=== PATIENT | female | born 1965 | race Caucasian/White ===

== ENCOUNTER → 2016-10-12 | Outpatient (CLI) | payer OTHER ==
[2014-05-21 11:39] VITALS: BP 123/51
[~2016-10-12] MED LIST: CALC-274 PO; COLE1TAB PO; DELTASONE; Diphenoxylate Hcl/Atropine PO; FLUT1DIS5 IH; FOLVITE; GABA-586 PO; GUAI600T47 PO; IBUP-1027 PO; MONT10TA6 PO; NAPR500T PO; OXYC-323 PO; PARO20TA99 PO; PROVENTIL HFA6.7 GM IH; SIMV20TA3 PO; ZIPR80CA2 PO; [UNRECOGNIZED DRUG - CODE]
--- NOTE | 2016-10-12 17:17 | KCIC ---
Bilateral digital diagnostic mammograms: Reason for examination: Left breast lump inferiorly. No previous examinations for comparison. The skin shows some thickening inferiorly at approximately the 7:00 C position of the left breast. The nipples show no abnormalities. No abnormal lymph nodes are seen. The breast parenchyma is predominantly fatty. (Breast density: Category A.) There is a small circumscribed lesion at approximately the 1:30 position 12 cm from the nipple in the left breast with no associated calcification. Ultrasound will follow. There are no other dominant masses, suspicious calcifications or architectural distortions. Impression: Skin thickening inferiorly at approximately the 7:00 C position of the left breast. Small 5 mm nodule in the 1:30 position of the left breast approximately 12 cm from the nipple. Ultrasound to follow. BI-RADS Category 0: Incomplete. Ultrasound to follow. Left breast ultrasound: Ultrasound examination of the left breast was performed with attention to the upper outer quadrant and axilla. In the 12:30 position 9 cm from the nipple, there is a hypoechoic circumscribed lesion measuring 5 mm in size consistent with a small septated cyst. This has benign appearance. There are also nodules consistent with intramammary lymph nodes along the pectoralis muscle in the low axilla at approximately the 1:00 position 12 cm from the nipple. No other focal lesions are seen in the left breast. No abnormal appearing lymph nodes are seen in the left axilla. At the 7:00 position 14 cm from the nipple and corresponding to the area of clinical concern, there appears to be a skin lesion consistent with a sebaceous cyst measuring approximately 1.3 cm in greatest dimension. IMPRESSION: 5 mm hypoechoic lesion consistent with a septated cyst at the 12:30 position of the left breast corresponding to the mammographic finding. Sebaceous cyst in the 7:00 position 14 cm from the nipple corresponding to the area of clinical concern. No suspicious lesion seen. Recommend reevaluation with ultrasound in 6 months. BI-RADS Category 3: Probably Benign. "Our facility is accredited by the [employer]ammography [employer]." This patient's information has been entered into a reminder system for the patient to be notified with the results of her examination and a target date for the next mammogram. Electronically signed by: Ethel Kaplan MD (10/12/2016 5:13 PM) [place] [id number]
== END | disposition home or self-care (01) ==
LOC: KCIC MAMMO 09:44
PROVIDERS: ATTEND Internal Medicine
DX: N63 Unspecified lump in breast (principal); L72.3 Sebaceous cyst
CPT/HCPCS: 76641; G0204; 77066

== ENCOUNTER → 2018-08-24 | Outpatient (CLI) | payer OTHER ==
[2014-05-21 11:39] VITALS: BP 123/51
[~2018-08-24] MED LIST changes: +ALBU2.5V8 IH; -GABA-586 PO; +GABA300C18 PO; +MONT10TA49 PO; -MONT10TA6 PO; +NAPR-683 PO; -NAPR500T PO; -OXYC-323 PO; +OXYC1TAB15 PO; -PROVENTIL HFA6.7 GM IH
--- NOTE | 2018-08-24 16:46 | RAD ---
SHOULDER 2+V RIGHT 08/24/2018 12:00 AM INDICATION: Arthritis COMPARISON: None available. TECHNIQUE: 3 views of the right shoulder are provided. FINDINGS: There is no acute fracture or dislocation. Bone mineralization is within normal limits. Mild joint space narrowing with minimal osteophytosis along the humeral head. Regional soft tissues are within normal limits. There is no soft tissue gas or osseous erosion. IMPRESSION: No acute fracture or dislocation. Mild osteoarthrosis of the right shoulder. Electronically signed by: Saira Payton MD (08/24/2018 4:43 PM) [id number]
== END | disposition home or self-care (01) ==
LOC: RAD 10:07
PROVIDERS: ATTEND Internal Medicine
DX: M19.011 Primary osteoarthritis, right shoulder (principal)
CPT/HCPCS: 73030

== ENCOUNTER 2020-05-14 11:21 | Inpatient (IN) | payer MEDICARE, OTHER ==
[~2020-05-14] VITALS: Ht 154.9 cm; Wt 93.7 kg
[~2020-05-14 11:21] MED LIST changes: -ALBU2.5V8 IH; +PROVENTIL HFA6.7 GM IH; +SIMV20TA18 PO; -SIMV20TA3 PO
[2020-05-14] MEDS ORDERED: methylPREDNISolone SOD SUCC PF 125 MG/2 ML VIAL. IV ONE (11:45)
--- NOTE | 2020-05-14 11:52 | RAD ---
AP chest. HISTORY: Short of air AP view was taken of the chest. Comparison is made with an old study from 2015. Heart is upper normal in size. There is slight blunting of the costophrenic angles small effusions are possible. There is interstitial infiltrates or edema in the lung bases. There has been mild worsening compared to the ol d study. PA and lateral views would be of benefit. IMPRESSION: 1. Possible small effusions. 2. Hazy interstitial lung disease or interstitial infiltrates in the lung bases. Electronically signed by: Ivan Stearns MD (05/14/2020 11:50 AM) [id number]
[2020-05-14] MEDS ORDERED: IPRATRPIUM/ALBUTEROL 0.5/2.5MG 3 ML NEBU. NEB ONE (12:00)
[2020-05-14] MEDS ORDERED: PIPERACILLIN/TAZOBACTAM 3.375 GM in IV NORMAL SALINE 50ML 50 ML IV ONE (12:00)
[2020-05-14 12:08] LABS: BASO % 1 % (0-3); EOS # 0.2 x10^3/uL (0.0-0.7); EOS % 7 % (0-3); HEMOGLOBIN 13.3 g/dL (12.0-15.5); LYMPH # 0.9 x10^3/uL (1.0-4.8); LYMPH % 32 % (24-48); MEAN CORPUSCULAR HEMOGLOBIN 32 pg (25-35); MEAN CORPUSCULAR HGB CONC 33 g/dL (31-37); MEAN CORPUSCULAR VOLUME 97 fL (79-100); MONO # 0.1 x10^3/uL (0.0-1.1); MONO % 3 % (0-9); NEUT # 1.6 x10^3/uL (1.8-7.7); NEUT % 58 % (31-73); PLATELET COUNT 99 x10^3/uL (140-400); RED BLOOD COUNT 4.22 x10^6/uL (3.50-5.40); RED CELL DISTRIBUTION WIDTH 15.9 % (11.5-14.5); WHITE BLOOD COUNT 2.9 x10^3/uL (4.0-11.0)
[2020-05-14 12:25] LABS: CALCIUM 7.6 mg/dL (8.5-10.1); CREATININE 0.8 mg/dL (0.6-1.0); GFR 73.9; POTASSIUM 3.3 mmol/L (3.5-5.1)
[2020-05-14] MEDS ORDERED: ACETAMINOPHEN 325 MG TABLET. PO ONE (12:30)
[2020-05-14 12:31] LABS: ALBUMIN 3.5 g/dL (3.4-5.0); DIRECT BILIRUBIN 0.2 mg/dL (0.0-0.2); TOTAL BILIRUBIN 0.6 mg/dL (0.2-1.0); TOTAL PROTEIN 6.5 g/dL (6.4-8.2)
[2020-05-14] MEDS ORDERED: IOHEXOL 350 MG/ML 100 ML VIAL. IV ONE (12:45)
--- NOTE | 2020-05-14 13:15 | PHYS DOC ---
Past Medical History Past Medical History: Asthma, COPD Additional Past Medical Histor: RA, fibromyalgia Past Surgical History: Tonsillectomy, Tubal ligation Smoking Status: Current Every Day Smoker Alcohol Use: None Drug Use: None General Adult EDM: Chief Complaint: SHORTNESS OF BREATH HPI: HPI: This is a pleasant 55-year-old female presenting the [facility] today wi th shortness of breath and dyspnea over the past 8 days. She is also had productive sputum. She has a history of COPD. It is worse with exertion. She denies any chest pain with her exertional dyspnea. She denies nausea vomiting. On arrival the patient was satting 89% placed on nasal cannula. Review of systems negative for abdominal pain diaphoresis vomiting fevers chills or any new rashes. She denies headache or nuchal rigidity. All other review of systems negative. ED course: 55-year-old female presenting with dyspnea. On arrival she is placed on nasal cannula. EKG obtained which shows sinus rhythm with regular rate. ST segments show mild ST depression in lead V3, V4 and V5. No ST elevation. Does not meet STEMI criteria. Nonspecific findings. Chest x-ray shows possible s mall effusions with hazy interstitial lung disease or infiltrates. White blood cell count is low with a leukopenia of 2.9. Platelet count 99. Chemistry panel shows an elevated proBNP at 153. Troponin within normal limits. Potassium 3.3. D-dimer is 2.09. CT angiogram ordered. Which shows a lung mass. Angiogram negative for pulmonary embolism. Will admit the patient to Dr. Caesar rosenberg's primary physician. Consult placed for our pulmonology team. Review of Systems: Review of Systems: Constitutional: Denies fever or chills. [] Eyes: Denies change in visual acuity. [] HENT: Denies nasal congestion or sore throat. [] Respiratory: Denies cough or shortness of breath. [] Cardiovascular: Denies chest pain or edema. [] GI: Denies abdominal pain, nausea, vomiting, bloody stools or diarrhea. [] : Denies dysuria. [] Musculoskeletal: Denies back pain or joint pain. [] Integument: Denies rash. [] Neurologic: Denies headache, focal weakness or sensory changes. [] Endocrine: Denies polyuria or polydipsia. [] Lymphatic: Denies swollen glands. [] Psychiatric: Denies depression or anxiety. [] Heart Score: C/O Chest Pain: No Risk Factors: Risk Factors: DM, Current or recent (<one month) smoker, HTN, HLP, family history of CAD, obesity. Risk Scores: Score 0 - 3: 2.5% MACE over next 6 weeks - Discharge Home Score 4 - 6: 20.3% MACE over next 6 weeks - Admit for Clinical Observation Score 7 - 10: 72.7% MACE over next 6 weeks - Early Invasive Strategies Current Medications: Current Medications Medications (Trade) Dose Ordered Sig/Mal Start Time Stop Time Status Last Admin Dose Admin Acetaminophen (Tylenol) 650 mg 1X ONCE 05/14/20 12:30 05/14/20 12:32 DC Albuterol/ Ipratropium (Duoneb) 3 ml 1X ONCE 05/14/20 12:00 05/14/20 12:01 DC 05/14/20 12:06 3 ML Iohexol (Omnipaque 350 Mg/ml) 100 ml 1X ONCE 05/14/20 12:45 05/14/20 12:46 DC Methylprednisolone Sodium Succinate (SOLU-Medrol 125MG VIAL) 125 mg 1X ONCE 05/14/20 11:45 05/14/20 11:46 DC 05/14/20 12:25 125 MG Piperacillin Sod/ Tazobactam Sod 3.375 gm/Sodium Chloride 50 ml @ 100 mls/hr 1X ONCE 05/14/20 12:00 05/14/20 12:29 DC 05/14/20 12:25 100 MLS/HR Allergies: Allergies: Allergies Coded Allergies Type Severity Reaction Last Updated Verified furosemide Allergy Intermediate 05/02/14 Yes Physical Exam: PE: Constitutional: Well developed, well nourished, not in extremis, non-toxic appearance. [] HENT: Normocephalic, atraumatic, bilateral external ears normal, oropharynx jacques st, no oral exudates, nose normal. [] Eyes: PERRLA, EOMI, conjunctiva normal, no discharge. [] Neck: Normal range of motion, no tenderness, supple, no stridor. [] Cardiovascular:Heart rate regular rhythm, no murmur [] Lungs & Thorax: Increased work of breathing. Prolonged expiratory phase. Wheezing present bilaterally. Abdomen: Bowel sounds normal, soft, no tenderness, no masses, no pulsatile masses. [] Skin: Warm, dry, no erythema, no rash. [] Back: No tenderness, no CVA tenderness. [] Extremities: No tenderness, no cyanosis, no clubbing, ROM intact, no edema. [] Neurologic: Alert and oriented X 3, normal motor function, normal sensory function, no focal deficits noted. [] Psychologic: Affect normal, judgement normal, mood normal. [] Current Patient Data: Labs: Laboratory Tests Test 05/14/20 11:55 White Blood Count 2.9 x10^3/uL (4.0-11.0) L Red Blood Count 4.22 x10^6/uL (3.50-5.40) Hemoglobin 13.3 g/dL (12.0-15.5) Hematocrit 41.0 % (36.0-47.0) Mean Corpuscular Volume 97 fL (79-100) Mean Corpuscular Hemoglobin 32 pg (25-35) Mean Corpuscular Hemoglobin Concent 33 g/dL (31-37) Red Cell Distribution Width 15.9 % (11.5-14.5) H Platelet Count 99 x10^3/uL (140-400) L Neutrophils (%) (Auto) 58 % (31-73) Lymphocytes (%) (Auto) 32 % (24-48) Monocytes (%) (Auto) 3 % (0-9) Eosinophils (%) (Auto) 7 % (0-3) H Basophils (%) (Auto) 1 % (0-3) Neutrophils # (Auto) 1.6 x10^3/uL (1.8-7.7) L Lymphocytes # (Auto) 0.9 x10^3/uL (1.0-4.8) L Monocytes # (Auto) 0.1 x10^3/uL (0.0-1.1) Eosinophils # (Auto) 0.2 x10^3/uL (0.0-0.7) Basophils # (Auto) 0.0 x10^3/uL (0.0-0.2) D-Dimer (Cyndie) 2.09 ug/mlFEU (0.00-0.50) H Sodium Level 144 mmol/L (136-145) Potassium Level 3.3 mmol/L (3.5-5.1) L Chloride Level 109 mmol/L (98-107) H Carbon Dioxide Level 24 mmol/L (21-32) Anion Gap 11 (6-14) Blood Urea Nitrogen 7 mg/dL (7-20) Creatinine 0.8 mg/dL (0.6-1.0) Estimated GFR (Cockcroft-Gault) 73.9 Glucose Level 127 mg/dL (70-99) H Calcium Level 7.6 mg/dL (8.5-10.1) L Total Bilirubin 0.6 mg/dL (0.2-1.0) Direct Bilirubin 0.2 mg/dL (0.0-0.2) Aspartate Amino Transferase (AST) 102 U/L (15-37) H Alanine Aminotransferase (ALT) 72 U/L (14-59) H Alkaline Phosphatase 55 U/L (46-116) Troponin I Quantitative < 0.017 ng/mL (0.000-0.055) LK-Wzs-J-Type Natriuretic Peptide 153 pg/mL (0-124) H Total Protein 6.5 g/dL (6.4-8.2) Albumin 3.5 g/dL (3.4-5.0) Lipase 114 U/L (73-393) Laboratory Tests 05/14/20 11:55 Laboratory Tests 05/14/20 11:55 Vital Signs: Vital Signs Date Time Temp Pulse Resp B/P (MAP) Pulse Ox O2 Delivery O2 Flow Rate FiO2 05/14/20 12:08 92 Nasal Cannula 3.0 05/14/20 11:25 98.3 95 25 144/77 (99) 98.3 EKG: EKG: [] Radiology/Procedures: Radiology/Procedures: [] Course & Med Decision Making: Course & Med Decision Making Pertinent Labs and Imaging studies reviewed. (See chart for details) [] Dragon Disclaimer: Dragon Disclaimer: This electronic medical record was generated, in whole or in part, using a voice recognition dictation system. Departure Departure Impression: Primary Impression: Hypoxia Additional Impressions: Lung mass COPD exacerbation Pneumonia Disposition: 09 ADMITTED INPT THIS HOSP Admitting Physician: Blane Reece Condition: STABLE Referrals: BLANE REECE MD (PCP) JAY GRIFFITH MD May 14, 2020 13:15
--- NOTE | 2020-05-14 14:22 | RAD ---
CTA CHEST History: Dyspnea Technique: CT of the chest was performed with intravenous contrast. PE protocol. Maximum intensity pr ojection coronal and sagittal reconstructions were performed. Exposure: One or more of the following individualized dose reduction techniques were utilized for thi s examination: 1. Automated exposure control 2. Adjustment of the mA and/or kV according to patient size 3. Use of iterative reconstruction technique. Comparison: None Findings: Chest: Spiculated the right upper lobe nodule measures 2.5 x 2.3 cm. Mildly enlarged right hilar lymp h nodes. Small mediastinal lymph nodes. Right lower lobe solid and groundglass nodule measures 1.5 x 1.7 cm (series 3 image 78). Mild atheromatous plaque within the aortic arch. No large central or segmental pulmonary embolus. Adina luation for distal pulmonary arteries degraded by respiratory motion. No aortic aneurysm or dissectio n. Moderate pulmonary emphysema. Bibasilar interstitial opacities with multifocal groundglass opacities. Upper abdomen: The imaged upper abdomen is unremarkable. Bones: No pathologic osseous lesions. Impression: 1. No definite pulmonary embolus although evaluation for distal pulmonary emboli is degraded by resp iratory motion. 2. Right upper lobe spiculated mass, concerning for primary malignancy. Recommend PET/CT and/or biop sy to further evaluate. 3. Right hilar lymphadenopathy. 4. Right lower lobe solid and groundglass nodule, may represent metastasis. Recommend attention on f ollow-up. 5. Interstitial thickening with multifocal groundglass opacities most prominent within the lung base s, may relate to pulmonary edema or infection although a component of chronic interstitial changes is possible. 6. Moderate pulmonary emphysema. FOR INTERNAL CODING PURPOSES Critical result: Findings discussed with Dr. Castillo at 05/14/2020 2:11 PM. RESULT CODE: (C) Electronically signed by: Abelino Willson DO (05/14/2020 2:20 PM) [id number]
[2020-05-14 17:30] VITALS: BP 152/68
[2020-05-14] MEDS ORDERED: LORA10TA68 PO (18:21)
[2020-05-14] MEDS ORDERED: METH2.5T PO (18:21)
[2020-05-14] MEDS ORDERED: OXYC1TAB22 PO (18:21)
[2020-05-14] MEDS ORDERED: OMEP40CA45 PO (18:21)
[2020-05-14] MEDS ORDERED: LIDO700A21 TP (18:21)
[2020-05-14] MEDS ORDERED: GABA600T7 PO (18:21)
[2020-05-14] MEDS ORDERED: TOCI162P SQ (18:21)
[2020-05-14] MEDS ORDERED: FOLI0.8C PO (18:21)
[2020-05-14] MEDS ORDERED: BENZ-8 PO (18:21)
[2020-05-14] MEDS ORDERED: OMEG1CAP50 PO (18:21)
[2020-05-14] MEDS ORDERED: ALBU2.5V8 IH (18:21)
[2020-05-14] MEDS ORDERED: TOPI50TA8 PO (18:21)
[2020-05-14] MEDS ORDERED: BUDE10.2 IH (18:21)
[2020-05-14] MEDS ORDERED: DICL100G54 TP (18:21)
[2020-05-14] MEDS ORDERED: ASPI-886 PO (18:21)
[2020-05-14] MEDS ORDERED: IPRA3AMP29 NEB (18:21)
[2020-05-14 19:00] VITALS: BP 176/84
[2020-05-14] MEDS ORDERED: BENZONATATE 100 MG CAPSULE. PO PRN (19:30)
[2020-05-14] MEDS ORDERED: ALBUTEROL SULFATE 8GM INHALER. INH PRN (19:30)
[2020-05-14] MEDS ORDERED: DEXAMETHASONE SOD PHOS 4 MG/ML VIAL IVP ONE (20:00)
[2020-05-14] MEDS: AZITHROMYCIN 500 MG in IV NORMAL SALINE 250ML 250 ML IV SCH (20:25)
[2020-05-14] MEDS: cefTRIAXone IV Push 1 GM VIAL. IVP SCH (20:25)
[2020-05-14] MEDS: GABAPENTIN 300 MG CAPSULE. PO SCH (20:26)
[2020-05-14] MEDS: TOPIRAMATE 25 MG TABLET. PO SCH (20:26)
[2020-05-14] MEDS: MONTELUKAST SODIUM 10 MG TABLET. PO SCH (20:26)
[2020-05-14] MEDS: DICLOFENAC SODIUM 1% TOPICAL GEL 100GM TUBE. TP SCH (20:27)
[2020-05-14] MEDS: PATCH REMOVAL. MC SCH (20:50)
[2020-05-14] MEDS: HYDROcodone/APAP 10/325 1 TAB TABLET PO PRN (20:58)
[2020-05-14 22:50] VITALS: BP 128/59
[2020-05-15] MEDS: DEXAMETHASONE SOD PHOS 4 MG/ML VIAL IVP SCH ×4 (00:52→18:07)
[2020-05-15 03:16] VITALS: BP 137/64
[2020-05-15] MEDS: PANTOPRAZOLE 40 MG TABLET.DR. PO SCH (06:10)
[2020-05-15 06:17] LABS: BASO % 0 % (0-3); EOS % 0 % (0-3); HEMATOCRIT 41.1 % (36.0-47.0); HEMOGLOBIN 13.6 g/dL (12.0-15.5); LYMPH # 0.4 x10^3/uL (1.0-4.8); LYMPH % 13 % (24-48); MEAN CORPUSCULAR HEMOGLOBIN 32 pg (25-35); MEAN CORPUSCULAR HGB CONC 33 g/dL (31-37); MEAN CORPUSCULAR VOLUME 97 fL (79-100); MONO % 1 % (0-9); NEUT # 2.9 x10^3/uL (1.8-7.7); NEUT % 86 % (31-73); PLATELET COUNT 111 x10^3/uL (140-400); RED BLOOD COUNT 4.23 x10^6/uL (3.50-5.40); RED CELL DISTRIBUTION WIDTH 15.8 % (11.5-14.5); WHITE BLOOD COUNT 3.3 x10^3/uL (4.0-11.0)
[2020-05-15 06:33] LABS: ALBUMIN 3.3 g/dL (3.4-5.0); ALBUMIN/GLOBULIN RATIO 0.9 (1.0-1.7); CALCIUM 7.5 mg/dL (8.5-10.1); CREATININE 0.7 mg/dL (0.6-1.0); GFR 86.2; POTASSIUM 4.1 mmol/L (3.5-5.1); TOTAL BILIRUBIN 0.5 mg/dL (0.2-1.0); TOTAL PROTEIN 6.8 g/dL (6.4-8.2)
[2020-05-15 07:00] VITALS: BP 147/65
[2020-05-15 08:38] LABS: % BANDS 4 % (0-9); % LYMPHS 13 % (24-48); % MONOS 1 % (0-10); % SEGS 82 % (35-66); NUCLEATED RBC 2; PLT ESTIMATE DECREASED (ADEQUATE)
--- NOTE | 2020-05-15 08:38 | PDOC ---
Provider Note Date of Service: DATE: 05/15/20 TIME: 08:38 Provider Note H&P dictated.#[id number]. Justifications for Admission Other Justification MEGHAN REECE MD May 15, 2020 08:38
[2020-05-15] MEDS: DICLOFENAC SODIUM 1% TOPICAL GEL 100GM TUBE. TP SCH ×4 (09:00→20:40)
[2020-05-15] MEDS: LIDOCAINE (700MG/PATCH) PATCH. TP SCH ×2 (09:38→13:40)
--- NOTE | 2020-05-15 10:54 | CONS ---
DATE OF CONSULTATION: 05/15/2020 PULMONARY CONSULTATION ATTENDING PHYSICIAN: Blane Nino MD REASON FOR CONSULTATION: Lung mass, dyspnea. HISTORY OF PRESENT ILLNESS: The patient is a 55-year-old female who smoked for about 25 years, quit 4 years ago. She was brought into the hospital with complaint of shortness of breath and wheezing. The patient states she had productive sputum, which was initially yellow-green and then had some blood-tinged sputum as well. No chest pain. No headache. No nausea or vomiting. No diarrhea. No dysuria. No focal weakness. She was hypoxic on arrival and was placed on nasal cannula. Saturations were 89% on room air. Her EKG showed some mild ST segment depressions. She underwent CTA chest, which was reviewed by me. The patient has a mass in the right upper lobe spiculated 2.5 x 2.3 cm in size. She has mildly enlarged right hilar lymph nodes. She also has a right lower lobe partly solid and ground glass nodule measuring 1.5 cm. The patient has evidence of emphysema. There were also bilateral lower lobe interstitial opacities. Consultation requested for further evaluation and management. She has a COVID test, which is pending. PAST MEDICAL HISTORY: Significant for long tobacco use, suspect COPD, history of fibromyalgia and rheumatoid arthritis. PAST SURGICAL HISTORY: Tonsillectomy and tubal ligation. SOCIAL HISTORY: Smoker for 25 years, quit 4 years ago. ALLERGIES: FUROSEMIDE. MEDICATIONS: Reviewed as listed in the MRAD including Lovenox, full dose and she is on dexamethasone along with antibiotic, Rocephin and Zithromax. REVIEW OF SYSTEMS: Twelve-point system obtained. Pertinent positives discussed in my history of present illness, otherwise noncontributory. All systems that were negative were reviewed as well. FAMILY HISTORY: Noncontributory to lungs. PHYSICAL EXAMINATION: VITAL SIGNS: Reviewed. Pulse ox 93% on 3 liters. NECK: Supple. LUNGS: With diminished breath sounds with occasional wheezes. CARDIOVASCULAR: With a regular rate. ABDOMEN: Soft. EXTREMITIES: With no pitting edema. LABORATORY DATA: Reviewed. Her white cell count 3.3, hemoglobin 13.6 and platelets are 111. BUN 18, creatinine 0.7. Troponin less than 0.017. The proBNP is 153. D-dimer 2.09. IMPRESSION: 1. Acute hypoxic respiratory failure secondary to acute exacerbation of chronic obstructive pulmonary disease and interstitial pneumonia. 2. Less likely congestive heart failure. The proBNP is normal. 3. Abnormal CT chest with a spiculated 2.5 cm mass in the right upper lobe, mildly enlarged right hilar lymph node. She also has a partly solid and partly ground glass nodule 1.5 cm in the right lower lobe. This is suspicious for underlying malignancy. She did have a weight loss of 16 pounds, but it was intentional. 4. Leukopenia, could be viral infection. Needs to rule out COVID-19. RECOMMENDATIONS: 1. Continue present oxygen, keep saturation 92% and above. 2. No evidence of pulmonary embolism. Lovenox dose can be reduced to 40 mg subcutaneous daily. 3. Continue IV steroids. 4. Continue nebulizer treatment. 5. Continue empiric antibiotics. 6. Discussed with the patient regarding the option of CT-guided biopsy. We will schedule it on Monday once COVID is ruled out. 7. Discussed with RN and we will follow along with you. YANE WILKINS MD DR: PETER/nandini JOB#: [id number] / [id number]
[2020-05-15 11:00] VITALS: BP 124/60
[2020-05-15] MEDS: OMEGA-3 FATTY ACIDS/FISH OIL 1,000 MG CAPSULE. PO SCH (11:48)
[2020-05-15] MEDS: CETIRIZINE HCL 10 MG TABLET. PO SCH (11:48)
[2020-05-15] MEDS: ASPIRIN ENTERIC COATED 81 MG TABLET.DR. PO SCH (11:48)
[2020-05-15] MEDS: FOLIC ACID 1 MG TABLET. PO SCH (11:48)
[2020-05-15] MEDS: GABAPENTIN 300 MG CAPSULE. PO SCH ×3 (11:48→20:39)
[2020-05-15] MEDS: TOPIRAMATE 25 MG TABLET. PO SCH ×2 (11:49→20:39)
[2020-05-15] MEDS: PARoxetine 20 MG TABLET PO SCH (11:49)
--- NOTE | 2020-05-15 13:10 | HP ---
ADMIT DATE: 05/14/2020 REASON FOR ADMISSION TO THE HOSPITAL: Cough, shortness of breath and possibility of COVID pneumonia. HISTORY OF PRESENT ILLNESS: The patient is a 55-year-old female. The patient has rheumatoid arthritis. She is on immunosuppressant medication, methotrexate injection once a week from Rheumatology. She was having cough and congestion with some phlegm, got progressively worse and came to the Emergency Room. She was hypoxic, 89 on room air, was placed on oxygen. Chest x-ray shows some basilar infiltrates. Her D-dimer was elevated, so CTA was done. No PE, but shows a lung mass with adenopathy and some basilar infiltrates. The patient was admitted for treatment of pneumonia and further workup for the lung nodule. PAST MEDICAL HISTORY: 1. History of rheumatoid arthritis. 2. Fibromyalgia. 3. Hypertension. 4. Hyperlipidemia. 5. COPD. PAST SURGICAL HISTORY: 1. She has had a tubal ligation. 2. She had a left hip replacement for aseptic necrosis. ALLERGIES: To FUROSEMIDE. MEDICATIONS AT HOME: 1. Albuterol inhaler. 2. DuoNeb four times daily. 3. Methotrexate 2.5 mg six tablets once a week. 4. Oxycodone 10/325. 5. Albuterol inhaler. 6. Symbicort 2 puffs twice a day. 7. Calcium with vitamin D. 8. Actemra injection subcutaneously weekly. 9. Folic acid daily. 10 Aspirin 81 mg daily. 11. Voltaren gel. 12. Folic acid 1 daily. 13. Gabapentin 600 mg three times daily. 14. Mucinex. 15. Lidoderm patch daily. 16. Loratadine daily. 17. Singulair 10 mg daily. 18. Fish oil daily. 19. Omeprazole 40 mg daily. 20. Paxil 20 mg daily. 21. Topiramate 50 mg twice a day. PERSONAL AND SOCIAL HISTORY: Smoked one and a half pack for more than 30 years. Denies alcohol. The patient is on chronic pain medications. FAMILY HISTORY: Positive for emphysema, cancers in the family and hypertension. REVIEW OF SYMPTOMS: Complains of cough, some light tinged phlegm. More wheezing, shortness of breath, feeling tired. Rest of the 14 system was reviewed and negative. PHYSICAL EXAMINATION: GENERAL: Female, in mild distress secondary to coughing spells. VITAL SIGNS: Temperature 97, pulse 80, respirations 18, saturation 89 on room air, blood pressure 144/77. HEENT: Head is atraumatic. Pupils equal. Oral cavity, slight congestion. NECK: Supple. Thyroid not enlarged. JVD not elevated. CHEST: Symmetrical. CARDIOVASCULAR: S1, S2. LUNGS: Bilateral wheezing. ABDOMEN: Soft. Bowel sounds present. No mass palpable. EXTERNAL GENITALIA: No Krishnamurthy. RECTAL: Deferred. EXTREMITIES: No calf tenderness. No edema. Scar of left hip replacement. NEUROLOGIC: Moving all extremities. No focal deficits noted. LABORATORY DATA: Shows a white count of 2.9, hemoglobin 13, platelets 99. D-dimer 2.0. Electrolytes are sodium 144, potassium 3.3, chloride 109, bicarbonate 24, anion gap 11, BUN 7, creatinine 0.8, glucose 127. AST 102, ALT 72. BNP 153. Troponin was negative. Lipase was normal. IMAGING: Chest x-ray shows lung disease, infiltrates in the lung bases. CT of the chest angiogram shows no pulmonary embolism. Right upper lobe mass 2.5 cm. Right lower, another mass, 1.5 x 1.7 cm. Right hilar adenopathy. Interstitial thickening. Opacities at the bases. Pulmonary emphysema. FINAL IMPRESSION: 1. Lung infiltrates in the bases. Possibility of pneumonia, rule out COVID infection. 2. Right lung mass with adenopathy as well as another mass in the lower right lung, rule out metastasis. 3. Rheumatoid arthritis, on immunosuppressants, methotrexate and Actemra injections. 4. Chronic smoker for more than 30 years. 5. Fibromyalgia. PLAN: At this time, the patient is admitted to the hospital. Broad-spectrum antibiotics after blood and sputum cultures. Started on Rocephin and Zithromax. Dexamethasone was added for bronchospasm. Also, nose swab for COVID. Also, pulmonary consultation. DVT prophylaxis with high dose Lovenox. See how she improves in the next 24-48 hours. MEGHAN REECE MD DR: HANY/nandini JOB#: [id number] / [id number]
[2020-05-15 15:00] VITALS: BP 124/62
[2020-05-15] MEDS: HYDROcodone/APAP 10/325 1 TAB TABLET PO PRN ×2 (16:40→23:25)
--- NOTE | 2020-05-15 17:02 | NUR ---
SW following for discharge planning. Pt admitted with pneumonia. Pt on 3l 02. Pt on a cardiac diet. Pt COVID pending. SW following.
[2020-05-15 19:00] VITALS: BP 134/61
[2020-05-15] MEDS: AZITHROMYCIN 500 MG in IV NORMAL SALINE 250ML 250 ML IV SCH (19:59)
[2020-05-15] MEDS: cefTRIAXone IV Push 1 GM VIAL. IVP SCH (20:00)
[2020-05-15] MEDS: MONTELUKAST SODIUM 10 MG TABLET. PO SCH (20:39)
[2020-05-15] MEDS: PATCH REMOVAL. MC SCH (20:45)
[2020-05-15 22:55] VITALS: BP 115/57
[2020-05-15] MEDS ORDERED: SIMETHICONE 80 MG TAB.CHEW PO PRN (23:00)
[2020-05-16] MEDS: DEXAMETHASONE SOD PHOS 4 MG/ML VIAL IVP SCH ×4 (00:14→17:49)
[2020-05-16 03:57] VITALS: BP 126/61
[2020-05-16] MEDS: PANTOPRAZOLE 40 MG TABLET.DR. PO SCH (05:53)
[2020-05-16 07:00] VITALS: BP 153/74
[2020-05-16] MEDS: GABAPENTIN 300 MG CAPSULE. PO SCH ×3 (08:47→22:38)
[2020-05-16] MEDS: OMEGA-3 FATTY ACIDS/FISH OIL 1,000 MG CAPSULE. PO SCH (08:47)
[2020-05-16] MEDS: ASPIRIN ENTERIC COATED 81 MG TABLET.DR. PO SCH (08:47)
[2020-05-16] MEDS: PARoxetine 20 MG TABLET PO SCH (08:48)
[2020-05-16] MEDS: CETIRIZINE HCL 10 MG TABLET. PO SCH (08:48)
[2020-05-16] MEDS: ENOXAPARIN 40 MG/0.4 ML SYRINGE. SQ SCH (08:48)
[2020-05-16] MEDS: TOPIRAMATE 25 MG TABLET. PO SCH ×2 (08:48→22:39)
[2020-05-16] MEDS: FOLIC ACID 1 MG TABLET. PO SCH (08:48)
[2020-05-16] MEDS: DICLOFENAC SODIUM 1% TOPICAL GEL 100GM TUBE. TP SCH ×4 (08:49→21:00)
[2020-05-16] MEDS: HYDROcodone/APAP 10/325 1 TAB TABLET PO PRN (09:04)
--- NOTE | 2020-05-16 10:15 | PDOC ---
IM PROGRESS NOTES- Subjective Subjective Has cough and congestion. She is feeling slightly better. Objective Vitals/I&O Vital Signs Date Time Temp Pulse Resp B/P (MAP) Pulse Ox O2 Delivery O2 Flow Rate FiO2 05/16/20 09:04 20 92 Nasal Cannula 3.0 05/16/20 07:00 97.7 68 153/74 (100) 97.7 I & O 05/15/20 05/15/20 05/16/20 15:00 23:00 07:00 Intake Total 320 ml 120 ml Balance 320 ml 120 ml Physical Exam Physical Exam General appearance - alert,ill appearing, and in mild distress and oriented to person, place, and time Mental Status - alert, oriented to person, place, and time, affect appropriate to mood Head - normal Chest -decreased breath sounds at bases with occasional coarse breath sounds. Heart - S1 and S2 normal Abdomen - soft, nontender Neurological - alert and oriented Extremities - no pedal edema Meds Current Medications Medications (Trade) Dose Ordered Sig/Mal Route PRN Reason Start Time Stop Time Status Last Admin Dose Admin Enoxaparin Sodium (Lovenox 40mg Syringe) 40 mg DAILY SQ 05/16/20 09:00 05/16/20 08:48 Simethicone (Gas-X) 80 mg PRN TID PRN PO GAS / BLOATING 05/15/20 23:00 05/15/20 23:25 Assessment Assessment 1. Lung infiltrates in the bases. Possibility of pneumonia, rule out COVID infection. 2. Right lung mass with adenopathy as well as another mass in the lower right lung, rule out metastasis. 3. Rheumatoid arthritis, on immunosuppressants, methotrexate and Actemra injections. 4. Chronic smoker for more than 30 years. 5. Fibromyalgia. PLAN: At this time, the patient is admitted to the hospital. Broad-spectrum antibiotics after blood and sputum cultures. Started on Rocephin and Zithromax. Dexamethasone was added for bronchospasm. Also, nose swab for COVID. Also, pulmonary consultation. DVT prophylaxis with Lovenox. COVID-19 pneumonia. Patient is on IV Rocephin, Zithromax and IV Decadron. Consider treatment with remdesivir Consult Dr. Melvin Rajan for infectious disease evaluation and management. Recheck labs in a.m. Lung biopsy at a later date once COVID-19 infection is better. Discussed with Dr. Seth. Monitor blood sugar. The results discussed with the patient. Patient's will also get tested for COVID-19 today. Plan Plan For more details regarding further plans, please refer to the orders. Justifications for Admission Other Justification KARIS VERAS MD May 16, 2020 10:15
--- NOTE | 2020-05-16 10:59 | PDOC ---
PULMONARY PROGRESS NOTES DATE: 05/16/20 TIME: 10:57 Subjective no soa on O2 Vitals Vital Signs Date Time Temp Pulse Resp B/P (MAP) Pulse Ox O2 Delivery O2 Flow Rate FiO2 05/16/20 09:04 20 92 Nasal Cannula 3.0 05/16/20 07:00 97.7 68 153/74 (100) 97.7 General: Alert Lungs: Clear Cardiovascular: S1 Abdomen: Soft Neuro Exam: Alert Extremities: No Edema Skin: Warm Labs Laboratory Tests Test 05/14/20 11:55 05/14/20 11:57 05/15/20 04:40 White Blood Count 2.9 x10^3/uL (4.0-11.0) 3.3 x10^3/uL (4.0-11.0) Red Blood Count 4.22 x10^6/uL (3.50-5.40) 4.23 x10^6/uL (3.50-5.40) Hemoglobin 13.3 g/dL (12.0-15.5) 13.6 g/dL (12.0-15.5) Hematocrit 41.0 % (36.0-47.0) 41.1 % (36.0-47.0) Mean Corpuscular Volume 97 fL (79-100) 97 fL (79-100) Mean Corpuscular Hemoglobin 32 pg (25-35) 32 pg (25-35) Mean Corpuscular Hemoglobin Concent 33 g/dL (31-37) 33 g/dL (31-37) Red Cell Distribution Width 15.9 % (11.5-14.5) 15.8 % (11.5-14.5) Platelet Count 99 x10^3/uL (140-400) 111 x10^3/uL (140-400) Neutrophils (%) (Auto) 58 % (31-73) 86 % (31-73) Lymphocytes (%) (Auto) 32 % (24-48) 13 % (24-48) Monocytes (%) (Auto) 3 % (0-9) 1 % (0-9) Eosinophils (%) (Auto) 7 % (0-3) 0 % (0-3) Basophils (%) (Auto) 1 % (0-3) 0 % (0-3) Neutrophils # (Auto) 1.6 x10^3/uL (1.8-7.7) 2.9 x10^3/uL (1.8-7.7) Lymphocytes # (Auto) 0.9 x10^3/uL (1.0-4.8) 0.4 x10^3/uL (1.0-4.8) Monocytes # (Auto) 0.1 x10^3/uL (0.0-1.1) 0.0 x10^3/uL (0.0-1.1) Eosinophils # (Auto) 0.2 x10^3/uL (0.0-0.7) 0.0 x10^3/uL (0.0-0.7) Basophils # (Auto) 0.0 x10^3/uL (0.0-0.2) 0.0 x10^3/uL (0.0-0.2) D-Dimer (Cyndie) 2.09 ug/mlFEU (0.00-0.50) Sodium Level 144 mmol/L (136-145) 141 mmol/L (136-145) Potassium Level 3.3 mmol/L (3.5-5.1) 4.1 mmol/L (3.5-5.1) Chloride Level 109 mmol/L (98-107) 109 mmol/L (98-107) Carbon Dioxide Level 24 mmol/L (21-32) 23 mmol/L (21-32) Anion Gap 11 (6-14) 9 (6-14) Blood Urea Nitrogen 7 mg/dL (7-20) 8 mg/dL (7-20) Creatinine 0.8 mg/dL (0.6-1.0) 0.7 mg/dL (0.6-1.0) Estimated GFR (Cockcroft-Gault) 73.9 86.2 Glucose Level 127 mg/dL (70-99) 148 mg/dL (70-99) Calcium Level 7.6 mg/dL (8.5-10.1) 7.5 mg/dL (8.5-10.1) Total Bilirubin 0.6 mg/dL (0.2-1.0) 0.5 mg/dL (0.2-1.0) Direct Bilirubin 0.2 mg/dL (0.0-0.2) Aspartate Amino Transf (AST/SGOT) 102 U/L (15-37) 83 U/L (15-37) Alanine Aminotransferase (ALT/SGPT) 72 U/L (14-59) 74 U/L (14-59) Alkaline Phosphatase 55 U/L (46-116) 51 U/L (46-116) Troponin I Quantitative < 0.017 ng/mL (0.000-0.055) ND-Gdp-W-Type Natriuretic Peptide 153 pg/mL (0-124) Total Protein 6.5 g/dL (6.4-8.2) 6.8 g/dL (6.4-8.2) Albumin 3.5 g/dL (3.4-5.0) 3.3 g/dL (3.4-5.0) Lipase 114 U/L (73-393) Coronavirus (PCR) Detected (Not Detected) Segmented Neutrophils % 82 % (35-66) Band Neutrophils % 4 % (0-9) Lymphocytes % 13 % (24-48) Monocytes % 1 % (0-10) Nucleated Red Blood Cells 2 Platelet Estimate Decreased (ADEQUATE) Giant Platelets Occ BUN/Creatinine Ratio 11 (6-20) Albumin/Globulin Ratio 0.9 (1.0-1.7) Medications Active Scripts Medications Dose Route/Sig Max Daily Dose Days Date Category Dose Instructions Topiramate 50 Mg Tablet 1 Tab PO BID 30 05/14/20 Reported Percocet 10-325 Mg Tablet (Oxycodone/Acetaminophen) 1 Each Tablet 1 Tab PO PRN BID PRN MDD 2 Tablet(s) 5 05/14/20 Reported Omeprazole 40 Mg Capsule.dr 1 Cap PO DAILY 05/14/20 Reported Methotrexate (Methotrexate Sodium) 2.5 Mg Tablet 6 Tab PO QSU 05/14/20 Reported Lidocaine PATCH (Lidocaine) 1 Each Adh..patch 1 Each TP DAILY 05/14/20 Reported REMOVE AFTER 12 HOURS Gabapentin 600 Mg Tablet 600 Mg PO TID 05/14/20 Reported Folic Acid 0.8 Mg Capsule 1 Cap PO DAILY 30 05/14/20 Reported Fish Oil 1,000 Mg Softgel ([place]-3 Fatty Acids/Fish Oil) 1 Each Capsule 2 Cap PO DAILY 30 05/14/20 Reported Voltaren (Diclofenac Sodium) 100 Gm Gel..gram. 1 Gm TP QID 30 05/14/20 Reported apply to affected area(s) Claritin (Loratadine) 10 Mg Tablet 1 Tab PO DAILY 30 05/14/20 Reported Symbicort 160-4.5 Mcg Inhaler (Budesonide/Formoterol Fumarate) 10.2 Gm Hfa.aer.ad 2 Puff IH BID 05/14/20 Reported Duoneb 0.5-3(2.5) Mg/3 Ml (Albuterol/Ipratropium) 3 Ml Ampul.neb 3 Ml NEB QID 05/14/20 Reported Benzonatate 100 Mg Capsule 100 Mg PO TID PRN 05/14/20 Reported Aspirin Ec (Aspirin) 81 Mg Tablet.dr 81 Mg PO DAILY 05/14/20 Reported Actemra Actpen (Tocilizumab) 162 Mg/0.9 Ml Pen.injctr 162 Mg SQ QSU 05/14/20 Reported Proair Hfa (Albuterol Sulfate) 8.5 Gm Hfa.aer.ad 2 Puff IH PRN Q4-6HRS PRN 21 05/14/20 Reported [Diphenoxylate Hcl/Atropine] 1 TAB Tablet 1 Tab PO PRN QID PRN 05/21/14 Rx Singulair Tablet (Montelukast Sodium) 10 Mg Tablet 10 Mg PO HS 05/02/13 Reported [Deltasone] 05/02/13 Reported [Folvite] DAILY 05/02/13 Reported Mucinex (Guaifenesin) 600 Mg Tablet.er 600 Mg PO BID 05/02/13 Reported Proventil Hfa Inhaler (Albuterol Sulfate) 6.7 Gm Hfa.aer.ad 6.7 Gm IH Q4HRS 05/02/13 Reported Percocet 5-325 Mg Tablet (Oxycodone/Acetaminophen) 1 Each Tablet 1 Each PO Q4HRS 05/02/13 Reported [Lioresol] TID 05/02/13 Reported Paxil (Paroxetine Hcl) 20 Mg Tablet 20 Mg PO DAILY 05/02/13 Reported Calcium + Vitamin D3 Caplet (Calcium Carb & Cit/Vitamin D3) 1 Each Tablet.er 1 Each PO 05/02/13 Reported Impression . 1. Acute hypoxic respiratory failure secondary to acute exacerbation of chronic obstructive pulmonary disease and viral interstitial pneumonia./ COVID-19 positive 2. Less likely congestive heart failure. The proBNP is normal. 3. Abnormal CT chest with a spiculated 2.5 cm mass in the right upper lobe, mildly enlarged right hilar lymph node. She also has a partly solid and partly ground glass nodule 1.5 cm in the right lower lobe. This is suspicious for underlying malignancy. She did have a weight loss of 16 pounds, but it was intentional. 4. Leukopenia, could be viral infection. due to COVID-19. Plan . 1. Continue present oxygen, keep saturation 92% and above. 2. No evidence of pulmonary embolism. Lovenox dose reduced to 40 mg subcutaneous daily. 3. Continue IV steroids. 4. Continue nebulizer treatment. 5. Continue empiric antibiotics. 6. cance CT-guided biopsy . will do as OP in 1-2 weeks 7. Discussed with RN and we will follow along with you. YANE WILKINS MD May 16, 2020 10:59
[2020-05-16 11:00] VITALS: BP 113/53
[2020-05-16] MEDS ORDERED: REMDESIVIR LOAD in IV NORMAL SALINE 250ML TV IV ONE (12:00)
[2020-05-16 15:00] VITALS: BP 132/61
[2020-05-16] MEDS: INSULIN LISPRO 300 UNITS/3 ML VIAL. SQ SCH (16:30)
[2020-05-16 19:55] VITALS: BP 146/67
[2020-05-16] MEDS: PATCH REMOVAL. MC SCH (21:00)
[2020-05-16] MEDS: cefTRIAXone IV Push 1 GM VIAL. IVP SCH (22:38)
[2020-05-16] MEDS: AZITHROMYCIN 500 MG in IV NORMAL SALINE 250ML 250 ML IV SCH (22:38)
[2020-05-16] MEDS: MONTELUKAST SODIUM 10 MG TABLET. PO SCH (22:39)
[2020-05-16 23:38] VITALS: BP 151/70
[2020-05-17 03:24] VITALS: BP 143/67
[2020-05-17] MEDS: DEXAMETHASONE SOD PHOS 4 MG/ML VIAL IVP SCH ×4 (06:26→21:39)
[2020-05-17 06:32] LABS: BASO % 0 % (0-3); EOS % 0 % (0-3); HEMATOCRIT 42.4 % (36.0-47.0); HEMOGLOBIN 13.8 g/dL (12.0-15.5); LYMPH % 16 % (24-48); MEAN CORPUSCULAR HEMOGLOBIN 32 pg (25-35); MEAN CORPUSCULAR HGB CONC 33 g/dL (31-37); MEAN CORPUSCULAR VOLUME 97 fL (79-100); MONO # 0.2 x10^3/uL (0.0-1.1); MONO % 4 % (0-9); NEUT % 80 % (31-73); PLATELET COUNT 144 x10^3/uL (140-400); RED BLOOD COUNT 4.39 x10^6/uL (3.50-5.40); RED CELL DISTRIBUTION WIDTH 15.8 % (11.5-14.5); WHITE BLOOD COUNT 6.2 x10^3/uL (4.0-11.0)
[2020-05-17 07:00] VITALS: BP 165/76
[2020-05-17 07:13] LABS: ALBUMIN/GLOBULIN RATIO 0.9 (1.0-1.7); CALCIUM 7.5 mg/dL (8.5-10.1); CREATININE 0.9 mg/dL (0.6-1.0); GFR 64.5; POTASSIUM 3.9 mmol/L (3.5-5.1); TOTAL BILIRUBIN 0.4 mg/dL (0.2-1.0); TOTAL PROTEIN 6.4 g/dL (6.4-8.2)
[2020-05-17] MEDS: INSULIN LISPRO 300 UNITS/3 ML VIAL. SQ SCH ×2 (07:30→16:30)
--- NOTE | 2020-05-17 08:03 | PDOC ---
Infectious Disease Note Vital Sign Vital Signs Vital Signs Date Time Temp Pulse Resp B/P (MAP) Pulse Ox O2 Delivery O2 Flow Rate FiO2 05/17/20 03:24 98.5 63 16 143/67 (92) 95 Nasal Cannula 2.0 98.5 Labs Lab Laboratory Tests Test 05/16/20 11:57 05/16/20 17:15 05/17/20 05:40 05/17/20 07:26 Glucose (Fingerstick) 180 mg/dL (70-99) 175 mg/dL (70-99) 110 mg/dL (70-99) White Blood Count 6.2 x10^3/uL (4.0-11.0) Red Blood Count 4.39 x10^6/uL (3.50-5.40) Hemoglobin 13.8 g/dL (12.0-15.5) Hematocrit 42.4 % (36.0-47.0) Mean Corpuscular Volume 97 fL (79-100) Mean Corpuscular Hemoglobin 32 pg (25-35) Mean Corpuscular Hemoglobin Concent 33 g/dL (31-37) Red Cell Distribution Width 15.8 % (11.5-14.5) Platelet Count 144 x10^3/uL (140-400) Neutrophils (%) (Auto) 80 % (31-73) Lymphocytes (%) (Auto) 16 % (24-48) Monocytes (%) (Auto) 4 % (0-9) Eosinophils (%) (Auto) 0 % (0-3) Basophils (%) (Auto) 0 % (0-3) Neutrophils # (Auto) 5.0 x10^3/uL (1.8-7.7) Lymphocytes # (Auto) 1.0 x10^3/uL (1.0-4.8) Monocytes # (Auto) 0.2 x10^3/uL (0.0-1.1) Eosinophils # (Auto) 0.0 x10^3/uL (0.0-0.7) Basophils # (Auto) 0.0 x10^3/uL (0.0-0.2) Sodium Level 145 mmol/L (136-145) Potassium Level 3.9 mmol/L (3.5-5.1) Chloride Level 112 mmol/L (98-107) Carbon Dioxide Level 27 mmol/L (21-32) Anion Gap 6 (6-14) Blood Urea Nitrogen 24 mg/dL (7-20) Creatinine 0.9 mg/dL (0.6-1.0) Estimated GFR (Cockcroft-Gault) 64.5 BUN/Creatinine Ratio 27 (6-20) Glucose Level 111 mg/dL (70-99) Calcium Level 7.5 mg/dL (8.5-10.1) Total Bilirubin 0.4 mg/dL (0.2-1.0) Aspartate Amino Transf (AST/SGOT) 23 U/L (15-37) Alanine Aminotransferase (ALT/SGPT) 47 U/L (14-59) Alkaline Phosphatase 48 U/L (46-116) Total Protein 6.4 g/dL (6.4-8.2) Albumin 3.0 g/dL (3.4-5.0) Albumin/Globulin Ratio 0.9 (1.0-1.7) Objective Assessment pt seen, consult dictated Plan Plan of Care / CALEB PARKER MD May 17, 2020 08:03
[2020-05-17] MEDS: OMEGA-3 FATTY ACIDS/FISH OIL 1,000 MG CAPSULE. PO SCH (08:21)
[2020-05-17] MEDS: ASPIRIN ENTERIC COATED 81 MG TABLET.DR. PO SCH (08:21)
[2020-05-17] MEDS: GABAPENTIN 300 MG CAPSULE. PO SCH ×3 (08:24→21:38)
[2020-05-17] MEDS: FOLIC ACID 1 MG TABLET. PO SCH (08:26)
[2020-05-17] MEDS: PARoxetine 20 MG TABLET PO SCH (08:26)
[2020-05-17] MEDS: CETIRIZINE HCL 10 MG TABLET. PO SCH (08:26)
[2020-05-17] MEDS: PANTOPRAZOLE 40 MG TABLET.DR. PO SCH (08:26)
[2020-05-17] MEDS: TOPIRAMATE 25 MG TABLET. PO SCH ×2 (08:27→21:38)
[2020-05-17] MEDS: ENOXAPARIN 40 MG/0.4 ML SYRINGE. SQ SCH ×2 (08:27→21:38)
[2020-05-17] MEDS: DICLOFENAC SODIUM 1% TOPICAL GEL 100GM TUBE. TP SCH ×5 (08:28→21:00)
[2020-05-17] MEDS: LIDOCAINE (700MG/PATCH) PATCH. TP SCH ×2 (08:28→09:00)
[2020-05-17] MEDS: HYDROcodone/APAP 10/325 1 TAB TABLET PO PRN ×2 (10:07→21:58)
--- NOTE | 2020-05-17 10:11 | PDOC ---
PULMONARY PROGRESS NOTES DATE: 05/17/20 TIME: 10:07 Subjective Pt. remains on 4 liters N/C afebrile no increased SOA or cough Vitals Vital Signs Date Time Temp Pulse Resp B/P (MAP) Pulse Ox O2 Delivery O2 Flow Rate FiO2 05/17/20 07:00 97.8 65 18 165/76 (105) 95 Nasal Cannula 2.0 97.8 ROS: No Nausea, No Chest Pain, No Abdominal Pain, No Increase Cough General: Alert Lungs: Clear Cardiovascular: S1, S2 Abdomen: Soft Neuro Exam: Alert Extremities: No Edema Skin: Warm, Dry Labs Laboratory Tests Test 05/16/20 11:57 05/16/20 17:15 05/17/20 05:40 05/17/20 07:26 Glucose (Fingerstick) 180 mg/dL (70-99) 175 mg/dL (70-99) 110 mg/dL (70-99) White Blood Count 6.2 x10^3/uL (4.0-11.0) Red Blood Count 4.39 x10^6/uL (3.50-5.40) Hemoglobin 13.8 g/dL (12.0-15.5) Hematocrit 42.4 % (36.0-47.0) Mean Corpuscular Volume 97 fL (79-100) Mean Corpuscular Hemoglobin 32 pg (25-35) Mean Corpuscular Hemoglobin Concent 33 g/dL (31-37) Red Cell Distribution Width 15.8 % (11.5-14.5) Platelet Count 144 x10^3/uL (140-400) Neutrophils (%) (Auto) 80 % (31-73) Lymphocytes (%) (Auto) 16 % (24-48) Monocytes (%) (Auto) 4 % (0-9) Eosinophils (%) (Auto) 0 % (0-3) Basophils (%) (Auto) 0 % (0-3) Neutrophils # (Auto) 5.0 x10^3/uL (1.8-7.7) Lymphocytes # (Auto) 1.0 x10^3/uL (1.0-4.8) Monocytes # (Auto) 0.2 x10^3/uL (0.0-1.1) Eosinophils # (Auto) 0.0 x10^3/uL (0.0-0.7) Basophils # (Auto) 0.0 x10^3/uL (0.0-0.2) Sodium Level 145 mmol/L (136-145) Potassium Level 3.9 mmol/L (3.5-5.1) Chloride Level 112 mmol/L (98-107) Carbon Dioxide Level 27 mmol/L (21-32) Anion Gap 6 (6-14) Blood Urea Nitrogen 24 mg/dL (7-20) Creatinine 0.9 mg/dL (0.6-1.0) Estimated GFR (Cockcroft-Gault) 64.5 BUN/Creatinine Ratio 27 (6-20) Glucose Level 111 mg/dL (70-99) Calcium Level 7.5 mg/dL (8.5-10.1) Total Bilirubin 0.4 mg/dL (0.2-1.0) Aspartate Amino Transf (AST/SGOT) 23 U/L (15-37) Alanine Aminotransferase (ALT/SGPT) 47 U/L (14-59) Alkaline Phosphatase 48 U/L (46-116) Total Protein 6.4 g/dL (6.4-8.2) Albumin 3.0 g/dL (3.4-5.0) Albumin/Globulin Ratio 0.9 (1.0-1.7) Laboratory Tests Test 05/16/20 11:57 05/16/20 17:15 05/17/20 05:40 05/17/20 07:26 Glucose (Fingerstick) 180 mg/dL (70-99) 175 mg/dL (70-99) 110 mg/dL (70-99) White Blood Count 6.2 x10^3/uL (4.0-11.0) Red Blood Count 4.39 x10^6/uL (3.50-5.40) Hemoglobin 13.8 g/dL (12.0-15.5) Hematocrit 42.4 % (36.0-47.0) Mean Corpuscular Volume 97 fL (79-100) Mean Corpuscular Hemoglobin 32 pg (25-35) Mean Corpuscular Hemoglobin Concent 33 g/dL (31-37) Red Cell Distribution Width 15.8 % (11.5-14.5) Platelet Count 144 x10^3/uL (140-400) Neutrophils (%) (Auto) 80 % (31-73) Lymphocytes (%) (Auto) 16 % (24-48) Monocytes (%) (Auto) 4 % (0-9) Eosinophils (%) (Auto) 0 % (0-3) Basophils (%) (Auto) 0 % (0-3) Neutrophils # (Auto) 5.0 x10^3/uL (1.8-7.7) Lymphocytes # (Auto) 1.0 x10^3/uL (1.0-4.8) Monocytes # (Auto) 0.2 x10^3/uL (0.0-1.1) Eosinophils # (Auto) 0.0 x10^3/uL (0.0-0.7) Basophils # (Auto) 0.0 x10^3/uL (0.0-0.2) Sodium Level 145 mmol/L (136-145) Potassium Level 3.9 mmol/L (3.5-5.1) Chloride Level 112 mmol/L (98-107) Carbon Dioxide Level 27 mmol/L (21-32) Anion Gap 6 (6-14) Blood Urea Nitrogen 24 mg/dL (7-20) Creatinine 0.9 mg/dL (0.6-1.0) Estimated GFR (Cockcroft-Gault) 64.5 BUN/Creatinine Ratio 27 (6-20) Glucose Level 111 mg/dL (70-99) Calcium Level 7.5 mg/dL (8.5-10.1) Total Bilirubin 0.4 mg/dL (0.2-1.0) Aspartate Amino Transf (AST/SGOT) 23 U/L (15-37) Alanine Aminotransferase (ALT/SGPT) 47 U/L (14-59) Alkaline Phosphatase 48 U/L (46-116) Total Protein 6.4 g/dL (6.4-8.2) Albumin 3.0 g/dL (3.4-5.0) Albumin/Globulin Ratio 0.9 (1.0-1.7) Medications Active Scripts Medications Dose Route/Sig Max Daily Dose Days Date Category Dose Instructions Topiramate 50 Mg Tablet 1 Tab PO BID 30 05/14/20 Reported Percocet 10-325 Mg Tablet (Oxycodone/Acetaminophen) 1 Each Tablet 1 Tab PO PRN BID PRN MDD 2 Tablet(s) 5 05/14/20 Reported Omeprazole 40 Mg Capsule. 1 Cap PO DAILY 05/14/20 Reported Methotrexate (Methotrexate Sodium) 2.5 Mg Tablet 6 Tab PO QSU 05/14/20 Reported Lidocaine PATCH (Lidocaine) 1 Each Adh..patch 1 Each TP DAILY 05/14/20 Reported REMOVE AFTER 12 HOURS Gabapentin 600 Mg Tablet 600 Mg PO TID 05/14/20 Reported Folic Acid 0.8 Mg Capsule 1 Cap PO DAILY 30 05/14/20 Reported Fish Oil 1,000 Mg Softgel ([place]-3 Fatty Acids/Fish Oil) 1 Each Capsule 2 Cap PO DAILY 30 05/14/20 Reported Voltaren (Diclofenac Sodium) 100 Gm Gel..gram. 1 Gm TP QID 30 05/14/20 Reported apply to affected area(s) Claritin (Loratadine) 10 Mg Tablet 1 Tab PO DAILY 30 05/14/20 Reported Symbicort 160-4.5 Mcg Inhaler (Budesonide/Formoterol Fumarate) 10.2 Gm Hfa.aer.ad 2 Puff IH BID 05/14/20 Reported Duoneb 0.5-3(2.5) Mg/3 Ml (Albuterol/Ipratropium) 3 Ml Ampul.neb 3 Ml NEB QID 05/14/20 Reported Benzonatate 100 Mg Capsule 100 Mg PO TID PRN 05/14/20 Reported Aspirin Ec (Aspirin) 81 Mg Tablet. 81 Mg PO DAILY 05/14/20 Reported Actemra Actpen (Tocilizumab) 162 Mg/0.9 Ml Pen.injctr 162 Mg SQ QSU 05/14/20 Reported Proair Hfa (Albuterol Sulfate) 8.5 Gm Hfa.aer.ad 2 Puff IH PRN Q4-6HRS PRN 21 05/14/20 Reported [Diphenoxylate Hcl/Atropine] 1 TAB Tablet 1 Tab PO PRN QID PRN 05/21/14 Rx Singulair Tablet (Montelukast Sodium) 10 Mg Tablet 10 Mg PO HS 05/02/13 Reported [Deltasone] 05/02/13 Reported [Folvite] DAILY 05/02/13 Reported Mucinex (Guaifenesin) 600 Mg Tablet.er 600 Mg PO BID 05/02/13 Reported Proventil Hfa Inhaler (Albuterol Sulfate) 6.7 Gm Hfa.aer.ad 6.7 Gm IH Q4HRS 05/02/13 Reported Percocet 5-325 Mg Tablet (Oxycodone/Acetaminophen) 1 Each Tablet 1 Each PO Q4HRS 05/02/13 Reported [Lioresol] TID 05/02/13 Reported Paxil (Paroxetine Hcl) 20 Mg Tablet 20 Mg PO DAILY 05/02/13 Reported Calcium + Vitamin D3 Caplet (Calcium Carb & Cit/Vitamin D3) 1 Each Tablet.er 1 Each PO 05/02/13 Reported Comments CTA chest Impression: 1. No definite pulmonary embolus although evaluation for distal pulmonary emboli is degraded by respiratory motion. 2. Right upper lobe spiculated mass, concerning for primary malignancy. Recommend PET/CT and/or biopsy to further evaluate. 3. Right hilar lymphadenopathy. 4. Right lower lobe solid and groundglass nodule, may represent metastasis. Recommend attention on follow-up. 5. Interstitial thickening with multifocal groundglass opacities most prominent within the lung bases, may relate to pulmonary edema or infection although a component of chronic interstitial changes is possible. 6. Moderate pulmonary emphysema. Impression . 1. Acute hypoxic respiratory failure secondary to acute exacerbation of chronic obstructive pulmonary disease and viral interstitial pneumonia./ COVID-19 positive 2. Less likely congestive heart failure. The proBNP is normal. 3. Abnormal CT chest with a spiculated 2.5 cm mass in the right upper lobe, mildly enlarged right hilar lymph node. She also has a partly solid and partly ground glass nodule 1.5 cm in the right lower lobe. This is suspicious for underlying malignancy. She did have a weight loss of 16 pounds, but it was intentional. 4. Leukopenia, could be viral infection. due to COVID-19. Plan . Continue present oxygen, keep saturation 92% and above. CTA chest reviewed no PE CXR in am Continue IV steroids Continue remdesivir for full 5 day course Continue nebulizer treatment Continue empiric antibiotics CT-guided biopsy---will do as OP in 1-2 weeks DVT/GI PPX - Lovenox dose reduced to 40 mg subcutaneous daily. D/W YANE RIOS MD May 17, 2020 10:11
--- NOTE | 2020-05-17 10:47 | PDOC ---
PROGRESS NOTES Date of Service: DATE: 05/17/20 TIME: 10:45 Subjective Subjective cough Objective Objective Vital Signs Date Time Temp Pulse Resp B/P (MAP) Pulse Ox O2 Delivery O2 Flow Rate FiO2 05/17/20 10:07 19 95 Nasal Cannula 3.0 05/17/20 07:00 97.8 65 165/76 (105) 97.8 Intake and Output 05/17/20 07:00 Intake Total 210 ml Output Total 0 ml Balance 210 ml Intake Oral 210 ml Output Urine Total 0 ml # Voids 1 Physical Exam Abdomen: Soft Heart: Normal S1, Normal S2 Extremities: No clubbing General: Alert HEENT: Atraumatic Lungs: Other (wheezing) MUSCULOSKELETAL: No swelling Neck: No JVD Neuro: Normal speech Psych/Mental Status: Mental status NL Skin: No breakdown Diagnosis Problem List Problems Medical Problems: (1) COPD exacerbation Status: Acute (2) Hypoxia Status: Acute (3) Lung mass Status: Acute (4) Pneumonia Status: Acute Assessment Assessment 1. Lung infiltrates in the bases. Covid Pneumonia infection. 2. Right lung mass with adenopathy as well as another mass in the lower right lung, rule out metastasis. 3. Rheumatoid arthritis, on immunosuppressants, methotrexate and Actemra injections. 4. Chronic smoker for more than 30 years. 5. Fibromyalgia. PLAN: covid positive Remdesivir started yesterday 05/16/20 IV dexa methasone tid Medium dose Loveneox bid IV reocephin. At this time, the patient is admitted to the hospital. Broad-spectrum antibiotics after blood and sputum cultures. Started on Rocephin and Zithromax. Dexamethasone was added for bronchospasm. Also, nose swab for COVID. Also, pulmonary consultation. DVT prophylaxis with Lovenox. COVID-19 pneumonia. Patient is on IV Rocephin, Zithromax and IV Decadron. Consider treatment with remdesivir Consult Dr. Melvin Rajan for infectious disease evaluation and management. Recheck labs in a.m. Lung biopsy at a later date once COVID-19 infection is better. Discussed with Dr. Seth. Monitor blood sugar. The results discussed with the patient. Patient's will also get tested for COVID-19 today. Plan Plan of Care Problems Medical Problems: (1) COPD exacerbation Status: Acute (2) Hypoxia Status: Acute (3) Lung mass Status: Acute (4) Pneumonia Status: Acute Comment Review of Relevant I have reviewed the following items edgardo (where applicable) has been applied. Labs Laboratory Tests Test 05/16/20 11:57 05/16/20 17:15 05/17/20 05:40 05/17/20 07:26 Glucose (Fingerstick) 180 mg/dL (70-99) 175 mg/dL (70-99) 110 mg/dL (70-99) White Blood Count 6.2 x10^3/uL (4.0-11.0) Red Blood Count 4.39 x10^6/uL (3.50-5.40) Hemoglobin 13.8 g/dL (12.0-15.5) Hematocrit 42.4 % (36.0-47.0) Mean Corpuscular Volume 97 fL (79-100) Mean Corpuscular Hemoglobin 32 pg (25-35) Mean Corpuscular Hemoglobin Concent 33 g/dL (31-37) Red Cell Distribution Width 15.8 % (11.5-14.5) Platelet Count 144 x10^3/uL (140-400) Neutrophils (%) (Auto) 80 % (31-73) Lymphocytes (%) (Auto) 16 % (24-48) Monocytes (%) (Auto) 4 % (0-9) Eosinophils (%) (Auto) 0 % (0-3) Basophils (%) (Auto) 0 % (0-3) Neutrophils # (Auto) 5.0 x10^3/uL (1.8-7.7) Lymphocytes # (Auto) 1.0 x10^3/uL (1.0-4.8) Monocytes # (Auto) 0.2 x10^3/uL (0.0-1.1) Eosinophils # (Auto) 0.0 x10^3/uL (0.0-0.7) Basophils # (Auto) 0.0 x10^3/uL (0.0-0.2) Sodium Level 145 mmol/L (136-145) Potassium Level 3.9 mmol/L (3.5-5.1) Chloride Level 112 mmol/L (98-107) Carbon Dioxide Level 27 mmol/L (21-32) Anion Gap 6 (6-14) Blood Urea Nitrogen 24 mg/dL (7-20) Creatinine 0.9 mg/dL (0.6-1.0) Estimated GFR (Cockcroft-Gault) 64.5 BUN/Creatinine Ratio 27 (6-20) Glucose Level 111 mg/dL (70-99) Calcium Level 7.5 mg/dL (8.5-10.1) Total Bilirubin 0.4 mg/dL (0.2-1.0) Aspartate Amino Transf (AST/SGOT) 23 U/L (15-37) Alanine Aminotransferase (ALT/SGPT) 47 U/L (14-59) Alkaline Phosphatase 48 U/L (46-116) Total Protein 6.4 g/dL (6.4-8.2) Albumin 3.0 g/dL (3.4-5.0) Albumin/Globulin Ratio 0.9 (1.0-1.7) Medications Current Medications Dexamethasone Sodium Phosphate (Decadron) 4 mg Q8HRS IVP ; Start 05/17/20 at 14:00 Enoxaparin Sodium (Lovenox 40mg Syringe) 40 mg BID SQ ; Start 05/17/20 at 21:00 Insulin Human Lispro (HumaLOG) 0-8 UNITS BIDBFRMEAL SQ ; Start 05/16/20 at 16:30 Remdesivir 100 mg/ Sodium Chloride 230 ml @ 460 mls/hr Q24H IV ; Start 05/17/20 at 12:00; Stop 05/20/20 at 12:29 Remdesivir 200 mg/ Sodium Chloride 210 ml @ 210 mls/hr 1X ONCE IV Last administered on 05/16/20at 13:04; Start 05/16/20 at 12:00; Stop 05/16/20 at 12:59; Status DC Vitals/I & O Vital Sign - Last 24 Hours 05/16/20 05/16/20 05/16/20 05/16/20 11:00 15:00 19:55 20:00 Temp 98.1 98.1 98.4 98.1 98.1 98.4 Pulse 72 60 60 Resp 17 17 18 B/P (MAP) 113/53 (73) 132/61 (84) 146/67 (93) Pulse Ox 92 97 96 O2 Delivery Nasal Cannula Nasal Cannula Nasal Cannula Nasal Cannula O2 Flow Rate 2.0 2.0 2.0 2.0 4/3/05/17/20 05/17/20 05/17/20 23:38 03:24 07:00 10:07 Temp 98.0 98.5 97.8 98.0 98.5 97.8 Pulse 64 63 65 Resp 18 16 18 19 B/P (MAP) 151/70 (97) 143/67 (92) 165/76 (105) Pulse Ox 97 95 95 95 O2 Delivery Nasal Cannula Nasal Cannula Nasal Cannula Nasal Cannula O2 Flow Rate 2.0 2.0 2.0 3.0 Intake and Output 05/16/20 05/16/20 05/17/20 15:00 23:00 07:00 Intake Total 210 ml Output Total 0 ml Balance 210 ml Justifications for Admission Other Justification MEGHAN REECE MD May 17, 2020 10:47
[2020-05-17 11:00] VITALS: BP 117/61
[2020-05-17] MEDS: REMDESIVIR 100mg in NORMAL SALINE 250ML X 4 DAYS IV SCH (12:46)
[2020-05-17 15:00] VITALS: BP 136/63
[2020-05-17 20:26] VITALS: BP 135/63
[2020-05-17] MEDS: PATCH REMOVAL. MC SCH (21:00)
[2020-05-17] MEDS: MONTELUKAST SODIUM 10 MG TABLET. PO SCH (21:37)
[2020-05-17] MEDS: cefTRIAXone IV Push 1 GM VIAL. IVP SCH (21:37)
--- NOTE | 2020-05-17 21:50 | CONS ---
DATE OF CONSULTATION: 05/17/2020 REQUESTING PHYSICIAN: Dr. Feliz Catalan. REASON FOR CONSULTATION: COVID positive. HISTORY OF PRESENT ILLNESS: This is a 55-year-old female who was admitted with shortness of breath. The patient has had cough and shortness of breath, produced some sputum with even blood in it off and on, weight loss, although she was trying to lose weight. The patient was noted to have pulmonary mass and biopsy has been planned, although COVID was checked and it is positive. The patient is feeling comfortable on 3 liters right now with 95% oxygen saturation. No nausea, vomiting, diarrhea. Denies any headache, visual symptoms, chest pain, abdominal pain, urinary symptoms or bowel symptoms. PAST MEDICAL HISTORY: Positive for rheumatoid arthritis, on methotrexate, hyperlipidemia, peripheral neuropathy, gastroesophageal reflux disease, fibromyalgia, has had hip joint replacement done in the past, history of depression. SOCIAL HISTORY: Negative for smoking, alcohol, or illicit drug use. ALLERGIES: LISTED ALLERGIC TO FUROSEMIDE. CURRENT MEDICATIONS: Reviewed. The patient is on remdesivir, azithromycin and ceftriaxone. REVIEW OF SYSTEMS: As per HPI, all other systems reviewed are negative. PHYSICAL EXAMINATION: GENERAL: Alert, oriented female, not in distress. VITAL SIGNS: Stable. Afebrile. HEENT: NAD. NECK: Supple. No JVP. No lymphadenopathy. LUNGS: Clear. HEART: S1, S2 regular. ABDOMEN: Soft, nontender. No organomegaly. EXTREMITIES: No edema or cyanosis. SKIN: Unremarkable. NEUROLOGIC: The patient is alert, awake and appropriate. No focal neurologic deficit. LABORATORY DATA: White count when she came in was 2.9, it is improved to 6.2, platelets are normal. BUN and creatinine is 24 and 0.9. Her COVID is positive. Chest x-ray and subsequent CT showed right upper lobe spiculated mass with right hilar lymphadenopathy, right lower lobe solid and ground-glass nodule, interstitial thickening with multifocal ground-glass opacity. IMPRESSION: 1. COVID-19 positive. 2. Pulmonary spiculated mass with hilar lymphadenopathy, concerning for malignancy. Biopsy has been pending. 3. Rheumatoid arthritis. 4. Obesity. 5. Chronic obstructive pulmonary disease. 6. Fibromyalgia. RECOMMENDATIONS: Continue current management, soon to be able to discharge. We will discontinue azithromycin. Rocephin can be switched over to oral or discontinued and if the oxygen saturation is normal on room air, then the patient can be discharged to have a biopsy later on as that has been planned. Thank you very much, Dr. Nino, for giving me the opportunity to participate in this patient's care. CALEB PARKER MD DR: LORENA/nandini JOB#: [id number] / [id number]
[2020-05-17 23:52] VITALS: BP 185/79
[2020-05-18 03:09] VITALS: BP 142/69
[2020-05-18] MEDS: DEXAMETHASONE SOD PHOS 4 MG/ML VIAL IVP SCH ×3 (06:07→22:00)
[2020-05-18 07:00] VITALS: BP 131/59
[2020-05-18] MEDS: INSULIN LISPRO 300 UNITS/3 ML VIAL. SQ SCH ×2 (07:30→16:30)
[2020-05-18] MEDS: OMEGA-3 FATTY ACIDS/FISH OIL 1,000 MG CAPSULE. PO SCH (08:08)
[2020-05-18] MEDS: PARoxetine 20 MG TABLET PO SCH (08:09)
[2020-05-18] MEDS: PANTOPRAZOLE 40 MG TABLET.DR. PO SCH (08:09)
[2020-05-18] MEDS: FOLIC ACID 1 MG TABLET. PO SCH (08:09)
[2020-05-18] MEDS: ASPIRIN ENTERIC COATED 81 MG TABLET.DR. PO SCH (08:09)
[2020-05-18] MEDS: TOPIRAMATE 25 MG TABLET. PO SCH ×2 (08:09→20:33)
[2020-05-18] MEDS: GABAPENTIN 300 MG CAPSULE. PO SCH ×3 (08:10→20:33)
[2020-05-18] MEDS: CETIRIZINE HCL 10 MG TABLET. PO SCH (08:10)
[2020-05-18] MEDS: ENOXAPARIN 40 MG/0.4 ML SYRINGE. SQ SCH ×2 (08:10→20:42)
--- NOTE | 2020-05-18 08:23 | RAD ---
XR CHEST 1V INDICATION: hypoxia / Spl. Instructions: / History: . COMPARISON STUDY: 05/14/2020. FINDINGS: Lungs: Normal lung volume. Improving bibasilar opacities. Pleura: No pleural effusion or pneumothorax. Heart and Mediastinum: Stable cardiomediastinal silhouette and great vessels. Bones and Soft Tissues: Stable regional skeleton and soft tissues. IMPRESSION: Improving bibasilar heterogeneous opacities. Electronically signed by: Maxime Pendleton MD (05/18/2020 8:21 AM) [id number]
--- NOTE | 2020-05-18 08:57 | PDOC ---
PROGRESS NOTES Date of Service: DATE: 05/18/20 TIME: 08:55 Subjective Subjective fells better today Objective Objective Vital Signs Date Time Temp Pulse Resp B/P (MAP) Pulse Ox O2 Delivery O2 Flow Rate FiO2 05/18/20 07:00 98.1 60 17 131/59 (83) 96 Room Air 98.1 05/17/20 20:00 2.0 Intake and Output 05/18/20 07:00 Intake Total 360 ml Balance 360 ml Intake Oral 360 ml # Voids 2 # Bowel Movements 1 Physical Exam Abdomen: Soft Heart: Normal S1, Normal S2 Extremities: No clubbing General: Alert HEENT: Atraumatic Lungs: Other (wheezing) MUSCULOSKELETAL: No swelling Neck: No JVD Neuro: Normal speech Psych/Mental Status: Mental status NL Skin: No breakdown Diagnosis Problem List Problems Medical Problems: (1) COPD exacerbation Status: Acute (2) Hypoxia Status: Acute (3) Lung mass Status: Acute (4) Pneumonia Status: Acute Assessment Assessment 1. Lung infiltrates in the bases. Covid Pneumonia infection. 2. Right lung mass with adenopathy as well as another mass in the lower right lung, rule out metastasis. 3. Rheumatoid arthritis, on immunosuppressants, methotrexate and Actemra injections. 4. Chronic smoker for more than 30 years. 5. Fibromyalgia. PLAN: cxr improving day #3 remdicivr dexametahsone tid lovenox bid. conrinue to improve covid positive Remdesivir started yesterday 05/16/20 IV dexa methasone tid Medium dose Loveneox bid IV reocephin. At this time, the patient is admitted to the hospital. Broad-spectrum antibiotics after blood and sputum cultures. Started on Rocephin and Zithromax. Dexamethasone was added for bronchospasm. Also, nose swab for COVID. Also, pulmonary consultation. DVT prophylaxis with Lovenox. COVID-19 pneumonia. Patient is on IV Rocephin, Zithromax and IV Decadron. Consider treatment with remdesivir Consult Dr. Melvin Rajan for infectious disease evaluation and management. Recheck labs in a.m. Lung biopsy at a later date once COVID-19 infection is better. Discussed with Dr. Seth. Monitor blood sugar. The results discussed with the patient. Patient's will also get tested for COVID-19 today. Plan Plan of Care Problems Medical Problems: (1) COPD exacerbation Status: Acute (2) Hypoxia Status: Acute (3) Lung mass Status: Acute (4) Pneumonia Status: Acute Comment Review of Relevant I have reviewed the following items edgardo (where applicable) has been applied. Labs Laboratory Tests Test 05/17/20 11:06 05/17/20 17:23 05/17/20 20:54 05/18/20 07:59 Glucose (Fingerstick) 227 mg/dL (70-99) 137 mg/dL (70-99) 182 mg/dL (70-99) 121 mg/dL (70-99) Medications Current Medications Dexamethasone Sodium Phosphate (Decadron) 4 mg Q8HRS IVP Last administered on 05/18/20at 06:07; Start 05/17/20 at 14:00 Enoxaparin Sodium (Lovenox 40mg Syringe) 40 mg BID SQ Last administered on 05/18/20at 08:10; Start 05/17/20 at 21:00 Remdesivir 100 mg/ Sodium Chloride 230 ml @ 460 mls/hr Q24H IV Last administered on 05/17/20at 12:46; Start 05/17/20 at 12:00; Stop 05/20/20 at 12:29 Vitals/I & O Vital Sign - Last 24 Hours 05/17/20 05/17/20 05/17/20 05/17/20 10:07 11:00 11:07 15:00 Temp 97.8 98.4 97.8 98.4 Pulse 80 75 Resp 19 18 19 18 B/P (MAP) 117/61 (79) 136/63 (87) Pulse Ox 95 93 93 92 O2 Delivery Nasal Cannula Room Air Room Air Nasal Cannula O2 Flow Rate 3.0 2.0 05/17/20 05/17/20 05/17/20 05/17/20 20:00 20:26 21:58 22:58 Temp 98.7 98.7 Pulse 67 B/P (MAP) 135/63 (87) O2 Delivery Room Air Room Air Room Air O2 Flow Rate 2.0 05/17/20 05/18/20 05/18/20 23:52 03:09 07:00 Temp 98.0 98.3 98.1 98.0 98.3 98.1 Pulse 62 56 60 Resp 18 18 17 B/P (MAP) 185/79 (114) 142/69 (93) 131/59 (83) Pulse Ox 96 96 O2 Delivery Room Air Room Air Room Air Intake and Output 05/17/20 05/17/20 05/18/20 15:00 23:00 07:00 Intake Total 100 ml 260 ml Balance 100 ml 260 ml Justifications for Admission Other Justification MEGHAN REECE MD May 18, 2020 08:57
[2020-05-18] MEDS: LIDOCAINE (700MG/PATCH) PATCH. TP SCH (09:00)
[2020-05-18] MEDS: DICLOFENAC SODIUM 1% TOPICAL GEL 100GM TUBE. TP SCH ×4 (09:00→20:42)
[2020-05-18] MEDS: HYDROcodone/APAP 10/325 1 TAB TABLET PO PRN ×2 (09:09→17:04)
--- NOTE | 2020-05-18 09:18 | PDOC ---
Infectious Disease Note Subjective Subjective pt is feeling good, off o2, cough with bloody sputum present ROS ROS no n/v/d/ Vital Sign Vital Signs Vital Signs Date Time Temp Pulse Resp B/P (MAP) Pulse Ox O2 Delivery O2 Flow Rate FiO2 05/18/20 07:00 98.1 60 17 131/59 (83) 96 Room Air 98.1 05/17/20 20:00 2.0 Physical Exam PHYSICAL EXAM GENERAL: Alert, oriented female, not in distress. VITAL SIGNS: Stable. Afebrile. HEENT: NAD. NECK: Supple. No JVP. No lymphadenopathy. LUNGS: Clear. HEART: S1, S2 regular. ABDOMEN: Soft, nontender. No organomegaly. EXTREMITIES: No edema or cyanosis. SKIN: Unremarkable. NEUROLOGIC: The patient is alert, awake and appropriate. No focal neurologic deficit. Labs Lab Laboratory Tests Test 05/17/20 11:06 05/17/20 17:23 05/17/20 20:54 05/18/20 07:59 Glucose (Fingerstick) 227 mg/dL (70-99) 137 mg/dL (70-99) 182 mg/dL (70-99) 121 mg/dL (70-99) Objective Assessment IMPRESSION: 1. COVID-19 positive. 2. Pulmonary spiculated mass with hilar lymphadenopathy, concerning for malignancy. Biopsy has been pending. 3. Rheumatoid arthritis. 4. Obesity. 5. Chronic obstructive pulmonary disease. 6. Fibromyalgia. Plan Plan of Care augmentin ok to d/c biopsy later planned CALEB PARKER MD May 18, 2020 09:18
--- NOTE | 2020-05-18 10:25 | NUR ---
SW following for discharge planning. Spoke with RN and reviewed chart. COVID result came back positive. Pt on IV Remdesivir until 05/20. Pt advanced to room air and abx change from IV to oral per ID. Discharge plan is home, self-care. SW following as needed.
[2020-05-18 11:00] VITALS: BP 116/57
[2020-05-18] MEDS: REMDESIVIR 100mg in NORMAL SALINE 250ML X 4 DAYS IV SCH (11:59)
--- NOTE | 2020-05-18 12:11 | PDOC ---
PULMONARY PROGRESS NOTES DATE: 05/18/20 TIME: 12:10 Subjective Pt. remains on 4 liters N/C afebrile no increased SOA or cough Vitals Vital Signs Date Time Temp Pulse Resp B/P (MAP) Pulse Ox O2 Delivery O2 Flow Rate FiO2 05/18/20 11:00 96.7 67 20 116/57 (76) 95 Room Air 96.7 05/17/20 20:00 2.0 ROS: No Nausea, No Chest Pain, No Abdominal Pain, No Increase Cough General: Alert Lungs: Clear Cardiovascular: S1, S2 Abdomen: Soft Neuro Exam: Alert Extremities: No Edema Skin: Warm, Dry Labs Laboratory Tests Test 05/16/20 17:15 05/17/20 05:40 05/17/20 07:26 05/17/20 11:06 Glucose (Fingerstick) 175 mg/dL (70-99) 110 mg/dL (70-99) 227 mg/dL (70-99) White Blood Count 6.2 x10^3/uL (4.0-11.0) Red Blood Count 4.39 x10^6/uL (3.50-5.40) Hemoglobin 13.8 g/dL (12.0-15.5) Hematocrit 42.4 % (36.0-47.0) Mean Corpuscular Volume 97 fL (79-100) Mean Corpuscular Hemoglobin 32 pg (25-35) Mean Corpuscular Hemoglobin Concent 33 g/dL (31-37) Red Cell Distribution Width 15.8 % (11.5-14.5) Platelet Count 144 x10^3/uL (140-400) Neutrophils (%) (Auto) 80 % (31-73) Lymphocytes (%) (Auto) 16 % (24-48) Monocytes (%) (Auto) 4 % (0-9) Eosinophils (%) (Auto) 0 % (0-3) Basophils (%) (Auto) 0 % (0-3) Neutrophils # (Auto) 5.0 x10^3/uL (1.8-7.7) Lymphocytes # (Auto) 1.0 x10^3/uL (1.0-4.8) Monocytes # (Auto) 0.2 x10^3/uL (0.0-1.1) Eosinophils # (Auto) 0.0 x10^3/uL (0.0-0.7) Basophils # (Auto) 0.0 x10^3/uL (0.0-0.2) Sodium Level 145 mmol/L (136-145) Potassium Level 3.9 mmol/L (3.5-5.1) Chloride Level 112 mmol/L (98-107) Carbon Dioxide Level 27 mmol/L (21-32) Anion Gap 6 (6-14) Blood Urea Nitrogen 24 mg/dL (7-20) Creatinine 0.9 mg/dL (0.6-1.0) Estimated GFR (Cockcroft-Gault) 64.5 BUN/Creatinine Ratio 27 (6-20) Glucose Level 111 mg/dL (70-99) Calcium Level 7.5 mg/dL (8.5-10.1) Total Bilirubin 0.4 mg/dL (0.2-1.0) Aspartate Amino Transf (AST/SGOT) 23 U/L (15-37) Alanine Aminotransferase (ALT/SGPT) 47 U/L (14-59) Alkaline Phosphatase 48 U/L (46-116) Total Protein 6.4 g/dL (6.4-8.2) Albumin 3.0 g/dL (3.4-5.0) Albumin/Globulin Ratio 0.9 (1.0-1.7) Test 05/17/20 17:23 05/17/20 20:54 05/18/20 07:59 05/18/20 11:08 Glucose (Fingerstick) 137 mg/dL (70-99) 182 mg/dL (70-99) 121 mg/dL (70-99) 195 mg/dL (70-99) Laboratory Tests Test 05/17/20 17:23 05/17/20 20:54 05/18/20 07:59 05/18/20 11:08 Glucose (Fingerstick) 137 mg/dL (70-99) 182 mg/dL (70-99) 121 mg/dL (70-99) 195 mg/dL (70-99) Medications Active Scripts Medications Dose Route/Sig Max Daily Dose Days Date Category Dose Instructions Topiramate 50 Mg Tablet 1 Tab PO BID 30 05/14/20 Reported Percocet 10-325 Mg Tablet (Oxycodone/Acetaminophen) 1 Each Tablet 1 Tab PO PRN BID PRN MDD 2 Tablet(s) 5 05/14/20 Reported Omeprazole 40 Mg Capsule. 1 Cap PO DAILY 05/14/20 Reported Methotrexate (Methotrexate Sodium) 2.5 Mg Tablet 6 Tab PO QSU 05/14/20 Reported Lidocaine PATCH (Lidocaine) 1 Each Adh..patch 1 Each TP DAILY 05/14/20 Reported REMOVE AFTER 12 HOURS Gabapentin 600 Mg Tablet 600 Mg PO TID 05/14/20 Reported Folic Acid 0.8 Mg Capsule 1 Cap PO DAILY 30 05/14/20 Reported Fish Oil 1,000 Mg Softgel ([place]-3 Fatty Acids/Fish Oil) 1 Each Capsule 2 Cap PO DAILY 30 05/14/20 Reported Voltaren (Diclofenac Sodium) 100 Gm Gel..gram. 1 Gm TP QID 30 05/14/20 Reported apply to affected area(s) Claritin (Loratadine) 10 Mg Tablet 1 Tab PO DAILY 30 05/14/20 Reported Symbicort 160-4.5 Mcg Inhaler (Budesonide/Formoterol Fumarate) 10.2 Gm Hfa.aer.ad 2 Puff IH BID 05/14/20 Reported Duoneb 0.5-3(2.5) Mg/3 Ml (Albuterol/Ipratropium) 3 Ml Ampul.neb 3 Ml NEB QID 05/14/20 Reported Benzonatate 100 Mg Capsule 100 Mg PO TID PRN 05/14/20 Reported Aspirin Ec (Aspirin) 81 Mg Tablet. 81 Mg PO DAILY 05/14/20 Reported Actemra Actpen (Tocilizumab) 162 Mg/0.9 Ml Pen.injctr 162 Mg SQ QSU 05/14/20 Reported Proair Hfa (Albuterol Sulfate) 8.5 Gm Hfa.aer.ad 2 Puff IH PRN Q4-6HRS PRN 21 05/14/20 Reported [Diphenoxylate Hcl/Atropine] 1 TAB Tablet 1 Tab PO PRN QID PRN 05/21/14 Rx Singulair Tablet (Montelukast Sodium) 10 Mg Tablet 10 Mg PO HS 05/02/13 Reported [Deltasone] 05/02/13 Reported [Folvite] DAILY 05/02/13 Reported Mucinex (Guaifenesin) 600 Mg Tablet.er 600 Mg PO BID 05/02/13 Reported Proventil Hfa Inhaler (Albuterol Sulfate) 6.7 Gm Hfa.aer.ad 6.7 Gm IH Q4HRS 05/02/13 Reported Percocet 5-325 Mg Tablet (Oxycodone/Acetaminophen) 1 Each Tablet 1 Each PO Q4HRS 05/02/13 Reported [Lioresol] TID 05/02/13 Reported Paxil (Paroxetine Hcl) 20 Mg Tablet 20 Mg PO DAILY 05/02/13 Reported Calcium + Vitamin D3 Caplet (Calcium Carb & Cit/Vitamin D3) 1 Each Tablet.er 1 Each PO 05/02/13 Reported Comments CTA chest Impression: 1. No definite pulmonary embolus although evaluation for distal pulmonary emboli is degraded by respiratory motion. 2. Right upper lobe spiculated mass, concerning for primary malignancy. Recommend PET/CT and/or biopsy to further evaluate. 3. Right hilar lymphadenopathy. 4. Right lower lobe solid and groundglass nodule, may represent metastasis. Recommend attention on follow-up. 5. Interstitial thickening with multifocal groundglass opacities most prominent within the lung bases, may relate to pulmonary edema or infection although a component of chronic interstitial changes is possible. 6. Moderate pulmonary emphysema. Impression . 1. Acute hypoxic respiratory failure secondary to acute exacerbation of chronic obstructive pulmonary disease and viral interstitial pneumonia./ COVID-19 positive 2. Less likely congestive heart failure. The proBNP is normal. 3. Abnormal CT chest with a spiculated 2.5 cm mass in the right upper lobe, mildly enlarged right hilar lymph node. She also has a partly solid and partly ground glass nodule 1.5 cm in the right lower lobe. This is suspicious for underlying malignancy. She did have a weight loss of 16 pounds, but it was intentional. 4. Leukopenia, could be viral infection. due to COVID-19. Plan . Continue present oxygen, keep saturation 92% and above. CTA chest reviewed no PE CXR in am Continue IV steroids Continue remdesivir for full 5 day course Continue nebulizer treatment Continue empiric antibiotics CT-guided biopsy---will do as OP in 1-2 weeks DVT/GI PPX - Lovenox dose reduced to 40 mg subcutaneous daily. D/W YANE RIOS MD May 18, 2020 12:11
[2020-05-18 15:00] VITALS: BP 111/57
[2020-05-18 19:00] VITALS: BP 165/69
[2020-05-18] MEDS: MONTELUKAST SODIUM 10 MG TABLET. PO SCH (20:33)
[2020-05-18] MEDS: AMOXICILLIN/K CLAV 875/125MG TABLET. PO SCH (20:33)
[2020-05-18] MEDS: PATCH REMOVAL. MC SCH (21:00)
[2020-05-18 23:00] VITALS: BP 172/70
[2020-05-19 03:00] VITALS: BP 116/65
[2020-05-19] MEDS: PANTOPRAZOLE 40 MG TABLET.DR. PO SCH ×2 (06:19→09:01)
[2020-05-19] MEDS: DEXAMETHASONE SOD PHOS 4 MG/ML VIAL IVP SCH (06:19)
[2020-05-19 07:00] VITALS: BP 174/81
[2020-05-19] MEDS: INSULIN LISPRO 300 UNITS/3 ML VIAL. SQ SCH ×2 (07:30→16:30)
--- NOTE | 2020-05-19 08:22 | PDOC ---
PULMONARY PROGRESS NOTES DATE: 05/19/20 TIME: 08:22 Subjective Patient feels better, no chest pain no pressure Vitals Vital Signs Date Time Temp Pulse Resp B/P (MAP) Pulse Ox O2 Delivery O2 Flow Rate FiO2 05/19/20 03:00 98.3 57 20 116/65 (82) 96 Room Air 98.3 ROS: No Nausea, No Chest Pain, No Abdominal Pain, No Increase Cough General: Alert Lungs: Clear Cardiovascular: S1, S2 Abdomen: Soft Neuro Exam: Alert Extremities: No Edema Skin: Warm, Dry Labs Laboratory Tests Test 05/17/20 11:06 05/17/20 17:23 05/17/20 20:54 05/18/20 07:59 Glucose (Fingerstick) 227 mg/dL (70-99) 137 mg/dL (70-99) 182 mg/dL (70-99) 121 mg/dL (70-99) Test 05/18/20 11:08 05/18/20 16:56 05/18/20 21:24 05/19/20 07:58 Glucose (Fingerstick) 195 mg/dL (70-99) 158 mg/dL (70-99) 163 mg/dL (70-99) 115 mg/dL (70-99) Laboratory Tests Test 05/18/20 11:08 05/18/20 16:56 05/18/20 21:24 05/19/20 07:58 Glucose (Fingerstick) 195 mg/dL (70-99) 158 mg/dL (70-99) 163 mg/dL (70-99) 115 mg/dL (70-99) Medications Active Scripts Medications Dose Route/Sig Max Daily Dose Days Date Category Dose Instructions Topiramate 50 Mg Tablet 1 Tab PO BID 30 05/14/20 Reported Percocet 10-325 Mg Tablet (Oxycodone/Acetaminophen) 1 Each Tablet 1 Tab PO PRN BID PRN MDD 2 Tablet(s) 5 05/14/20 Reported Omeprazole 40 Mg Capsule. 1 Cap PO DAILY 05/14/20 Reported Methotrexate (Methotrexate Sodium) 2.5 Mg Tablet 6 Tab PO QSU 05/14/20 Reported Lidocaine PATCH (Lidocaine) 1 Each Adh..patch 1 Each TP DAILY 05/14/20 Reported REMOVE AFTER 12 HOURS Gabapentin 600 Mg Tablet 600 Mg PO TID 05/14/20 Reported Folic Acid 0.8 Mg Capsule 1 Cap PO DAILY 30 05/14/20 Reported Fish Oil 1,000 Mg Softgel ([place]-3 Fatty Acids/Fish Oil) 1 Each Capsule 2 Cap PO DAILY 30 05/14/20 Reported Voltaren (Diclofenac Sodium) 100 Gm Gel..gram. 1 Gm TP QID 30 05/14/20 Reported apply to affected area(s) Claritin (Loratadine) 10 Mg Tablet 1 Tab PO DAILY 30 05/14/20 Reported Symbicort 160-4.5 Mcg Inhaler (Budesonide/Formoterol Fumarate) 10.2 Gm Hfa.aer.ad 2 Puff IH BID 05/14/20 Reported Duoneb 0.5-3(2.5) Mg/3 Ml (Albuterol/Ipratropium) 3 Ml Ampul.neb 3 Ml NEB QID 05/14/20 Reported Benzonatate 100 Mg Capsule 100 Mg PO TID PRN 05/14/20 Reported Aspirin Ec (Aspirin) 81 Mg Tablet.dr 81 Mg PO DAILY 05/14/20 Reported Actemra Actpen (Tocilizumab) 162 Mg/0.9 Ml Pen.injctr 162 Mg SQ QSU 05/14/20 Reported Proair Hfa (Albuterol Sulfate) 8.5 Gm Hfa.aer.ad 2 Puff IH PRN Q4-6HRS PRN 21 05/14/20 Reported [Diphenoxylate Hcl/Atropine] 1 TAB Tablet 1 Tab PO PRN QID PRN 05/21/14 Rx Singulair Tablet (Montelukast Sodium) 10 Mg Tablet 10 Mg PO HS 05/02/13 Reported [Deltasone] 05/02/13 Reported [Folvite] DAILY 05/02/13 Reported Mucinex (Guaifenesin) 600 Mg Tablet.er 600 Mg PO BID 05/02/13 Reported Proventil Hfa Inhaler (Albuterol Sulfate) 6.7 Gm Hfa.aer.ad 6.7 Gm IH Q4HRS 05/02/13 Reported Percocet 5-325 Mg Tablet (Oxycodone/Acetaminophen) 1 Each Tablet 1 Each PO Q4HRS 05/02/13 Reported [Lioresol] TID 05/02/13 Reported Paxil (Paroxetine Hcl) 20 Mg Tablet 20 Mg PO DAILY 05/02/13 Reported Calcium + Vitamin D3 Caplet (Calcium Carb & Cit/Vitamin D3) 1 Each Tablet.er 1 Each PO 05/02/13 Reported Comments CTA chest Impression: 1. No definite pulmonary embolus although evaluation for distal pulmonary emboli is degraded by respiratory motion. 2. Right upper lobe spiculated mass, concerning for primary malignancy. Recommend PET/CT and/or biopsy to further evaluate. 3. Right hilar lymphadenopathy. 4. Right lower lobe solid and groundglass nodule, may represent metastasis. Recommend attention on follow-up. 5. Interstitial thickening with multifocal groundglass opacities most prominent within the lung bases, may relate to pulmonary edema or infection although a component of chronic interstitial changes is possible. 6. Moderate pulmonary emphysema. Impression . 1. Acute hypoxic respiratory failure secondary to acute exacerbation of chronic obstructive pulmonary disease and viral interstitial pneumonia./ COVID-19 positive 2. Acute exacerbation of COPD 3. Abnormal CT chest with a spiculated 2.5 cm mass in the right upper lobe, mildly enlarged right hilar lymph node. She also has a partly solid and partly ground glass nodule 1.5 cm in the right lower lobe. This is suspicious for underlying malignancy. She did have a weight loss of 16 pounds, but it was intentional. 4. Leukopenia, could be viral infection. due to COVID-19. 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 Updated 05/19 Possible discharge in the a.m. We will have my office schedule outpatient CT-guided biopsy Follow-up in the outpatient department with Dr. Seth Upon discharge Taper off of steroids ID recommended Augmentin. Continue present oxygen, keep saturation 92% and above. CTA chest reviewed no PE CXR in am Continue IV steroids Continue remdesivir for full 5 day course Continue nebulizer treatment Continue empiric antibiotics CT-guided biopsy---will do as OP in 1-2 weeks DVT/GI PPX - Lovenox dose reduced to 40 mg subcutaneous daily. D/W DOROTHY SNYDER MD May 19, 2020 08:22
[2020-05-19] MEDS: ENOXAPARIN 40 MG/0.4 ML SYRINGE. SQ SCH ×2 (09:00→20:30)
[2020-05-19] MEDS: DICLOFENAC SODIUM 1% TOPICAL GEL 100GM TUBE. TP SCH ×4 (09:01→20:39)
[2020-05-19] MEDS: OMEGA-3 FATTY ACIDS/FISH OIL 1,000 MG CAPSULE. PO SCH (09:01)
[2020-05-19] MEDS: ASPIRIN ENTERIC COATED 81 MG TABLET.DR. PO SCH (09:01)
[2020-05-19] MEDS: AMOXICILLIN/K CLAV 875/125MG TABLET. PO SCH ×2 (09:01→20:29)
[2020-05-19] MEDS: GABAPENTIN 300 MG CAPSULE. PO SCH ×3 (09:01→20:29)
[2020-05-19] MEDS: PARoxetine 20 MG TABLET PO SCH (09:02)
[2020-05-19] MEDS: TOPIRAMATE 25 MG TABLET. PO SCH ×2 (09:02→20:29)
[2020-05-19] MEDS: FOLIC ACID 1 MG TABLET. PO SCH (09:02)
[2020-05-19] MEDS: LIDOCAINE (700MG/PATCH) PATCH. TP SCH (09:02)
[2020-05-19] MEDS: CETIRIZINE HCL 10 MG TABLET. PO SCH (09:02)
--- NOTE | 2020-05-19 09:10 | PDOC ---
PROGRESS NOTES Date of Service: DATE: 05/19/20 TIME: 09:08 Subjective Subjective doing well Objective Objective Vital Signs Date Time Temp Pulse Resp B/P (MAP) Pulse Ox O2 Delivery O2 Flow Rate FiO2 05/19/20 03:00 98.3 57 20 116/65 (82) 96 Room Air 98.3 Intake and Output 05/19/20 07:00 Intake Total 800 ml Output Total 1500 ml Balance -700 ml Intake Oral 800 ml Output Urine Total 1000 ml Stool Total 0 ml Urine/Stool Mix 500 ml # Voids 4 # Bowel Movements 2 Physical Exam Abdomen: Soft Heart: Normal S1, Normal S2 Extremities: No clubbing General: Alert HEENT: Atraumatic Lungs: Other (wheezing) MUSCULOSKELETAL: No swelling Neck: No JVD Neuro: Normal speech Psych/Mental Status: Mental status NL Skin: No breakdown Diagnosis Problem List Problems Medical Problems: (1) COPD exacerbation Status: Acute (2) Hypoxia Status: Acute (3) Lung mass Status: Acute (4) Pneumonia Status: Acute Assessment Assessment 1. Lung infiltrates in the bases. Covid Pneumonia infection. 2. Right lung mass with adenopathy as well as another mass in the lower right lung, rule out metastasis. 3. Rheumatoid arthritis, on immunosuppressants, methotrexate and Actemra injections. 4. Chronic smoker for more than 30 years. 5. Fibromyalgia. PLAN: d/c home tomorrow. cxr improving day #4 remdicivr dexametahsone taper lovenox bid. continue to improve out pt lung biopsy in 2 weeks covid positive Remdesivir started yesterday 05/16/20 IV dexa methasone tid Medium dose Loveneox bid IV reocephin. At this time, the patient is admitted to the hospital. Broad-spectrum antibiotics after blood and sputum cultures. Started on Rocephin and Zithromax. Dexamethasone was added for bronchospasm. Also, nose swab for COVID. Also, pulmonary consultation. DVT prophylaxis with Lovenox. COVID-19 pneumonia. Patient is on IV Rocephin, Zithromax and IV Decadron. Consider treatment with remdesivir Consult Dr. Melvin Rajan for infectious disease evaluation and management. Recheck labs in a.m. Lung biopsy at a later date once COVID-19 infection is better. Discussed with Dr. Seth. Monitor blood sugar. The results discussed with the patient. Patient's will also get tested for COVID-19 today. Plan Plan of Care Problems Medical Problems: (1) COPD exacerbation Status: Acute (2) Hypoxia Status: Acute (3) Lung mass Status: Acute (4) Pneumonia Status: Acute Comment Review of Relevant I have reviewed the following items edgardo (where applicable) has been applied. Labs Laboratory Tests Test 05/18/20 11:08 05/18/20 16:56 05/18/20 21:24 05/19/20 07:58 Glucose (Fingerstick) 195 mg/dL (70-99) 158 mg/dL (70-99) 163 mg/dL (70-99) 115 mg/dL (70-99) Medications Current Medications Amoxicillin/ Clavulanate Potassium (Augmentin 875/ 125mg) 1 tab BID PO Last administered on 05/19/20at 09:01; Start 05/18/20 at 21:00 Vitals/I & O Vital Sign - Last 24 Hours 05/18/20 05/18/20 05/18/20 05/18/20 09:09 10:10 11:00 15:00 Temp 96.7 97.8 96.7 97.8 Pulse 67 67 Resp 18 19 20 20 B/P (MAP) 116/57 (76) 111/57 (75) Pulse Ox 96 95 95 O2 Delivery Room Air Room Air Room Air Room Air 05/18/20 05/18/20 05/18/20 05/18/20 17:04 18:10 19:00 20:00 Temp 98.6 98.6 Pulse 59 Resp 19 20 20 B/P (MAP) 165/69 (101) Pulse Ox 95 95 95 O2 Delivery Room Air Room Air Room Air Room Air 05/18/20 05/19/20 23:00 03:00 Temp 97.9 98.3 97.9 98.3 Pulse 65 57 Resp 20 20 B/P (MAP) 172/70 (104) 116/65 (82) Pulse Ox 94 96 O2 Delivery Room Air Room Air Intake and Output 05/18/20 05/18/20 05/19/20 15:00 23:00 07:00 Intake Total 200 ml 600 ml Output Total 500 ml 1000 ml Balance -500 ml 200 ml -400 ml Justifications for Admission Other Justification MEGHAN REECE MD May 19, 2020 09:10
--- NOTE | 2020-05-19 10:35 | PDOC ---
Infectious Disease Note Subjective Subjective pt is feeling good, off o2, cough with bloody sputum present ROS ROS no n/v/d/ Vital Sign Vital Signs Vital Signs Date Time Temp Pulse Resp B/P (MAP) Pulse Ox O2 Delivery O2 Flow Rate FiO2 05/19/20 07:00 98.2 60 22 174/81 (112) Room Air 98.2 05/19/20 03:00 96 Physical Exam PHYSICAL EXAM GENERAL: Alert, oriented female, not in distress. VITAL SIGNS: Stable. Afebrile. HEENT: NAD. NECK: Supple. No JVP. No lymphadenopathy. LUNGS: Clear. HEART: S1, S2 regular. ABDOMEN: Soft, nontender. No organomegaly. EXTREMITIES: No edema or cyanosis. SKIN: Unremarkable. NEUROLOGIC: The patient is alert, awake and appropriate. No focal neurologic deficit. Labs Lab Laboratory Tests Test 05/18/20 11:08 05/18/20 16:56 05/18/20 21:24 05/19/20 07:58 Glucose (Fingerstick) 195 mg/dL (70-99) 158 mg/dL (70-99) 163 mg/dL (70-99) 115 mg/dL (70-99) Objective Assessment IMPRESSION: 1. COVID-19 positive. 2. Pulmonary spiculated mass with hilar lymphadenopathy, concerning for malignancy. Biopsy has been pending. 3. Rheumatoid arthritis. 4. Obesity. 5. Chronic obstructive pulmonary disease. 6. Fibromyalgia. Plan Plan of Care augmentin ok to d/c biopsy later planned CALEB PARKER MD May 19, 2020 10:35
[2020-05-19 11:00] VITALS: BP 160/72
--- NOTE | 2020-05-19 12:51 | NUR ---
SW following for discharge planning. Spoke with RN and reviewed chart. Pt will likely discharge home tomorrow, 05/20 self-care. Pt's last dose of IV Remdesivir is 05/20. Pt remains on room air and oral abx. SW following.
[2020-05-19] MEDS: REMDESIVIR 100mg in NORMAL SALINE 250ML X 4 DAYS IV SCH (14:56)
[2020-05-19 15:00] VITALS: BP 148/65
[2020-05-19] MEDS: HYDROcodone/APAP 10/325 1 TAB TABLET PO PRN ×2 (15:09→23:43)
[2020-05-19 19:00] VITALS: BP 121/56
[2020-05-19] MEDS: MONTELUKAST SODIUM 10 MG TABLET. PO SCH (20:29)
[2020-05-19] MEDS: PATCH REMOVAL. MC SCH (20:39)
[2020-05-19 22:52] VITALS: BP 136/59
[2020-05-20 07:00] VITALS: BP 134/63
[2020-05-20] MEDS: INSULIN LISPRO 300 UNITS/3 ML VIAL. SQ SCH (07:30)
[2020-05-20] MEDS ORDERED: DEXAMETHASONE 4 MG TABLET PO SCH (08:00)
--- NOTE | 2020-05-20 08:45 | PDOC ---
PULMONARY PROGRESS NOTES DATE: 05/20/20 TIME: 08:45 Subjective No new complaints feels better Vitals Vital Signs Date Time Temp Pulse Resp B/P (MAP) Pulse Ox O2 Delivery O2 Flow Rate FiO2 05/20/20 07:00 98.7 63 18 134/63 (86) Room Air 98.7 05/20/20 00:43 98 2.0 ROS: No Nausea, No Chest Pain, No Abdominal Pain, No Increase Cough General: Alert Lungs: Clear Cardiovascular: S1, S2 Abdomen: Soft Neuro Exam: Alert Extremities: No Edema Skin: Warm, Dry Labs Laboratory Tests Test 05/18/20 11:08 05/18/20 16:56 05/18/20 21:24 05/19/20 07:58 Glucose (Fingerstick) 195 mg/dL (70-99) 158 mg/dL (70-99) 163 mg/dL (70-99) 115 mg/dL (70-99) Test 05/19/20 13:25 05/19/20 16:42 05/19/20 19:31 05/20/20 07:28 Glucose (Fingerstick) 178 mg/dL (70-99) 121 mg/dL (70-99) 170 mg/dL (70-99) 82 mg/dL (70-99) Laboratory Tests Test 05/19/20 13:25 05/19/20 16:42 05/19/20 19:31 05/20/20 07:28 Glucose (Fingerstick) 178 mg/dL (70-99) 121 mg/dL (70-99) 170 mg/dL (70-99) 82 mg/dL (70-99) Medications Active Scripts Medications Dose Route/Sig Max Daily Dose Days Date Category Dose Instructions Topiramate 50 Mg Tablet 1 Tab PO BID 30 05/14/20 Reported Percocet 10-325 Mg Tablet (Oxycodone/Acetaminophen) 1 Each Tablet 1 Tab PO PRN BID PRN MDD 2 Tablet(s) 5 05/14/20 Reported Omeprazole 40 Mg Capsule.dr 1 Cap PO DAILY 05/14/20 Reported Methotrexate (Methotrexate Sodium) 2.5 Mg Tablet 6 Tab PO QSU 05/14/20 Reported Lidocaine PATCH (Lidocaine) 1 Each Adh..patch 1 Each TP DAILY 05/14/20 Reported REMOVE AFTER 12 HOURS Gabapentin 600 Mg Tablet 600 Mg PO TID 05/14/20 Reported Folic Acid 0.8 Mg Capsule 1 Cap PO DAILY 30 05/14/20 Reported Fish Oil 1,000 Mg Softgel (Lima-3 Fatty Acids/Fish Oil) 1 Each Capsule 2 Cap PO DAILY 30 05/14/20 Reported Voltaren (Diclofenac Sodium) 100 Gm Gel..gram. 1 Gm TP QID 30 05/14/20 Reported apply to affected area(s) Claritin (Loratadine) 10 Mg Tablet 1 Tab PO DAILY 30 05/14/20 Reported Symbicort 160-4.5 Mcg Inhaler (Budesonide/Formoterol Fumarate) 10.2 Gm Hfa.aer.ad 2 Puff IH BID 05/14/20 Reported Duoneb 0.5-3(2.5) Mg/3 Ml (Albuterol/Ipratropium) 3 Ml Ampul.neb 3 Ml NEB QID 05/14/20 Reported Benzonatate 100 Mg Capsule 100 Mg PO TID PRN 05/14/20 Reported Aspirin Ec (Aspirin) 81 Mg Tablet.dr 81 Mg PO DAILY 05/14/20 Reported Actemra Actpen (Tocilizumab) 162 Mg/0.9 Ml Pen.injctr 162 Mg SQ QSU 05/14/20 Reported Proair Hfa (Albuterol Sulfate) 8.5 Gm Hfa.aer.ad 2 Puff IH PRN Q4-6HRS PRN 05/14/20 Reported [Diphenoxylate Hcl/Atropine] 1 TAB Tablet 1 Tab PO PRN QID PRN 05/21/14 Rx Singulair Tablet (Montelukast Sodium) 10 Mg Tablet 10 Mg PO HS 05/02/13 Reported [Deltasone] 05/02/13 Reported [Folvite] DAILY 05/02/13 Reported Mucinex (Guaifenesin) 600 Mg Tablet.er 600 Mg PO BID 05/02/13 Reported Proventil Hfa Inhaler (Albuterol Sulfate) 6.7 Gm Hfa.aer.ad 6.7 Gm IH Q4HRS 05/02/13 Reported Percocet 5-325 Mg Tablet (Oxycodone/Acetaminophen) 1 Each Tablet 1 Each PO Q4HRS 05/02/13 Reported [Lioresol] TID 05/02/13 Reported Paxil (Paroxetine Hcl) 20 Mg Tablet 20 Mg PO DAILY 05/02/13 Reported Calcium + Vitamin D3 Caplet (Calcium Carb & Cit/Vitamin D3) 1 Each Tablet.er 1 Each PO 05/02/13 Reported Comments CTA chest Impression: 1. No definite pulmonary embolus although evaluation for distal pulmonary emboli is degraded by respiratory motion. 2. Right upper lobe spiculated mass, concerning for primary malignancy. Recommend PET/CT and/or biopsy to further evaluate. 3. Right hilar lymphadenopathy. 4. Right lower lobe solid and groundglass nodule, may represent metastasis. Recommend attention on follow-up. 5. Interstitial thickening with multifocal groundglass opacities most prominent within the lung bases, may relate to pulmonary edema or infection although a component of chronic interstitial changes is possible. 6. Moderate pulmonary emphysema. Impression . 1. Acute hypoxic respiratory failure secondary to acute exacerbation of chronic obstructive pulmonary disease and viral interstitial pneumonia./ COVID-19 positive 2. Acute exacerbation of COPD 3. Abnormal CT chest with a spiculated 2.5 cm mass in the right upper lobe, mildly enlarged right hilar lymph node. She also has a partly solid and partly ground glass nodule 1.5 cm in the right lower lobe. This is suspicious for underlying malignancy. She did have a weight loss of 16 pounds, but it was intentional. 4. Leukopenia, could be viral infection. due to COVID-19. 5. 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 Updated 05/20 Patient scheduled for FNA on the Follow-up with me on 10 June appointment given at 3:45 Updated 05/19 Possible discharge in the a.m. We will have my office schedule outpatient CT-guided biopsy Follow-up in the outpatient department with Dr. Seth Upon discharge Taper off of steroids ID recommended Augmentin. Continue present oxygen, keep saturation 92% and above. CTA chest reviewed no PE CXR in am Continue IV steroids Continue remdesivir for full 5 day course Continue nebulizer treatment Continue empiric antibiotics CT-guided biopsy---will do as OP in 1-2 weeks DVT/GI PPX - Lovenox dose reduced to 40 mg subcutaneous daily. D/W DOROTHY SNYDER MD May 20, 2020 08:45
[2020-05-20] MEDS: PARoxetine 20 MG TABLET PO SCH (08:53)
[2020-05-20] MEDS: ASPIRIN ENTERIC COATED 81 MG TABLET.DR. PO SCH (08:53)
[2020-05-20] MEDS: CETIRIZINE HCL 10 MG TABLET. PO SCH (08:53)
[2020-05-20] MEDS: GABAPENTIN 300 MG CAPSULE. PO SCH (08:53)
[2020-05-20] MEDS: TOPIRAMATE 25 MG TABLET. PO SCH (08:53)
[2020-05-20] MEDS: AMOXICILLIN/K CLAV 875/125MG TABLET. PO SCH (08:53)
[2020-05-20] MEDS: FOLIC ACID 1 MG TABLET. PO SCH (08:54)
[2020-05-20] MEDS: ENOXAPARIN 40 MG/0.4 ML SYRINGE. SQ SCH (08:55)
[2020-05-20] MEDS: OMEGA-3 FATTY ACIDS/FISH OIL 1,000 MG CAPSULE. PO SCH (08:55)
[2020-05-20] MEDS: LIDOCAINE (700MG/PATCH) PATCH. TP SCH (09:00)
[2020-05-20] MEDS: DICLOFENAC SODIUM 1% TOPICAL GEL 100GM TUBE. TP SCH (09:00)
--- NOTE | 2020-05-20 09:07 | PDOC ---
Infectious Disease Note Subjective Subjective pt is feeling good, off o2, cough with bloody sputum present Vital Sign Vital Signs Vital Signs Date Time Temp Pulse Resp B/P (MAP) Pulse Ox O2 Delivery O2 Flow Rate FiO2 05/20/20 07:00 98.7 63 18 134/63 (86) Room Air 98.7 05/20/20 00:43 98 2.0 Physical Exam PHYSICAL EXAM GENERAL: Alert, oriented female, not in distress. VITAL SIGNS: Stable. Afebrile. HEENT: NAD. NECK: Supple. No JVP. No lymphadenopathy. LUNGS: Clear. HEART: S1, S2 regular. ABDOMEN: Soft, nontender. No organomegaly. EXTREMITIES: No edema or cyanosis. SKIN: Unremarkable. NEUROLOGIC: The patient is alert, awake and appropriate. No focal neurologic deficit. Labs Lab Laboratory Tests Test 05/19/20 13:25 05/19/20 16:42 05/19/20 19:31 05/20/20 07:28 Glucose (Fingerstick) 178 mg/dL (70-99) 121 mg/dL (70-99) 170 mg/dL (70-99) 82 mg/dL (70-99) Objective Assessment IMPRESSION: 1. COVID-19 positive. 2. Pulmonary spiculated mass with hilar lymphadenopathy, concerning for malignancy. Biopsy has been pending. 3. Rheumatoid arthritis. 4. Obesity. 5. Chronic obstructive pulmonary disease. 6. Fibromyalgia. Plan Plan of Care augmentin ok to d/c biopsy later planned CALEB PARKER MD May 20, 2020 09:07
--- NOTE | 2020-05-20 09:11 | PDOC ---
PROGRESS NOTES Date of Service: DATE: 05/20/20 TIME: 09:09 Subjective Subjective doing well Objective Objective Vital Signs Date Time Temp Pulse Resp B/P (MAP) Pulse Ox O2 Delivery O2 Flow Rate FiO2 05/20/20 07:00 98.7 63 18 134/63 (86) Room Air 98.7 05/20/20 00:43 98 2.0 Intake and Output 05/20/20 07:00 Intake Total 600 ml Output Total 1 ml Balance 599 ml Intake Oral 370 ml Blood Product IV Normal Saline Flush 230 ml Output Urine Total 1 ml # Voids 2 Physical Exam Abdomen: Soft Heart: Normal S1, Normal S2 Extremities: No clubbing General: Alert HEENT: Atraumatic Lungs: Other (wheezing) MUSCULOSKELETAL: No swelling Neck: No JVD Neuro: Normal speech Psych/Mental Status: Mental status NL Skin: No breakdown Diagnosis Problem List Problems Medical Problems: (1) COPD exacerbation Status: Acute (2) Hypoxia Status: Acute (3) Lung mass Status: Acute (4) Pneumonia Status: Acute Assessment Assessment 1. Lung infiltrates in the bases. Covid Pneumonia infection. 2. Right lung mass with adenopathy as well as another mass in the lower right lung, rule out metastasis. 3. Rheumatoid arthritis, on immunosuppressants, methotrexate and Actemra injections. 4. Chronic smoker for more than 30 years. 5. Fibromyalgia. PLAN:po augmentinfor 5 days spoke with ID d/c home today. cxr improving day #5 remdicivr dexametahsone taper lovenox bid. continue to improve out pt lung biopsy in 2 weeks on 06/02/20 Plan Plan of Care Problems Medical Problems: (1) COPD exacerbation Status: Acute (2) Hypoxia Status: Acute (3) Lung mass Status: Acute (4) Pneumonia Status: Acute Comment Review of Relevant I have reviewed the following items edgardo (where applicable) has been applied. Labs Laboratory Tests Test 05/19/20 13:25 05/19/20 16:42 05/19/20 19:31 05/20/20 07:28 Glucose (Fingerstick) 178 mg/dL (70-99) 121 mg/dL (70-99) 170 mg/dL (70-99) 82 mg/dL (70-99) Medications Current Medications Dexamethasone (Decadron) 6 mg [id number] PO Last administered on 05/20/20at 08:54; Start 05/20/20 at 08:00 Vitals/I & O Vital Sign - Last 24 Hours 05/19/20 05/19/20 05/19/20 05/19/20 11:00 15:00 15:09 16:20 Temp 98.3 97.1 98.3 97.1 Pulse 57 68 Resp 20 20 B/P (MAP) 160/72 (101) 148/65 (92) O2 Delivery Room Air Room Air Room Air Room Air 05/19/20 05/19/20 05/19/20 05/19/20 19:00 20:00 22:52 23:43 Temp 98.0 97.6 98.0 97.6 Pulse 70 60 Resp 20 18 20 B/P (MAP) 121/56 (77) 136/59 (84) Pulse Ox 99 98 98 O2 Delivery Room Air Room Air Room Air Room Air O2 Flow Rate 2.0 05/20/20 05/20/20 00:43 07:00 Temp 98.7 98.7 Pulse 63 Resp 18 18 B/P (MAP) 134/63 (86) Pulse Ox 98 O2 Delivery Room Air Room Air O2 Flow Rate 2.0 Intake and Output 05/19/20 05/19/20 05/20/20 15:00 23:00 07:00 Intake Total 600 ml Output Total 1 ml Balance 599 ml Justifications for Admission Other Justification MEGHAN REECE MD May 20, 2020 09:11
[2020-05-20] MEDS ORDERED: AMOX1TAB11 PO (09:14)
[2020-05-20] MEDS ORDERED: DEXA4TAB63 PO (09:14)
[2020-05-20 11:00] VITALS: BP 140/71
[2020-05-20] MEDS: REMDESIVIR 100mg in NORMAL SALINE 250ML X 4 DAYS IV SCH (12:12)
[2020-05-20] MEDS: HYDROcodone/APAP 10/325 1 TAB TABLET PO PRN (12:13)
--- NOTE | 2020-05-20 14:06 | NUR ---
SW following for discharge planning. Spoke with RN and reviewed chart. Pt to discharge home self-care today, 05/20. Pt on oral medications and room air. No further SW needs at this time.
--- NOTE | 2020-05-20 15:44 | NUR ---
Patient discharged home to in stable condition. Patient verbalized understanding of discharge instructions, including, but not limited to diet, medications, activity, COVID-quarantine, scheduled biopsy in outpatient, and f/u with Dr Booker.
--- NOTE | 2020-05-21 20:33 | PDOC ---
Provider Note Date of Service: DATE: 05/21/20 TIME: 20:32 Provider Note Discharge summary dictated.#[id number] Justifications for Admission Other Justification MEGHAN REECE MD May 21, 2020 20:33
--- NOTE | 2020-05-22 04:01 | DS ---
DATE OF DISCHARGE: 05/20/2020 REASONS FOR ADMISSION TO THE HOSPITAL: 1. COVID pneumonia. 2. Right upper lung mass, new. 3. History of heavy smoking. 4. Rheumatoid arthritis. CONSULTATIONS: 1. Dr. Booker. 2. Melvin Rajan, Infectious Disease. PROCEDURE DONE: CT chest. HOSPITAL COURSE: The patient is a 55-year-old female, history of heavy smoking for 30 years, at least 1-2 packs. She has a history of rheumatoid arthritis. She is on immunosuppressants, methotrexate as well as she is on injection, Actemra, for rheumatoid arthritis. She was having cough, shortness of breath and was brought to the hospital. Chest x-ray shows bilateral lung infiltrates. COVID test came back positive. CT scan of the chest shows no pulmonary embolism, but a right upper lung mass which is 2.5 cm x 2.3 cm and also another nodule in the right lower lobe of 1.5 x 1.7, pulmonary emphysema, some mildly enlarged right hilar lymph nodes and mediastinal lymph nodes. The patient was seen by Pulmonology. The patient was seen by Infectious Disease. The patient was treated with remdesivir for 5 days IV and dexamethasone IV 3 times daily. The patient's condition improved. She was no longer dependent on oxygen, she was given 2 L while she was in the hospital. The patient's condition improved and she was discharged on oral dexamethasone and oral Augmentin for another one week. The patient is planned to have an outpatient lung biopsy in 2 weeks after she has recovered from COVID. FINAL DIAGNOSES: 1. COVID-19 infection with pneumonia. 2. Right upper lung mass, 2.5 x 2.3, new, needs further evaluation. 3. Smoking history. 4. Rheumatoid arthritis, on immunosuppressants. 5. Hypertension. DISPOSITION: Home. See EMR for discharge medications. Scheduled for an outpatient lung biopsy in 2 weeks. Isolation at home for another 10 days. MEGHAN REECE MD DR: HANY/nandini JOB#: [id number] / [id number] ELHAM
== END 2020-05-20 15:44 | disposition home or self-care (01) | DRG 177 ==
LOC: ER 11:21 → ED HOLD 14:27 → 6 SOUTH 17:35
PROVIDERS: ADMIT Internal Medicine; ATTEND Internal Medicine
PROC: XW033E5 Introduction of Remdesivir Anti-infective into Peripheral Vein, Percutaneous Approach, New Technology Group 5 (ICD-10-PCS; principal; 2020-05-20)
DX: U07.1 COVID-19 (principal); J12.82 Pneumonia due to coronavirus disease 2019; J96.01 Acute respiratory failure with hypoxia; D84.821 Immunodeficiency due to drugs; Z79.899 Other long term (current) drug therapy; M06.9 Rheumatoid arthritis, unspecified; Z87.891 Personal history of nicotine dependence; M79.7 Fibromyalgia; Z88.8 Allergy status to other drugs, medicaments and biological substances; E66.9 Obesity, unspecified; Z68.39 Body mass index [BMI] 39.0-39.9, adult; J43.9 Emphysema, unspecified; I10 Essential (primary) hypertension; E78.5 Hyperlipidemia, unspecified; Z82.49 Family history of ischemic heart disease and other diseases of the circulatory system; Z82.5 Family history of asthma and other chronic lower respiratory diseases; Z96.642 Presence of left artificial hip joint; Z98.51 Tubal ligation status; F32.9 Major depressive disorder, single episode, unspecified; G62.9 Polyneuropathy, unspecified; K21.9 Gastro-esophageal reflux disease without esophagitis
CPT/HCPCS: 36415; 71045; 71275; 80048; 80053; 80076; 82962; 83690; 83880; 84484; 85007; 85025; 85379; 93005; 94640; 96365; 96375; 99285; J0456; J0696; J1100; J1650; J1815; J2543; J2930; J7050; Q9967; U0003; U0005; G0378; J7030

== ENCOUNTER 2020-06-02 08:17 | Outpatient (CLI) | payer MEDICARE ==
[2020-06-02] VITALS (15 sets, daily range): BP systolic 90–141; BP diastolic 61–99
[~2020-06-02] VITALS: Ht 154.9 cm; Wt 83.9 kg
[~2020-06-02 08:17] MED LIST changes: +ALBU2.5V8 IH; +AMOX1TAB11 PO; +ASPI-886 PO; +BENZ-8 PO; +BUDE10.2 IH; +DEXA4TAB63 PO; +DICL100G54 TP; +FOLI0.8C PO; +GABA600T7 PO; +IPRA3AMP29 NEB; +LIDO700A21 TP; +LORA10TA68 PO; +METH2.5T PO; +OMEG1CAP50 PO; +OMEP40CA45 PO; +OXYC1TAB22 PO; +TOCI162P SQ; +TOPI50TA8 PO
[2020-06-02 08:54] LABS: BASO % 0 % (0-3); EOS # 0.2 x10^3/uL (0.0-0.7); EOS % 4 % (0-3); HEMATOCRIT 40.5 % (36.0-47.0); HEMOGLOBIN 13.2 g/dL (12.0-15.5); LYMPH # 2.7 x10^3/uL (1.0-4.8); LYMPH % 53 % (24-48); MEAN CORPUSCULAR HEMOGLOBIN 32 pg (25-35); MEAN CORPUSCULAR HGB CONC 33 g/dL (31-37); MEAN CORPUSCULAR VOLUME 99 fL (79-100); MONO # 0.5 x10^3/uL (0.0-1.1); MONO % 10 % (0-9); NEUT # 1.6 x10^3/uL (1.8-7.7); NEUT % 32 % (31-73); PLATELET COUNT 280 x10^3/uL (140-400); RED CELL DISTRIBUTION WIDTH 16.1 % (11.5-14.5)
[2020-06-02 08:56] LABS: PROTHROMBIN TIME PATIENT 12.8 SEC (11.7-14.0)
[2020-06-02] MEDS ORDERED: fentaNYL PF VIAL 100 MCG/2 ML VIAL ONE (09:42)
[2020-06-02] MEDS ORDERED: MIDAZOLAM HCL/PF 5 MG/5 ML VIAL. ONE (09:42)
[2020-06-02] MEDS ORDERED: LIDOCAINE WITH 8.4% SOD BICARB 3 ML DISP.SYRIN. ONE (09:49)
[2020-06-02] MEDS ORDERED: fentaNYL PF VIAL 100 MCG/2 ML VIAL IV ONE (10:15)
[2020-06-02] MEDS ORDERED: MIDAZOLAM HCL/PF 5 MG/5 ML VIAL. IV ONE (10:15)
[2020-06-02] MEDS ORDERED: LIDOCAINE WITH 8.4% SOD BICARB 3 ML DISP.SYRIN. IJ ONE (10:15)
--- NOTE | 2020-06-02 12:46 | RAD ---
EXAM: Chest, single view. HISTORY: Lung biopsy. COMPARISON: 05/18/2020 FINDINGS: A frontal view of the chest is obtained. There is stable diffuse increased interstitial opa city with suspected superimposed lower lobe atelectasis. There is no consolidation, pleural effusion or pneumothorax. There is a stable cardiac silhouette. IMPRESSION: 1. Stable chronic appearing interstitial changes with lower lobe atelectasis. 2. Note is made that a right suprahilar spiculated mass demonstrated on the prior CT is not well seen radiographically. Please refer to the prior CT report for characterization of this finding. Electronically signed by: Eleni Bob MD (06/02/2020 12:43 PM) [id number]
--- NOTE | 2020-06-02 13:00 | NUR ---
Discharge Note: IKE BUSH Discharge instructions and discharge home medications reviewed with Patient and a copy given. All questions have been answered and understanding verbalized. Dressing to R shoulder dry and intact The following instructions and handouts were given: needle lung biopsy, moderate sedation Discontinued lines and drains: Peripheral IV intact. Patient discharged to Home or Self Care with Spouse via Wheelchair HALI RAMIRES
--- NOTE | 2020-06-02 14:43 | RAD ---
CT-guided biopsy, right upper lobe mass 06/02/2020 Clinical Indication: Right upper lung mass, Discussion: The procedure was explained in its entirety to the patient or the patients designated agency sales representative by a member of the treatment team, including a discussion of the risks, benefits and commonly accepted alternatives to the procedure, as well as the expected consequences of no therapy whatsoever. Discussion of the risks included, but was not limited to, those that are most frequent and those that are rare but possibly severe or life-threatening, as well as the possibility of unforeseen complications. All elements of maximal sterile barrier technique including the use of a cap, mask, sterile gown, sterile gloves, large sterile sheet, appropriate hand hygiene, and 2% chlorhexidine for cutaneous antisepsis (or acceptable alternative antiseptic per current guidelines) were followed for this procedure. The patient was brought to the CT scanner and placed in the prone position. A timeout procedure was performed. The posterior upper right thorax was prepped and draped using sterile barrier technique. CT imaging redemonstrates a somewhat spiculated mass in the right upper lobe. 1% lidocaine was administered for local anesthesia. Under intermittent CT guidance a 17-gauge needle was advanced into the mass. Core biopsy samples were obtained and placed in formalin. Minimal post biopsy pneumothorax was seen. Aspiration was performed. The needle was removed. Pneumothorax was improved with barely visible pleural air remaining. Sterile dressings were applied. The procedures performed under conscious sedation including continuous cardiopulmonary monitoring via dedicated sedation nurse. [id number] sedation time: 30 minutes Impression: CT-guided biopsy, right upper lobe mass. Minimal post biopsy pneumothorax, with successful aspiration. PQRS Compliance Statement: One or more of the following individualized dose reduction techniques were utilized for this examination: 1. Automated exposure control 2. Adjustment of the mA and/or kV according to patient size 3. Use of iterative reconstruction technique
--- NOTE | 2020-06-03 18:15 | PATHOLOGY ---
[facility] Accession Number: [id number] . 01 Material submitted: . lung - RIGHT LUNG MASS CORE BIOPSY. Modifiers: right . 01 Clinical history: . RIGHT LUNG MASS RIGHT LUNG BIOPSY . 02 Diagnosis: Lung tissue, right lung mass needle biopsies: - ADENOCARCINOMA, MODERATELY DIFFERENTIATED. SEE COMMENT. (JPM:jerry; 06/03/2020) S 06/03/2020 0903 Local . 02 Comment: Sections of the right lung mass CT guided needle biopsy reveal lung tissue showing areas of replacement by a malignant epithelial neoplasm. The malignant cells have an acinar and papillary arrangement. The malignant cells have moderate amounts of eosinophilic to clear cytoplasm, and possess enlarged, moderately pleomorphic hyperchromatic nuclei. The tumor is associated with a reactive desmoplastic stroma. There is focal tumor necrosis. The morphologic findings are supportive of the diagnosis of a moderately differentiated pulmonary adenocarcinoma. The case is also examined by Dr. Echevarria, who concurs with the diagnosis. The results are reported to Dr. Booker on 06/03/2020 at 2:58 PM. (JPM:jerry; 06/03/2020) . 02 Electronically signed: . Minh Kendall MD, Pathologist NPI- [id number] . 01 Gross description: . The specimen is received in formalin, labeled "[place], right lung" and consists of 2 soft johnson tissue cores measuring up to 0.7 x less than 0.1 cm entirely submitted in A1.([facility]; 06/02/2020) AGUILAR/AGUILAR 06/03/2020 0858 Local . 02 Pathologist provided ICD-10: C34.91 . 02 CPT . 260999 Specimen Comment: A courtesy copy of this report has been sent to [phone], [phone] Specimen Comment: [id number] Specimen Comment: Report sent to / DR BOOKER Performed at: [address] [facility], [place] [id number] MD Kenney Echevarria MD Phone: [phone] Performed at: [facility] [address] [place], [place] [id number] MD Minh Kendall MD Phone: [phone]
== END 2020-06-02 13:15 | disposition home or self-care (01) ==
LOC: INTRAD 08:17
PROVIDERS: ATTEND Internal Medicine Pulmonary Disease
DX: C34.91 Malignant neoplasm of unspecified part of right bronchus or lung (principal); R91.8 Other nonspecific abnormal finding of lung field; E78.00 Pure hypercholesterolemia, unspecified; K21.9 Gastro-esophageal reflux disease without esophagitis; F32.9 Major depressive disorder, single episode, unspecified; M06.9 Rheumatoid arthritis, unspecified; Z87.440 Personal history of urinary (tract) infections; Z79.899 Other long term (current) drug therapy; Z79.82 Long term (current) use of aspirin; Z98.890 Other specified postprocedural states; Z88.8 Allergy status to other drugs, medicaments and biological substances
CPT/HCPCS: 32408; 36415; 71045; 77012; 85025; 85610; 99152; 99153; J2250; J3010; J3490

== ENCOUNTER → 2020-06-26 | Outpatient (CLI) | payer MEDICARE ==
[2020-06-02 12:53] VITALS: BP 99/65
--- NOTE | 2020-06-26 14:02 | RAD ---
PET/CT SCAN INDICATIONS: Right lung mass. PET/CT SCAN TECHNIQUE: Approximately 60 minutes after the intravenous administration of 14.2 millicur ies of F-18 fluorodeoxyglucose (FDG), PET imaging of the body from the base of the skull through the mid thighs was performed. Reconstruction in all 3 planes were performed. The patient's serum glucose level at the time of the F-18 FDG administration was 101 mg/dL. A noncontrast CT scan was obtained fo r attenuation correction and anatomic localization purposes only and is not considered a diagnostic C T scan. PQRS compliance Statement One or more of the following individualized dose reduction techniques were utilized for this study: 1. Automated exposure control 2. Adjustment of the mA and/or kV according to patient size 3. Use of iterative reconstruction technique FINDINGS: HEAD AND NECK: There is a posterior right lower thyroid nodule with a max SUV of 4.0. No discrete mas s is seen here. There is abnormal activity of the left piriform sinus with a max SUV of 5.3. Soft tis dorothea thickening is seen here. There is Max SUV activity involving left side of the adenoids measuring 5.5 without mass. There is Max SUV activity in the right palatine tonsil measuring 5.7. Findings coul d be reflective of physiologic activity or could be seen with pharyngitis. Neoplastic disease cannot be excluded. CHEST: There is a medial right upper lobe lung mass measuring 2.9 cm with a max SUV of 12.6. There is a right lower lobe lung nodule measuring 1.7 cm with a max SUV of 3.0. Right hilar lymphadenopathy i s seen. Evaluation of hilar lymphadenopathy is difficult without IV contrast but appears to be at francesca st an AP measurement of 2.4 cm. Max SUV here is 4.7. There is an azygos lymph node measuring 2.9 cm t ransversely with a max SUV of 5.2. There is a right paratracheal lymph node measuring 1.2 cm with a m ax SUV 4.0. There are additional smaller mediastinal lymph nodes. No left lung nodule is seen. ABDOMEN AND PELVIS: There is physiologic activity within the GI and tract. No enlarged or hypermet abolic abdominal.pelvic lymphadenopathy is seen. There is misregistration artifact within the lower p carina including the floor of the urinary bladder and the anorectal region and posterior vagina. No hy permetabolic soft tissue mass is evident. No hepatic metastasis is seen. MUSCULOSKELETAL: No lytic process or hypermetabolic activity is seen. IMPRESSION: Right upper lobe lung mass with metastatic right lower lobe lung nodule and metastatic ri ght hilar lymphadenopathy and metastatic mediastinal lymphadenopathy. Hypermetabolic activity involving the left piriform sinus and left side of the adenoid and the right palatine tonsil. This may be physiologic in nature or related to pharyngitis. Underlying neoplastic d isease cannot be excluded. Clinical correlation is recommended. Hypermetabolic right lower lobe thyroid nodule difficult to measure by CT. Recommend thyroid sonograp hy. Electronically signed by: Thierry Brar MD (06/26/2020 1:59 PM) [id number]
== END ==
LOC: PETSC 08:27
PROVIDERS: ATTEND Internal Medicine Pulmonary Disease
DX: R91.8 Other nonspecific abnormal finding of lung field (principal); R91.1 Solitary pulmonary nodule
CPT/HCPCS: 78815; A9552

== ENCOUNTER → 2020-07-08 | Outpatient (CLI) | payer MEDICARE ==
[2020-06-02 12:53] VITALS: BP 99/65
[2020-07-08 16:56] LABS: BASO # 0.1 x10^3/uL (0.0-0.2); BASO % 1 % (0-3); EOS # 0.4 x10^3/uL (0.0-0.7); EOS % 6 % (0-3); HEMATOCRIT 38.1 % (36.0-47.0); HEMOGLOBIN 12.7 g/dL (12.0-15.5); LYMPH # 2.3 x10^3/uL (1.0-4.8); LYMPH % 40 % (24-48); MEAN CORPUSCULAR HEMOGLOBIN 31 pg (25-35); MEAN CORPUSCULAR HGB CONC 33 g/dL (31-37); MEAN CORPUSCULAR VOLUME 93 fL (79-100); MONO # 0.5 x10^3/uL (0.0-1.1); MONO % 9 % (0-9); NEUT # 2.5 x10^3/uL (1.8-7.7); NEUT % 44 % (31-73); PLATELET COUNT 198 x10^3/uL (140-400); RED BLOOD COUNT 4.08 x10^6/uL (3.50-5.40); RED CELL DISTRIBUTION WIDTH 14.5 % (11.5-14.5); WHITE BLOOD COUNT 5.6 x10^3/uL (4.0-11.0)
[2020-07-08 17:05] LABS: CREATININE 0.9 mg/dL (0.6-1.0); GFR 64.5; POTASSIUM 3.8 mmol/L (3.5-5.1)
[2020-07-08 17:10] LABS: ALBUMIN 3.4 g/dL (3.4-5.0); ALBUMIN/GLOBULIN RATIO 0.9 (1.0-1.7); TOTAL BILIRUBIN 0.3 mg/dL (0.2-1.0); TOTAL PROTEIN 7.4 g/dL (6.4-8.2)
[2020-07-08 17:50] LABS: % BASOS 2 % (0-3); % EOS 5 % (0-5); % LYMPHS 47 % (24-48); % MONOS 5 % (0-10); % SEGS 41 % (35-66); PLT ESTIMATE ADEQUATE (ADEQUATE)
== END ==
LOC: ONCLAB 16:25
PROVIDERS: ATTEND Internal Medicine Hematology & Oncology
DX: C34.11 Malignant neoplasm of upper lobe, right bronchus or lung (principal)
CPT/HCPCS: 36415; 80053; 85007; 85025

== ENCOUNTER 2020-07-10 07:05 | Outpatient (CLI) | payer MEDICARE ==
[~2020-07-10] VITALS: Ht 152.4 cm; Wt 90.9 kg
[~2020-07-10 07:05] MED LIST changes: -GADOTERATE 5 MMOL/10ML VIAL. IVP ONE
[2020-07-10] MEDS ORDERED: LIDOCAINE 1%/EPI 1:100,000 20 ML VIAL. ONE (07:53)
[2020-07-10 07:56] VITALS: BP 134/72
[2020-07-10 08:08] LABS: PROTHROMBIN TIME PATIENT 12.8 SEC (11.7-14.0)
[2020-07-10] MEDS ORDERED: MIDAZOLAM HCL/PF 2 MG/2 ML VIAL. IV ONE (08:15)
[2020-07-10] MEDS ORDERED: LIDOCAINE 2%/EPI 1:100,000 20 ML VIAL. IJ ONE (08:15)
[2020-07-10] MEDS ORDERED: fentaNYL PF VIAL 100 MCG/2 ML VIAL IV ONE (08:15)
[2020-07-10] MEDS ORDERED: MIDAZOLAM HCL/PF 2 MG/2 ML VIAL. ONE (08:32)
[2020-07-10] MEDS ORDERED: fentaNYL PF VIAL 100 MCG/2 ML VIAL ONE (08:33)
[2020-07-10 09:20] VITALS: BP 135/65
[2020-07-10 09:30] VITALS: BP 116/68
[2020-07-10 09:45] VITALS: BP 114/62
[2020-07-10 10:00] VITALS: BP 124/75
[2020-07-10 11:20] VITALS: BP 113/57
--- NOTE | 2020-07-10 11:26 | NUR ---
Patient was in MRI for study from 1015 to 1115. Discharge Note: IKE BUSH Discharge instructions and discharge home medications reviewed with Patient and a copy given. All questions have been answered and understanding verbalized. The following instructions and handouts were given: implanted port instructions and adult moderate sedation Discontinued lines and drains: Peripheral IV intact. Patient discharged to Home or Self Care withSpousevia Wheelchair
--- NOTE | 2020-07-10 12:14 | RAD ---
PROCEDURE: Fluoroscopically and ultrasound-guided placement of left internal jugular tunnel central v enous catheter with port (Bard PowerPort, Groshong tip ). Clinical Indication: Lung cancer Discussion: The risks and benefits of the procedure were discussed with the patient and/or their branch sales and service representative. Informed consent was obtained. The patient was brought to the fluoroscopy suite and placed in supine position. A time out procedure was performed. The right neck and chest were prepped and draped using maximum sterile barrier technique including th e use of: Current guideline approved cutaneous antisepsis, a large sterile sheet to establish a steri le field. Additionally the corrugated box machine operator wore a hat, mask, sterile gloves, a sterile gown during the proce dure as well as practiced acceptable hand hygiene prior to placing the port. Ultrasound-guided access: Ultrasound evaluation showed the left jugular vein to be patent and compre ssible. 1 % lidocaine with epinephrine was administered to the skin and subcutaneous tissues overlyin g the left neck and chest. Under direct ultrasound guidance a single wall puncture was made followed by tract dilation and placement of a sheath. An ultrasound image was saved and sent to PACS. Next, an incision was made in an infraclavicular location and a pocket created. The catheter was tunneled b etween the pocket and the venotomy site. The catheter was advanced through the peel away sheath, und er fluoroscopic guidance, such that it's tip was in the mid right atrium. The catheter was connected to the port reservoir. The port was accessed and found to flush and aspirate normally. The reservoir was then placed into the subcutaneous pocket. The wound was closed in layers using 4-0 Vicryl suture. Dermabond was applied overlying the wound, and venotomy site. The patient tolerated procedure withou t immediate complication. Sedation: Conscious sedation was performed for 30 minutes. Sedation was carried out 30 while the pat ient was continually monitored by a member of the Radiology nursing staff. Continual cardiopulmonary monitoring was carried out during the procedure. The patient tolerated the procedure well and there were no immediate complications. Fluoroscopy time: 0.7 mins Dose area product 1 Gycm2 Impression: Successful ultrasound and fluoroscopically guided placement of left internal jugular tunn el central venous catheter with port (Bard PowerPort, Groshong tip). Electronically signed by: Rj Ash MD (07/10/2020 12:12 PM) [id number]
--- NOTE | 2020-07-10 12:14 | RAD ---
PROCEDURE: Fluoroscopically and ultrasound-guided placement of left internal jugular tunnel central v enous catheter with port (Bard PowerPort, Groshong tip ). Clinical Indication: Lung cancer Discussion: The risks and benefits of the procedure were discussed with the patient and/or their arborist representative. Informed consent was obtained. The patient was brought to the fluoroscopy suite and placed in supine position. A time out procedure was performed. The right neck and chest were prepped and draped using maximum sterile barrier technique including th e use of: Current guideline approved cutaneous antisepsis, a large sterile sheet to establish a steri le field. Additionally the welding machine operator helper gas wore a hat, mask, sterile gloves, a sterile gown during the proce dure as well as practiced acceptable hand hygiene prior to placing the port. Ultrasound-guided access: Ultrasound evaluation showed the left jugular vein to be patent and compre ssible. 1 % lidocaine with epinephrine was administered to the skin and subcutaneous tissues overlyin g the left neck and chest. Under direct ultrasound guidance a single wall puncture was made followed by tract dilation and placement of a sheath. An ultrasound image was saved and sent to PACS. Next, an incision was made in an infraclavicular location and a pocket created. The catheter was tunneled b etween the pocket and the venotomy site. The catheter was advanced through the peel away sheath, und er fluoroscopic guidance, such that it's tip was in the mid right atrium. The catheter was connected to the port reservoir. The port was accessed and found to flush and aspirate normally. The reservoir was then placed into the subcutaneous pocket. The wound was closed in layers using 4-0 Vicryl suture. Dermabond was applied overlying the wound, and venotomy site. The patient tolerated procedure withou t immediate complication. Sedation: Conscious sedation was performed for 30 minutes. Sedation was carried out 30 while the pat ient was continually monitored by a member of the Radiology nursing staff. Continual cardiopulmonary monitoring was carried out during the procedure. The patient tolerated the procedure well and there were no immediate complications. Fluoroscopy time: 0.7 mins Dose area product 1 Gycm2 Impression: Successful ultrasound and fluoroscopically guided placement of left internal jugular tunn el central venous catheter with port (Bard PowerPort, Groshong tip). Electronically signed by: Rj Ash MD (07/10/2020 12:12 PM) [id number]
== END 2020-07-10 11:42 | disposition home or self-care (01) ==
LOC: INTRAD 07:05
PROVIDERS: ATTEND Internal Medicine Hematology & Oncology
DX: Z45.2 Encounter for adjustment and management of vascular access device (principal); C34.90 Malignant neoplasm of unspecified part of unspecified bronchus or lung; E78.00 Pure hypercholesterolemia, unspecified; K21.9 Gastro-esophageal reflux disease without esophagitis; M06.9 Rheumatoid arthritis, unspecified; F32.9 Major depressive disorder, single episode, unspecified; Z87.440 Personal history of urinary (tract) infections; Z98.51 Tubal ligation status; Z98.890 Other specified postprocedural states; Z79.82 Long term (current) use of aspirin; Z79.899 Other long term (current) drug therapy; Z87.891 Personal history of nicotine dependence; Z88.8 Allergy status to other drugs, medicaments and biological substances
CPT/HCPCS: 36415; 36561; 76937; 77001; 85610; 99152; 99153; C1788; C1892; J0690; J2250; J3010; J3490

== ENCOUNTER → 2020-07-10 | Outpatient (CLI) | payer MEDICARE ==
[2020-06-02 12:53] VITALS: BP 99/65
[~2020-07-10] MED LIST changes: +GADOTERATE 5 MMOL/10ML VIAL. IVP ONE
--- NOTE | 2020-07-10 12:35 | RAD ---
MRI of the Brain without and with Contrast 07/02/2020 Clinical History: Lung cancer.. Technique: Unenhanced T1-weighted sagittal and axial, T2-weighted axial and coronal and FLAIR, gradie nt echo and diffusion-weighted axial images of the brain were obtained. After the intravenous adminis tration of 19 cc of CLARISCAN, enhanced T1-weighted axial, sagittal and coronal images of the brain w ere obtained. Findings: PET/CT scan dated 06/26/2020. Images from the study are degraded by patient motion. The ventricles and sulci are within normal limi ts in size and configuration. Patchy and several small scattered areas of increased signal intensity are seen within the periventricular and subcortical white matter of both cerebral hemispheres on the FLAIR and T2-weighted images consistent with areas of mild small vessel ischemic disease. A solitary expansile lesion is seen involving the medial superior right parietal bone. This measures 2.8 cm in greatest diameter. It demonstrates predominantly slightly increased signal intensity on the T1-weighted and T2-weighted images and enhances with contrast. It extends intracranially to abut the dura of the right parietal lobe. Dural enhancement is seen adjacent to this lesion. This area is not included on the patient's recent PET/CT scan. This lesion could represent a hemangioma versus a skul l metastasis. No additional skull lesion is seen. No acute parenchymal abnormality is noted. There is no MRI evidence of metastatic disease involving t he brain parenchyma. No extra-axial fluid collection is seen. There is no evidence of acute ischemia/ infarction. Mild because thickening is seen scattered throughout the paranasal sinuses. There are minimal bilater al mastoid effusions. Normal flow voids are seen within the major vascular structures surrounding the brain parenchyma. IMPRESSION: 1. There is no MRI evidence of metastatic disease involving the brain parenchyma. 2. 2.8 cm expansile lesion is seen involving the medial superior right parietal bone. This extends to abut the dura. Focal dural enhancement is seen involving the superior right parietal region. This ma ss could represent a hemangioma versus a skull metastasis. No additional skull lesion is seen. Electronically signed by: Ye Phillips MD (07/10/2020 12:33 PM) [id number]
== END ==
LOC: MRI 07:10
PROVIDERS: ATTEND Radiology Radiation Oncology
DX: C34.11 Malignant neoplasm of upper lobe, right bronchus or lung (principal)
CPT/HCPCS: 70553; A9575

== ENCOUNTER → 2020-07-28 | Outpatient (CLI) | payer MEDICARE ==
[2020-06-02 12:53] VITALS: BP 99/65
[~2020-07-28] MED LIST changes: -OMEP40CA45 PO; +OMEP40CA7 PO
--- NOTE | 2020-07-28 11:21 | RAD ---
INDICATION: Reason: METASTATIC SKULL LESION / Spl. Instructions: / History: . COMPARISON: MRI from July 10, 2020 TECHNIQUE: Axial CT images obtained through the head. One or more of the following individualized dose reduction techniques were utilized for this examinat ion: 1. Automated exposure control; 2. Adjustment of the mA and/or kV according to patient size; 3 . Use of iterative reconstruction technique. FINDINGS: Repeat demonstration of a lytic lesion at the calvarium on the right at the vertex. This measures 30 x 28 mm. This corresponds to the lesion seen on recent MRI. No acute intracranial hemorrhage. No hydrocephalus. Midline shift is not seen. Mild scattered foci of low attenuation within the white matter which is a common finding. IMPRESSION: * Lytic lesion within the calvarium on the right at the vertex is again seen. Again causes such as m etastatic disease or hemangioma are within the differential. There is a small component extending int o the adjacent soft tissues. Electronically signed by: Elroy Arias MD (07/28/2020 11:19 AM) [id number]
== END ==
LOC: CT 10:37
PROVIDERS: ATTEND Neurological Surgery
DX: R93.0 Abnormal findings on diagnostic imaging of skull and head, not elsewhere classified (principal)
CPT/HCPCS: 70450

== ENCOUNTER → 2020-08-03 | Outpatient (CLI) | payer MEDICARE ==
[2020-06-02 12:53] VITALS: BP 99/65
[~2020-08-03] MED LIST changes: +AMOX1TAB58 PO; +DOCU-148 PO; +GUAI400T78 PO; +HYDR-2761 PO; +OXYC1TAB20 PO
[2020-08-03 11:35] LABS: ALBUMIN 3.3 g/dL (3.4-5.0); ALBUMIN/GLOBULIN RATIO 0.8 (1.0-1.7); CALCIUM 7.9 mg/dL (8.5-10.1); GFR 57.1; POTASSIUM 3.6 mmol/L (3.5-5.1); TOTAL BILIRUBIN 0.3 mg/dL (0.2-1.0); TOTAL PROTEIN 7.6 g/dL (6.4-8.2)
[2020-08-03 11:38] LABS: BASO # 0.1 x10^3/uL (0.0-0.2); BASO % 1 % (0-3); EOS # 0.3 x10^3/uL (0.0-0.7); EOS % 6 % (0-3); HEMATOCRIT 38.2 % (36.0-47.0); HEMOGLOBIN 12.4 g/dL (12.0-15.5); LYMPH # 1.9 x10^3/uL (1.0-4.8); LYMPH % 34 % (24-48); MEAN CORPUSCULAR HEMOGLOBIN 30 pg (25-35); MEAN CORPUSCULAR HGB CONC 32 g/dL (31-37); MEAN CORPUSCULAR VOLUME 93 fL (79-100); MONO # 0.5 x10^3/uL (0.0-1.1); MONO % 10 % (0-9); NEUT # 2.7 x10^3/uL (1.8-7.7); NEUT % 49 % (31-73); PLATELET COUNT 220 x10^3/uL (140-400); RED BLOOD COUNT 4.12 x10^6/uL (3.50-5.40); RED CELL DISTRIBUTION WIDTH 14.2 % (11.5-14.5); WHITE BLOOD COUNT 5.5 x10^3/uL (4.0-11.0)
[2020-08-03 12:26] LABS: PROTHROMBIN TIME PATIENT 12.3 SEC (11.7-14.0)
== END ==
LOC: SURGPAT 10:11
PROVIDERS: ATTEND Neurological Surgery
DX: Z01.818 Encounter for other preprocedural examination (principal); D49.6 Neoplasm of unspecified behavior of brain; R93.0 Abnormal findings on diagnostic imaging of skull and head, not elsewhere classified
CPT/HCPCS: 36415; 80053; 85025; 85610; 85730; 87641

== ENCOUNTER → 2020-08-18 | Outpatient (CLI) | payer MEDICARE ==
[2020-08-11 11:00] VITALS: BP 134/46
[~2020-08-18] MED LIST changes: -DOCU-148 PO; +DOCU-153 PO
[2020-08-18 08:58] LABS: BASO % 0 % (0-3); EOS # 0.3 x10^3/uL (0.0-0.7); EOS % 5 % (0-3); HEMATOCRIT 35.4 % (36.0-47.0); HEMOGLOBIN 11.6 g/dL (12.0-15.5); LYMPH # 2.6 x10^3/uL (1.0-4.8); LYMPH % 39 % (24-48); MEAN CORPUSCULAR HEMOGLOBIN 30 pg (25-35); MEAN CORPUSCULAR HGB CONC 33 g/dL (31-37); MEAN CORPUSCULAR VOLUME 92 fL (79-100); MONO # 0.7 x10^3/uL (0.0-1.1); MONO % 10 % (0-9); NEUT # 3.1 x10^3/uL (1.8-7.7); NEUT % 46 % (31-73); PLATELET COUNT 323 x10^3/uL (140-400); RED BLOOD COUNT 3.87 x10^6/uL (3.50-5.40); RED CELL DISTRIBUTION WIDTH 14.3 % (11.5-14.5); WHITE BLOOD COUNT 6.8 x10^3/uL (4.0-11.0)
[2020-08-18 09:09] LABS: CALCIUM 8.4 mg/dL (8.5-10.1); CREATININE 1.1 mg/dL (0.6-1.0); GFR 51.2; POTASSIUM 3.9 mmol/L (3.5-5.1)
[2020-08-18 09:16] LABS: ALBUMIN 3.3 g/dL (3.4-5.0); ALBUMIN/GLOBULIN RATIO 0.6 (1.0-1.7); TOTAL BILIRUBIN 0.3 mg/dL (0.2-1.0); TOTAL PROTEIN 8.4 g/dL (6.4-8.2)
== END ==
LOC: ONCLAB 08:30
PROVIDERS: ATTEND Internal Medicine Hematology & Oncology
DX: C34.11 Malignant neoplasm of upper lobe, right bronchus or lung (principal)
CPT/HCPCS: 36415; 80053; 85025

== ENCOUNTER → 2020-08-25 | Outpatient (CLI) | payer MEDICARE ==
[2020-08-11 11:00] VITALS: BP 134/46
[2020-08-25 11:24] LABS: BASO # 0.1 x10^3/uL (0.0-0.2); BASO % 3 % (0-3); EOS # 0.4 x10^3/uL (0.0-0.7); EOS % 12 % (0-3); HEMATOCRIT 35.4 % (36.0-47.0); HEMOGLOBIN 11.3 g/dL (12.0-15.5); LYMPH # 1.2 x10^3/uL (1.0-4.8); LYMPH % 31 % (24-48); MEAN CORPUSCULAR HEMOGLOBIN 30 pg (25-35); MEAN CORPUSCULAR HGB CONC 32 g/dL (31-37); MEAN CORPUSCULAR VOLUME 93 fL (79-100); MONO # 0.3 x10^3/uL (0.0-1.1); MONO % 8 % (0-9); NEUT # 1.7 x10^3/uL (1.8-7.7); NEUT % 46 % (31-73); PLATELET COUNT 333 x10^3/uL (140-400); RED BLOOD COUNT 3.82 x10^6/uL (3.50-5.40); RED CELL DISTRIBUTION WIDTH 14.1 % (11.5-14.5); WHITE BLOOD COUNT 3.7 x10^3/uL (4.0-11.0)
[2020-08-25 11:57] LABS: CALCIUM 8.3 mg/dL (8.5-10.1); CREATININE 0.9 mg/dL (0.6-1.0); GFR 64.5; POTASSIUM 3.9 mmol/L (3.5-5.1)
[2020-08-25 12:01] LABS: ALBUMIN/GLOBULIN RATIO 0.7 (1.0-1.7); TOTAL BILIRUBIN 0.4 mg/dL (0.2-1.0); TOTAL PROTEIN 7.5 g/dL (6.4-8.2)
== END ==
LOC: ONCLAB 10:32
PROVIDERS: ATTEND Internal Medicine Hematology & Oncology
DX: C34.11 Malignant neoplasm of upper lobe, right bronchus or lung (principal)
CPT/HCPCS: 36415; 80053; 85025

== ENCOUNTER → 2020-09-01 | Outpatient (CLI) | payer MEDICARE ==
[2020-08-11 11:00] VITALS: BP 134/46
[2020-09-01 10:42] LABS: BASO # 0.1 x10^3/uL (0.0-0.2); BASO % 3 % (0-3); EOS # 0.2 x10^3/uL (0.0-0.7); EOS % 8 % (0-3); HEMATOCRIT 33.3 % (36.0-47.0); HEMOGLOBIN 10.8 g/dL (12.0-15.5); LYMPH # 0.8 x10^3/uL (1.0-4.8); LYMPH % 31 % (24-48); MEAN CORPUSCULAR HEMOGLOBIN 30 pg (25-35); MEAN CORPUSCULAR HGB CONC 33 g/dL (31-37); MEAN CORPUSCULAR VOLUME 91 fL (79-100); MONO # 0.2 x10^3/uL (0.0-1.1); MONO % 9 % (0-9); NEUT # 1.2 x10^3/uL (1.8-7.7); NEUT % 50 % (31-73); PLATELET COUNT 259 x10^3/uL (140-400); RED BLOOD COUNT 3.65 x10^6/uL (3.50-5.40); RED CELL DISTRIBUTION WIDTH 14.8 % (11.5-14.5); WHITE BLOOD COUNT 2.5 x10^3/uL (4.0-11.0)
[2020-09-01 10:57] LABS: CALCIUM 8.2 mg/dL (8.5-10.1); CREATININE 0.8 mg/dL (0.6-1.0); GFR 73.9; POTASSIUM 3.6 mmol/L (3.5-5.1)
[2020-09-01 11:07] LABS: ALBUMIN/GLOBULIN RATIO 0.7 (1.0-1.7); TOTAL BILIRUBIN 0.3 mg/dL (0.2-1.0); TOTAL PROTEIN 7.2 g/dL (6.4-8.2)
== END ==
LOC: ONCLAB 10:12
PROVIDERS: ATTEND Internal Medicine Hematology & Oncology
DX: C34.11 Malignant neoplasm of upper lobe, right bronchus or lung (principal)
CPT/HCPCS: 36415; 80053; 85025

== ENCOUNTER → 2020-09-07 | Outpatient (CLI) | payer MEDICARE ==
[2020-08-11 11:00] VITALS: BP 134/46
--- NOTE | 2020-09-07 11:58 | RAD ---
EXAM: CT head without contrast INDICATION: Post craniotomy incisional pain COMPARISON: CT head 08/07/2020 TECHNIQUE: Axial CT imaging through the head without intravenous contrast. One or more of the following individualized dose reduction techniques were utilized for this examinat ion: 1. Automated exposure control 2. Adjustment of the mA and/or kV according to patient size 3. Use of iterative reconstruction technique. FINDINGS: No intracranial hemorrhage or acute infarct. Gongora-white matter differentiation is maintained. The unique tricles and sulci are normal. There are surgical changes of right parietal skull lesion resection and mesh material, unchanged. Skin anthony have been removed. Right scalp fluid collection has resolved. There is mild residual soft tissue thickening at the vertex. Paranasal sinuses and mastoid air cells are clear. Globes and orbits are intact. IMPRESSION: 1. No acute intracranial abnormality. 2. Surgical changes of the right parietal bone. 3. The right scalp fluid collection has resolved. There is mild residual scalp thickening near the ve rtex. Electronically signed by: Lynette Harris MD (09/07/2020 11:56 AM) [id number]
== END ==
LOC: CT 11:04
PROVIDERS: ATTEND Neurological Surgery
DX: G89.18 Other acute postprocedural pain (principal); M79.89 Other specified soft tissue disorders
CPT/HCPCS: 70450

== ENCOUNTER → 2020-09-08 | Outpatient (CLI) | payer MEDICARE ==
[2020-08-11 11:00] VITALS: BP 134/46
[2020-09-08 11:02] LABS: BASO # 0.1 x10^3/uL (0.0-0.2); BASO % 1 % (0-3); EOS # 0.2 x10^3/uL (0.0-0.7); EOS % 3 % (0-3); HEMATOCRIT 34.4 % (36.0-47.0); HEMOGLOBIN 11.1 g/dL (12.0-15.5); LYMPH # 1.4 x10^3/uL (1.0-4.8); LYMPH % 14 % (24-48); MEAN CORPUSCULAR HEMOGLOBIN 30 pg (25-35); MEAN CORPUSCULAR HGB CONC 32 g/dL (31-37); MEAN CORPUSCULAR VOLUME 92 fL (79-100); MONO # 1.1 x10^3/uL (0.0-1.1); MONO % 11 % (0-9); NEUT # 7.1 x10^3/uL (1.8-7.7); NEUT % 71 % (31-73); PLATELET COUNT 203 x10^3/uL (140-400); RED BLOOD COUNT 3.74 x10^6/uL (3.50-5.40); RED CELL DISTRIBUTION WIDTH 15.7 % (11.5-14.5); WHITE BLOOD COUNT 9.9 x10^3/uL (4.0-11.0)
[2020-09-08 11:10] LABS: CALCIUM 8.2 mg/dL (8.5-10.1); GFR 57.1; POTASSIUM 3.4 mmol/L (3.5-5.1)
[2020-09-08 11:16] LABS: ALBUMIN/GLOBULIN RATIO 0.7 (1.0-1.7); TOTAL BILIRUBIN 0.2 mg/dL (0.2-1.0); TOTAL PROTEIN 7.1 g/dL (6.4-8.2)
== END ==
LOC: ONCLAB 10:17
PROVIDERS: ATTEND Internal Medicine Hematology & Oncology
DX: C34.11 Malignant neoplasm of upper lobe, right bronchus or lung (principal)
CPT/HCPCS: 36415; 80053; 85025

== ENCOUNTER → 2020-09-15 | Outpatient (CLI) | payer MEDICARE ==
[2020-08-11 11:00] VITALS: BP 134/46
[~2020-09-15] MED LIST changes: +DOCU-148 PO; -DOCU-153 PO
[2020-09-15 11:07] LABS: BASO # 0.1 x10^3/uL (0.0-0.2); BASO % 4 % (0-3); EOS # 0.2 x10^3/uL (0.0-0.7); EOS % 11 % (0-3); HEMATOCRIT 33.8 % (36.0-47.0); HEMOGLOBIN 11.1 g/dL (12.0-15.5); LYMPH # 0.6 x10^3/uL (1.0-4.8); LYMPH % 38 % (24-48); MEAN CORPUSCULAR HEMOGLOBIN 30 pg (25-35); MEAN CORPUSCULAR HGB CONC 33 g/dL (31-37); MEAN CORPUSCULAR VOLUME 91 fL (79-100); MONO # 0.2 x10^3/uL (0.0-1.1); MONO % 11 % (0-9); NEUT # 0.6 x10^3/uL (1.8-7.7); NEUT % 36 % (31-73); PLATELET COUNT 137 x10^3/uL (140-400); RED BLOOD COUNT 3.73 x10^6/uL (3.50-5.40); RED CELL DISTRIBUTION WIDTH 15.6 % (11.5-14.5)
[2020-09-15 11:12] LABS: WHITE BLOOD COUNT 1.5 x10^3/uL (4.0-11.0)
[2020-09-15 11:19] LABS: CALCIUM 8.3 mg/dL (8.5-10.1); CREATININE 0.9 mg/dL (0.6-1.0); GFR 64.5; POTASSIUM 3.8 mmol/L (3.5-5.1)
[2020-09-15 11:25] LABS: ALBUMIN/GLOBULIN RATIO 0.7 (1.0-1.7); TOTAL BILIRUBIN 0.3 mg/dL (0.2-1.0); TOTAL PROTEIN 7.3 g/dL (6.4-8.2)
[2020-09-15 12:15] LABS: % BANDS 2 % (0-9); % EOS 12 % (0-5); % LYMPHS 36 % (24-48); % MONOS 10 % (0-10); % SEGS 40 % (35-66)
[2020-09-15 12:16] LABS: PLT ESTIMATE DECREASED (ADEQUATE)
== END ==
LOC: ONCLAB 10:24
PROVIDERS: ATTEND Internal Medicine Hematology & Oncology
DX: C34.11 Malignant neoplasm of upper lobe, right bronchus or lung (principal)
CPT/HCPCS: 36415; 80053; 85007; 85025

== ENCOUNTER → 2020-09-22 | Outpatient (CLI) | payer MEDICARE ==
[2020-08-11 11:00] VITALS: BP 134/46
[2020-09-22 10:42] LABS: BASO % 1 % (0-3); EOS # 0.2 x10^3/uL (0.0-0.7); EOS % 7 % (0-3); HEMATOCRIT 33.8 % (36.0-47.0); HEMOGLOBIN 11.1 g/dL (12.0-15.5); LYMPH # 0.7 x10^3/uL (1.0-4.8); LYMPH % 21 % (24-48); MEAN CORPUSCULAR HEMOGLOBIN 30 pg (25-35); MEAN CORPUSCULAR HGB CONC 33 g/dL (31-37); MEAN CORPUSCULAR VOLUME 91 fL (79-100); MONO # 0.6 x10^3/uL (0.0-1.1); MONO % 18 % (0-9); NEUT # 1.7 x10^3/uL (1.8-7.7); NEUT % 54 % (31-73); PLATELET COUNT 203 x10^3/uL (140-400); RED BLOOD COUNT 3.74 x10^6/uL (3.50-5.40); RED CELL DISTRIBUTION WIDTH 16.7 % (11.5-14.5); WHITE BLOOD COUNT 3.2 x10^3/uL (4.0-11.0)
[2020-09-22 10:53] LABS: CALCIUM 8.3 mg/dL (8.5-10.1); GFR 57.1; POTASSIUM 3.5 mmol/L (3.5-5.1)
[2020-09-22 10:59] LABS: ALBUMIN 3.1 g/dL (3.4-5.0); ALBUMIN/GLOBULIN RATIO 0.8 (1.0-1.7); TOTAL BILIRUBIN 0.3 mg/dL (0.2-1.0); TOTAL PROTEIN 7.2 g/dL (6.4-8.2)
== END ==
LOC: ONCLAB 10:28
PROVIDERS: ATTEND Internal Medicine Hematology & Oncology
DX: C34.11 Malignant neoplasm of upper lobe, right bronchus or lung (principal)
CPT/HCPCS: 36415; 80053; 85025

== ENCOUNTER → 2020-09-29 | Outpatient (CLI) | payer MEDICARE ==
[2020-08-11 11:00] VITALS: BP 134/46
[2020-09-29 11:32] LABS: BASO % 1 % (0-3); EOS # 0.3 x10^3/uL (0.0-0.7); EOS % 6 % (0-3); HEMATOCRIT 33.9 % (36.0-47.0); HEMOGLOBIN 11.1 g/dL (12.0-15.5); LYMPH # 0.6 x10^3/uL (1.0-4.8); LYMPH % 12 % (24-48); MEAN CORPUSCULAR HEMOGLOBIN 29 pg (25-35); MEAN CORPUSCULAR HGB CONC 33 g/dL (31-37); MEAN CORPUSCULAR VOLUME 90 fL (79-100); MONO # 0.6 x10^3/uL (0.0-1.1); MONO % 13 % (0-9); NEUT # 3.1 x10^3/uL (1.8-7.7); NEUT % 68 % (31-73); PLATELET COUNT 217 x10^3/uL (140-400); RED BLOOD COUNT 3.75 x10^6/uL (3.50-5.40); RED CELL DISTRIBUTION WIDTH 16.8 % (11.5-14.5); WHITE BLOOD COUNT 4.6 x10^3/uL (4.0-11.0)
[2020-09-29 11:58] LABS: CALCIUM 8.4 mg/dL (8.5-10.1); CREATININE 1.1 mg/dL (0.6-1.0); GFR 51.2; POTASSIUM 3.8 mmol/L (3.5-5.1)
[2020-09-29 12:18] LABS: ALBUMIN 3.1 g/dL (3.4-5.0); ALBUMIN/GLOBULIN RATIO 0.7 (1.0-1.7); TOTAL BILIRUBIN 0.2 mg/dL (0.2-1.0); TOTAL PROTEIN 7.4 g/dL (6.4-8.2)
== END ==
LOC: ONCLAB 10:39
PROVIDERS: ATTEND Internal Medicine Hematology & Oncology
DX: C34.11 Malignant neoplasm of upper lobe, right bronchus or lung (principal)
CPT/HCPCS: 36415; 80053; 85025

== ENCOUNTER → 2020-10-05 | Outpatient (CLI) | payer MEDICARE ==
[2020-08-11 11:00] VITALS: BP 134/46
[2020-10-05 10:51] LABS: CALCIUM 8.5 mg/dL (8.5-10.1); GFR 57.1; POTASSIUM 3.8 mmol/L (3.5-5.1)
[2020-10-05 10:57] LABS: ALBUMIN 3.2 g/dL (3.4-5.0); ALBUMIN/GLOBULIN RATIO 0.7 (1.0-1.7); TOTAL BILIRUBIN 0.3 mg/dL (0.2-1.0); TOTAL PROTEIN 7.5 g/dL (6.4-8.2)
[2020-10-05 11:14] LABS: BASO % 3 % (0-3); EOS # 0.1 x10^3/uL (0.0-0.7); EOS % 5 % (0-3); HEMATOCRIT 34.5 % (36.0-47.0); HEMOGLOBIN 11.3 g/dL (12.0-15.5); LYMPH # 0.5 x10^3/uL (1.0-4.8); LYMPH % 35 % (24-48); MEAN CORPUSCULAR HEMOGLOBIN 29 pg (25-35); MEAN CORPUSCULAR HGB CONC 33 g/dL (31-37); MEAN CORPUSCULAR VOLUME 90 fL (79-100); MONO # 0.2 x10^3/uL (0.0-1.1); MONO % 13 % (0-9); NEUT # 0.6 x10^3/uL (1.8-7.7); NEUT % 45 % (31-73); PLATELET COUNT 240 x10^3/uL (140-400); RED BLOOD COUNT 3.84 x10^6/uL (3.50-5.40); RED CELL DISTRIBUTION WIDTH 17.4 % (11.5-14.5)
[2020-10-05 11:19] LABS: WHITE BLOOD COUNT 1.4 x10^3/uL (4.0-11.0)
[2020-10-05 12:30] LABS: % BANDS 2 % (0-9); % LYMPHS 48 % (24-48); % MONOS 6 % (0-10); % SEGS 44 % (35-66); PLT ESTIMATE ADEQUATE (ADEQUATE)
== END ==
LOC: ONCLAB 10:26
PROVIDERS: ATTEND Internal Medicine Hematology & Oncology
DX: C34.11 Malignant neoplasm of upper lobe, right bronchus or lung (principal)
CPT/HCPCS: 36415; 80053; 85007; 85025

== ENCOUNTER → 2020-10-08 | Outpatient (CLI) | payer MEDICARE ==
[2020-08-11 11:00] VITALS: BP 134/46
[~2020-10-08] MED LIST changes: +GADOTERATE 5 MMOL/10ML VIAL. IVP ONE
--- NOTE | 2020-10-08 11:43 | RAD ---
EXAMINATION: Magnetic resonance imaging (MRI) of the brain and brainstem without and with contrast 9:45 AM HISTORY: Lung adenocarcinoma; staging. TECHNIQUE: Multiplanar multi-weighted MRI of the brain and brainstem was performed without and with i ntravenous contrast using the general brain protocol. Contrast information: 17 mL Gadolinium based contrast COMPARISON: CT head 09/07/2020 FINDINGS: Right parietal craniotomy changes are identified.Scratch that there is a subgaleal fluid collection m easuring 8 mm in maximal thickness with simple fluid signal intensity. The superior sagittal sinus de monstrates normal venous flow. The corpus callosum is normal in shape and signal intensity. The post erior fossa is unremarkable. The pituitary and sella are normal. The brainstem and craniocervical j unction are unremarkable. Diffusion weighted images reveal no hyperintensities to suggest acute cerebral infarction. The suscep tibility weighted sequences reveal no evidence of acute or chronic hemorrhage. The ventricles are nor mal in size and position without evidence of hydrocephalus. There are no areas of abnormal contrast enhancement. The paranasal sinuses are normal. The visualized portions of the mastoids are unremarkable. The orbi ts appear normal. Normal flow voids are demonstrated in the carotid arteries and basilar artery. IMPRESSION: Right parietal craniotomy changes are identified with simple appearing subgaleal fluid collection. No extra-axial fluid collection is identified. No intracranial hemorrhage. No evidence for acute or subacute ischemia. No findings to suggest intracranial metastatic disease. Electronically signed by: Saira Payton MD (10/08/2020 11:41 AM) [id number]
== END ==
LOC: MRI 09:37
PROVIDERS: ATTEND Radiology Radiation Oncology
DX: G93.89 Other specified disorders of brain (principal); C34.11 Malignant neoplasm of upper lobe, right bronchus or lung; Z93.8 Other artificial opening status
CPT/HCPCS: 70553; A9575

== ENCOUNTER → 2020-10-20 | Outpatient (CLI) | payer MEDICARE ==
[2020-08-11 11:00] VITALS: BP 134/46
[~2020-10-20] MED LIST changes: -GADOTERATE 5 MMOL/10ML VIAL. IVP ONE
[2020-10-20 10:53] LABS: BASO # 0.1 x10^3/uL (0.0-0.2); BASO % 3 % (0-3); EOS # 0.2 x10^3/uL (0.0-0.7); EOS % 7 % (0-3); HEMATOCRIT 35.4 % (36.0-47.0); HEMOGLOBIN 11.6 g/dL (12.0-15.5); LYMPH # 1.1 x10^3/uL (1.0-4.8); LYMPH % 39 % (24-48); MEAN CORPUSCULAR HEMOGLOBIN 30 pg (25-35); MEAN CORPUSCULAR HGB CONC 33 g/dL (31-37); MEAN CORPUSCULAR VOLUME 91 fL (79-100); MONO # 0.5 x10^3/uL (0.0-1.1); MONO % 16 % (0-9); NEUT % 35 % (31-73); PLATELET COUNT 153 x10^3/uL (140-400); RED CELL DISTRIBUTION WIDTH 19.3 % (11.5-14.5); WHITE BLOOD COUNT 2.8 x10^3/uL (4.0-11.0)
[2020-10-20 11:02] LABS: CALCIUM 8.5 mg/dL (8.5-10.1); GFR 57.1; POTASSIUM 3.7 mmol/L (3.5-5.1)
[2020-10-20 11:10] LABS: ALBUMIN 3.1 g/dL (3.4-5.0); ALBUMIN/GLOBULIN RATIO 0.7 (1.0-1.7); TOTAL BILIRUBIN 0.3 mg/dL (0.2-1.0); TOTAL PROTEIN 7.5 g/dL (6.4-8.2)
== END ==
LOC: ONCLAB 10:23
PROVIDERS: ATTEND Physician Assistant
DX: C34.11 Malignant neoplasm of upper lobe, right bronchus or lung (principal)
CPT/HCPCS: 36415; 80053; 85025

== ENCOUNTER → 2020-10-27 | Outpatient (CLI) | payer MEDICARE ==
[2020-08-11 11:00] VITALS: BP 134/46
[2020-10-27 09:47] LABS: BASO % 1 % (0-3); EOS # 0.4 x10^3/uL (0.0-0.7); EOS % 13 % (0-3); HEMATOCRIT 34.6 % (36.0-47.0); HEMOGLOBIN 11.3 g/dL (12.0-15.5); LYMPH # 1.3 x10^3/uL (1.0-4.8); LYMPH % 43 % (24-48); MEAN CORPUSCULAR HEMOGLOBIN 30 pg (25-35); MEAN CORPUSCULAR HGB CONC 33 g/dL (31-37); MEAN CORPUSCULAR VOLUME 91 fL (79-100); MONO # 0.7 x10^3/uL (0.0-1.1); MONO % 22 % (0-9); NEUT # 0.6 x10^3/uL (1.8-7.7); NEUT % 20 % (31-73); PLATELET COUNT 159 x10^3/uL (140-400); RED CELL DISTRIBUTION WIDTH 19.5 % (11.5-14.5)
[2020-10-27 09:54] LABS: CALCIUM 8.4 mg/dL (8.5-10.1); CREATININE 0.9 mg/dL (0.6-1.0); GFR 64.5; POTASSIUM 3.6 mmol/L (3.5-5.1)
[2020-10-27 10:00] LABS: ALBUMIN/GLOBULIN RATIO 0.7 (1.0-1.7); TOTAL BILIRUBIN 0.3 mg/dL (0.2-1.0); TOTAL PROTEIN 7.3 g/dL (6.4-8.2)
[2020-10-27 10:29] LABS: % ATYL 2 % (0-0); % BANDS 5 % (0-9); % BASOS 1 % (0-3); % LYMPHS 34 % (24-48); % MONOS 21 % (0-10)
[2020-10-27 10:30] LABS: % EOS 6 % (0-5); % SEGS 31 % (35-66); PLT ESTIMATE ADEQUATE (ADEQUATE)
[2020-10-27 10:44] LABS: ANISOCYTOSIS SLIGHT; TEAR DROP CELLS OCC
== END ==
LOC: ONCLAB 08:48
PROVIDERS: ATTEND Physician Assistant
DX: C34.11 Malignant neoplasm of upper lobe, right bronchus or lung (principal)
CPT/HCPCS: 36415; 80053; 85007; 85025

== ENCOUNTER → 2020-11-03 | Outpatient (CLI) | payer MEDICARE ==
[2020-08-11 11:00] VITALS: BP 134/46
[~2020-11-03] MED LIST changes: +HEPARIN PF 500 UNIT/5 ML DISP.SYRIN. IVP ONE; +IOHEXOL 240 MG/ML 50ML VIAL. PO ONE; +IOHEXOL 300 MG/ML 100ML VIAL. IV ONE
--- NOTE | 2020-11-03 14:00 | RAD ---
CT of the chest, abdomen, and pelvis with contrast 11/03/2020 INDICATION: Follow-up lung cancer. COMPARISON STUDY: PET/CT June 26, 2020. CT angiography of the chest May 14, 2020. TECHNIQUE: Multidetector CT imaging of the chest, abdomen, and pelvis was performed following the adm inistration of IV contrast. FINDINGS: Interval decreased size of right upper lobe spiculated mass in the interim now measuring 1.9 x 1.4 cm (previously measuring 2.8 x 2.8 cm). Spiculated lesion in the more inferior right lower lobe has also decreased in size and prominence jose raul suring 1.1 x 0.9 cm on today's exam (previously measuring 1.7 x 1.7 cm). Right hilar adenopathy best seen on CT angiography of the chest June 13, 2020 is decreased in prominenc e since that time. At current, visualized mediastinal and right hilar nodes are not pathologically en larged by size criterion. No new or enlarging nodules or masses are identified. There is a left internal jugular port with tip at the cavoatrial junction. Heart size is normal. No pericardial effusion is seen. Bony thorax is intact. Liver, gallbladder, spl een, adrenal glands, pancreas, kidneys are unremarkable. There is no bowel obstruction. No evidence o f acute inflammatory change involving visualized bowel is identified. Evaluation of the pelvis is emery ited secondary to beam hardening artifact from left hip prosthesis. No focal abnormality is identifie d. No acute osseous changes are identified. IMPRESSION: 1. Interval decrease in size of the dominant right upper lung nodule as well as decreased size and sm aller right lower lobe nodule in the interim. Interval decreased prominence of right hilar lymph node s with respect to CTA from May 14, 2020. Findings consistent with a positive treatment response. 2. No acute intra-abdominal abnormality is identified CT DOSING PQRS STATEMENT: One or more of the following individualized dose reduction techniques were utilized for this examinat ion: 1. Automated exposure control 2. Adjustment of the mA and/or kV according to patient size 3. Use of iterative reconstruction technique Electronically signed by: Rj Ash MD (11/03/2020 1:19 PM) [id number]
== END ==
LOC: CT 10:24
PROVIDERS: ATTEND Internal Medicine Hematology & Oncology
DX: C34.11 Malignant neoplasm of upper lobe, right bronchus or lung (principal); R91.8 Other nonspecific abnormal finding of lung field; B97.29 Other coronavirus as the cause of diseases classified elsewhere; R59.0 Localized enlarged lymph nodes; Z96.642 Presence of left artificial hip joint
CPT/HCPCS: 71260; 74177; J1642; Q9966; Q9967

== ENCOUNTER → 2020-11-04 | Outpatient (CLI) | payer MEDICARE ==
[2020-08-11 11:00] VITALS: BP 134/46
[~2020-11-04] MED LIST changes: -HEPARIN PF 500 UNIT/5 ML DISP.SYRIN. IVP ONE; -IOHEXOL 240 MG/ML 50ML VIAL. PO ONE; -IOHEXOL 300 MG/ML 100ML VIAL. IV ONE
[2020-11-04 11:29] LABS: CALCIUM 8.3 mg/dL (8.5-10.1); CREATININE 0.9 mg/dL (0.6-1.0); GFR 64.5; POTASSIUM 3.3 mmol/L (3.5-5.1)
[2020-11-04 11:30] LABS: BASO % 2 % (0-3); EOS # 0.2 x10^3/uL (0.0-0.7); EOS % 8 % (0-3); LYMPH # 1.3 x10^3/uL (1.0-4.8); LYMPH % 51 % (24-48); MEAN CORPUSCULAR HEMOGLOBIN 30 pg (25-35); MEAN CORPUSCULAR HGB CONC 32 g/dL (31-37); MEAN CORPUSCULAR VOLUME 91 fL (79-100); MONO # 0.5 x10^3/uL (0.0-1.1); MONO % 18 % (0-9); NEUT # 0.5 x10^3/uL (1.8-7.7); PLATELET COUNT 247 x10^3/uL (140-400); RED BLOOD COUNT 3.73 x10^6/uL (3.50-5.40); WHITE BLOOD COUNT 2.5 x10^3/uL (4.0-11.0)
[2020-11-04 11:35] LABS: ALBUMIN/GLOBULIN RATIO 0.7 (1.0-1.7); TOTAL BILIRUBIN 0.2 mg/dL (0.2-1.0); TOTAL PROTEIN 7.3 g/dL (6.4-8.2)
[2020-11-04 12:18] LABS: NEUT % 21 % (31-73)
== END ==
LOC: ONCLAB 10:42
PROVIDERS: ATTEND Internal Medicine Hematology & Oncology
DX: C34.11 Malignant neoplasm of upper lobe, right bronchus or lung (principal); E03.2 Hypothyroidism due to medicaments and other exogenous substances; D70.1 Agranulocytosis secondary to cancer chemotherapy
CPT/HCPCS: 36415; 80053; 82607; 82746; 84443; 85025

== ENCOUNTER → 2020-11-12 | Outpatient (CLI) | payer MEDICARE ==
[2020-08-11 11:00] VITALS: BP 134/46
[2020-11-12 12:08] LABS: BASO # 0.1 x10^3/uL (0.0-0.2); BASO % 2 % (0-3); EOS # 0.3 x10^3/uL (0.0-0.7); EOS % 9 % (0-3); HEMATOCRIT 34.9 % (36.0-47.0); HEMOGLOBIN 11.1 g/dL (12.0-15.5); LYMPH # 1.1 x10^3/uL (1.0-4.8); LYMPH % 36 % (24-48); MEAN CORPUSCULAR HEMOGLOBIN 29 pg (25-35); MEAN CORPUSCULAR HGB CONC 32 g/dL (31-37); MEAN CORPUSCULAR VOLUME 92 fL (79-100); MONO # 0.4 x10^3/uL (0.0-1.1); MONO % 13 % (0-9); NEUT # 1.3 x10^3/uL (1.8-7.7); NEUT % 40 % (31-73); PLATELET COUNT 255 x10^3/uL (140-400); RED BLOOD COUNT 3.82 x10^6/uL (3.50-5.40); RED CELL DISTRIBUTION WIDTH 18.8 % (11.5-14.5); WHITE BLOOD COUNT 3.2 x10^3/uL (4.0-11.0)
[2020-11-12 12:29] LABS: CALCIUM 8.4 mg/dL (8.5-10.1); CREATININE 0.9 mg/dL (0.6-1.0); GFR 64.5; POTASSIUM 3.8 mmol/L (3.5-5.1)
[2020-11-12 12:36] LABS: ALBUMIN 3.1 g/dL (3.4-5.0); ALBUMIN/GLOBULIN RATIO 0.7 (1.0-1.7); TOTAL BILIRUBIN 0.3 mg/dL (0.2-1.0); TOTAL PROTEIN 7.4 g/dL (6.4-8.2)
== END ==
LOC: ONCLAB 10:32
PROVIDERS: ATTEND Internal Medicine Hematology & Oncology
DX: C34.11 Malignant neoplasm of upper lobe, right bronchus or lung (principal)
CPT/HCPCS: 36415; 80053; 85025

== ENCOUNTER → 2020-11-19 | Outpatient (CLI) | payer MEDICARE ==
[2020-08-11 11:00] VITALS: BP 134/46
[2020-11-19 11:24] LABS: BASO # 0.1 x10^3/uL (0.0-0.2); BASO % 2 % (0-3); EOS # 0.4 x10^3/uL (0.0-0.7); EOS % 9 % (0-3); HEMATOCRIT 35.1 % (36.0-47.0); HEMOGLOBIN 11.3 g/dL (12.0-15.5); LYMPH % 22 % (24-48); MEAN CORPUSCULAR HEMOGLOBIN 29 pg (25-35); MEAN CORPUSCULAR HGB CONC 32 g/dL (31-37); MEAN CORPUSCULAR VOLUME 91 fL (79-100); MONO # 0.5 x10^3/uL (0.0-1.1); MONO % 11 % (0-9); NEUT # 2.6 x10^3/uL (1.8-7.7); NEUT % 57 % (31-73); PLATELET COUNT 259 x10^3/uL (140-400); RED BLOOD COUNT 3.88 x10^6/uL (3.50-5.40); RED CELL DISTRIBUTION WIDTH 18.3 % (11.5-14.5); WHITE BLOOD COUNT 4.7 x10^3/uL (4.0-11.0)
[2020-11-19 11:37] LABS: CALCIUM 7.9 mg/dL (8.5-10.1); GFR 57.1; POTASSIUM 3.6 mmol/L (3.5-5.1)
[2020-11-19 11:44] LABS: ALBUMIN/GLOBULIN RATIO 0.7 (1.0-1.7); TOTAL BILIRUBIN 0.3 mg/dL (0.2-1.0); TOTAL PROTEIN 7.6 g/dL (6.4-8.2)
== END ==
LOC: ONCLAB 10:57
PROVIDERS: ATTEND Internal Medicine Hematology & Oncology
DX: C34.11 Malignant neoplasm of upper lobe, right bronchus or lung (principal)
CPT/HCPCS: 36415; 80053; 85025

== ENCOUNTER → 2020-11-24 | Outpatient (CLI) | payer MEDICARE ==
[2020-08-11 11:00] VITALS: BP 134/46
[2020-11-24 13:19] LABS: BASO # 0.1 x10^3/uL (0.0-0.2); BASO % 1 % (0-3); EOS # 0.5 x10^3/uL (0.0-0.7); EOS % 8 % (0-3); HEMATOCRIT 35.1 % (36.0-47.0); HEMOGLOBIN 11.3 g/dL (12.0-15.5); LYMPH # 1.5 x10^3/uL (1.0-4.8); LYMPH % 25 % (24-48); MEAN CORPUSCULAR HEMOGLOBIN 29 pg (25-35); MEAN CORPUSCULAR HGB CONC 32 g/dL (31-37); MEAN CORPUSCULAR VOLUME 90 fL (79-100); MONO # 0.7 x10^3/uL (0.0-1.1); MONO % 12 % (0-9); NEUT % 53 % (31-73); PLATELET COUNT 266 x10^3/uL (140-400); RED BLOOD COUNT 3.92 x10^6/uL (3.50-5.40); RED CELL DISTRIBUTION WIDTH 18.1 % (11.5-14.5); WHITE BLOOD COUNT 5.7 x10^3/uL (4.0-11.0)
[2020-11-24 13:32] LABS: CALCIUM 8.2 mg/dL (8.5-10.1); GFR 57.1; POTASSIUM 3.9 mmol/L (3.5-5.1)
[2020-11-24 13:37] LABS: ALBUMIN 2.9 g/dL (3.4-5.0); ALBUMIN/GLOBULIN RATIO 0.6 (1.0-1.7); TOTAL BILIRUBIN 0.3 mg/dL (0.2-1.0); TOTAL PROTEIN 7.9 g/dL (6.4-8.2)
== END ==
LOC: ONCLAB 12:35
PROVIDERS: ATTEND Physician Assistant
DX: C34.11 Malignant neoplasm of upper lobe, right bronchus or lung (principal)
CPT/HCPCS: 36415; 80053; 85025

== ENCOUNTER → 2020-12-04 | Outpatient (CLI) | payer MEDICARE ==
[2020-08-11 11:00] VITALS: BP 134/46
[2020-12-04 11:39] LABS: BASO % 1 % (0-3); EOS # 0.5 x10^3/uL (0.0-0.7); EOS % 8 % (0-3); HEMATOCRIT 30.7 % (36.0-47.0); HEMOGLOBIN 9.5 g/dL (12.0-15.5); LYMPH # 1.2 x10^3/uL (1.0-4.8); LYMPH % 22 % (24-48); MEAN CORPUSCULAR HEMOGLOBIN 27 pg (25-35); MEAN CORPUSCULAR HGB CONC 31 g/dL (31-37); MEAN CORPUSCULAR VOLUME 88 fL (79-100); MONO # 0.6 x10^3/uL (0.0-1.1); MONO % 10 % (0-9); NEUT # 3.3 x10^3/uL (1.8-7.7); NEUT % 59 % (31-73); PLATELET COUNT 271 x10^3/uL (140-400); RED BLOOD COUNT 3.49 x10^6/uL (3.50-5.40); RED CELL DISTRIBUTION WIDTH 17.8 % (11.5-14.5); WHITE BLOOD COUNT 5.6 x10^3/uL (4.0-11.0)
[2020-12-04 11:41] LABS: CALCIUM 6.7 mg/dL (8.5-10.1); CREATININE 0.7 mg/dL (0.6-1.0); GFR 86.2; POTASSIUM 3.3 mmol/L (3.5-5.1)
[2020-12-04 11:46] LABS: ALBUMIN 2.1 g/dL (3.4-5.0); ALBUMIN/GLOBULIN RATIO 0.5 (1.0-1.7); TOTAL BILIRUBIN 0.2 mg/dL (0.2-1.0); TOTAL PROTEIN 6.1 g/dL (6.4-8.2)
[2020-12-04 13:19] LABS: CALCIUM 7.8 mg/dL (8.5-10.1); CREATININE 0.9 mg/dL (0.6-1.0); GFR 64.5; POTASSIUM 3.8 mmol/L (3.5-5.1)
[2020-12-04 13:20] LABS: BASO % 1 % (0-3); EOS # 0.4 x10^3/uL (0.0-0.7); EOS % 7 % (0-3); HEMATOCRIT 32.2 % (36.0-47.0); HEMOGLOBIN 10.2 g/dL (12.0-15.5); LYMPH # 0.9 x10^3/uL (1.0-4.8); LYMPH % 14 % (24-48); MEAN CORPUSCULAR HEMOGLOBIN 28 pg (25-35); MEAN CORPUSCULAR HGB CONC 32 g/dL (31-37); MEAN CORPUSCULAR VOLUME 87 fL (79-100); MONO # 0.6 x10^3/uL (0.0-1.1); MONO % 9 % (0-9); NEUT # 4.3 x10^3/uL (1.8-7.7); NEUT % 69 % (31-73); PLATELET COUNT 276 x10^3/uL (140-400); RED BLOOD COUNT 3.69 x10^6/uL (3.50-5.40); RED CELL DISTRIBUTION WIDTH 18.4 % (11.5-14.5); WHITE BLOOD COUNT 6.2 x10^3/uL (4.0-11.0)
[2020-12-04 13:33] LABS: ALBUMIN 2.4 g/dL (3.4-5.0); ALBUMIN/GLOBULIN RATIO 0.5 (1.0-1.7); TOTAL BILIRUBIN 0.2 mg/dL (0.2-1.0); TOTAL PROTEIN 7.4 g/dL (6.4-8.2)
== END ==
LOC: ONCLAB 10:48
PROVIDERS: ATTEND Physician Assistant
DX: C34.11 Malignant neoplasm of upper lobe, right bronchus or lung (principal); D70.1 Agranulocytosis secondary to cancer chemotherapy
CPT/HCPCS: 36415; 80053; 85025

== ENCOUNTER → 2020-12-10 | Outpatient (CLI) | payer MEDICARE ==
[2020-08-11 11:00] VITALS: BP 134/46
[~2020-12-10] MED LIST changes: +ASPI-630 PO
[2020-12-10 13:22] LABS: BASO # 0.1 x10^3/uL (0.0-0.2); BASO % 1 % (0-3); EOS # 0.4 x10^3/uL (0.0-0.7); EOS % 5 % (0-3); HEMATOCRIT 32.4 % (36.0-47.0); HEMOGLOBIN 10.4 g/dL (12.0-15.5); LYMPH # 1.6 x10^3/uL (1.0-4.8); LYMPH % 22 % (24-48); MEAN CORPUSCULAR HEMOGLOBIN 28 pg (25-35); MEAN CORPUSCULAR HGB CONC 32 g/dL (31-37); MEAN CORPUSCULAR VOLUME 87 fL (79-100); MONO # 0.8 x10^3/uL (0.0-1.1); MONO % 10 % (0-9); NEUT # 4.5 x10^3/uL (1.8-7.7); NEUT % 62 % (31-73); PLATELET COUNT 324 x10^3/uL (140-400); RED BLOOD COUNT 3.73 x10^6/uL (3.50-5.40); RED CELL DISTRIBUTION WIDTH 18.5 % (11.5-14.5); WHITE BLOOD COUNT 7.3 x10^3/uL (4.0-11.0)
[2020-12-10 13:34] LABS: CREATININE 0.9 mg/dL (0.6-1.0); GFR 64.5; POTASSIUM 3.3 mmol/L (3.5-5.1)
[2020-12-10 13:40] LABS: ALBUMIN 2.6 g/dL (3.4-5.0); ALBUMIN/GLOBULIN RATIO 0.5 (1.0-1.7); TOTAL BILIRUBIN 0.2 mg/dL (0.2-1.0); TOTAL PROTEIN 7.9 g/dL (6.4-8.2)
== END ==
LOC: ONCLAB 12:59
PROVIDERS: ATTEND Internal Medicine Hematology & Oncology
DX: C34.11 Malignant neoplasm of upper lobe, right bronchus or lung (principal)
CPT/HCPCS: 36415; 80053; 85025

== ENCOUNTER → 2020-12-25 | Outpatient (CLI) | payer MEDICARE ==
[2020-08-11 11:00] VITALS: BP 134/46
--- NOTE | 2021-01-03 11:55 | RESP ---
DATE OF SERVICE: 12/25/2020 ATTENDING PHYSICIAN: Roel Villanueva MD. The patient underwent full pulmonary function testing dated 12/25/2020. FEV1/FVC ratio was 72%, FEV1 was 1.18 L at 60% of predicted. FVC was 1.63 liters at 65% of predicted. There was no significant bronchodilator response. Total lung capacity and residual volume was markedly elevated, suspect error in calculating the lung volumes. Diffusion capacity was decreased at 60% of predicted. IMPRESSION: 1. Lcxm-tr-vxzboywl obstructive airflow. 2. Unable to quantitate total lung capacity or residual volume. 3. The patient underwent a 6-minute walk, she required 2 liters of oxygen supplementation to maintain saturations above 90%, with exertion. TIFFANY DR: Deandre TID: [id number]
== END ==
LOC: PF 12:43
PROVIDERS: ATTEND Internal Medicine Pulmonary Disease
DX: C34.90 Malignant neoplasm of unspecified part of unspecified bronchus or lung (principal); R06.02 Shortness of breath
CPT/HCPCS: 94618; 94640; 94726; 94729; 94664

== ENCOUNTER → 2020-12-25 | Outpatient (CLI) | payer MEDICARE ==
[2020-08-11 11:00] VITALS: BP 134/46
[2020-12-25 11:48] LABS: BASO % 1 % (0-3); EOS # 0.4 x10^3/uL (0.0-0.7); EOS % 8 % (0-3); HEMATOCRIT 33.6 % (36.0-47.0); HEMOGLOBIN 10.4 g/dL (12.0-15.5); LYMPH # 1.2 x10^3/uL (1.0-4.8); LYMPH % 23 % (24-48); MEAN CORPUSCULAR HEMOGLOBIN 27 pg (25-35); MEAN CORPUSCULAR HGB CONC 31 g/dL (31-37); MEAN CORPUSCULAR VOLUME 86 fL (79-100); MONO # 0.6 x10^3/uL (0.0-1.1); MONO % 12 % (0-9); NEUT # 2.9 x10^3/uL (1.8-7.7); NEUT % 57 % (31-73); PLATELET COUNT 305 x10^3/uL (140-400); RED BLOOD COUNT 3.92 x10^6/uL (3.50-5.40); RED CELL DISTRIBUTION WIDTH 18.3 % (11.5-14.5); WHITE BLOOD COUNT 5.2 x10^3/uL (4.0-11.0)
[2020-12-25 12:06] LABS: ALBUMIN 2.6 g/dL (3.4-5.0); ALBUMIN/GLOBULIN RATIO 0.5 (1.0-1.7); CALCIUM 8.2 mg/dL (8.5-10.1); CREATININE 0.8 mg/dL (0.6-1.0); GFR 73.9; POTASSIUM 3.7 mmol/L (3.5-5.1); TOTAL BILIRUBIN 0.2 mg/dL (0.2-1.0); TOTAL PROTEIN 7.9 g/dL (6.4-8.2)
== END ==
LOC: PF 11:31
PROVIDERS: ATTEND Internal Medicine Hematology & Oncology
DX: C34.11 Malignant neoplasm of upper lobe, right bronchus or lung (principal); C79.31 Secondary malignant neoplasm of brain
CPT/HCPCS: 36415; 80053; 85025; 94060

== ENCOUNTER 2020-12-30 06:46 | Outpatient (CLI) | payer MEDICARE ==
[2020-12-30] VITALS (7 sets, daily range): BP systolic 92–113; BP diastolic 44–68
[~2020-12-30] VITALS: Ht 157.5 cm; Wt 82.0 kg
[~2020-12-30 06:46] MED LIST changes: -ASPI-630 PO
[2020-12-30] MEDS ORDERED: ASPI-630 PO (07:57)
[2020-12-30] MEDS ORDERED: TOCI162P SQ (07:57)
[2020-12-30] MEDS ORDERED: METH2.5T PO (07:57)
[2020-12-30 08:12] LABS: PROTHROMBIN TIME PATIENT 12.6 SEC (11.7-14.0)
[2020-12-30] MEDS ORDERED: IOHEXOL 240 MG/ML 50ML VIAL. ONE (08:19)
[2020-12-30] MEDS ORDERED: LIDOCAINE 1%/EPI 1:100,000 20 ML VIAL. ONE (08:29)
[2020-12-30] MEDS ORDERED: MIDAZOLAM HCL/PF 2 MG/2 ML VIAL. ONE (08:42)
[2020-12-30] MEDS ORDERED: fentaNYL PF VIAL 100 MCG/2 ML VIAL ONE (08:42)
[2020-12-30] MEDS ORDERED: fentaNYL PF VIAL 100 MCG/2 ML VIAL IV ONE (09:00)
[2020-12-30] MEDS ORDERED: LIDOCAINE 1%/EPI 1:100,000 20 ML VIAL. INJ ONE (09:00)
[2020-12-30] MEDS ORDERED: MIDAZOLAM HCL/PF 2 MG/2 ML VIAL. IV ONE (09:00)
--- NOTE | 2020-12-30 10:58 | NUR ---
Discharge Note: IKE BUSH Discharge instructions and discharge home medications reviewed with Patient and a copy given. All questions have been answered and understanding verbalized. The following instructions and handouts were given: implanted port instructions and adult moderate sedation Discontinued lines and drains: Peripheral IV intact. Patient discharged to Home or Self Care withSpousevia Wheelchair. [facility] for treatment.
--- NOTE | 2020-12-30 12:18 | RAD ---
11.17.21 PROCEDURE: 1. Removal of left internal jugular power port 2.Fluoroscopically and ultrasound-guided placement of right internal jugular tunnel central venous ca theter with port (Bard PowerPort, Groshong tip ). Clinical Indication: Lung cancer. Nonfunctional left internal jugular port Discussion: The risks and benefits of the procedure were discussed with the patient and/or their customer solutions representative. Informed consent was obtained. The patient was brought to the fluoroscopy suite and placed in supine position. A time out procedure was performed. The right neck and chest were prepped and draped using maximum sterile barrier technique including th e use of: Current guideline approved cutaneous antisepsis, a large sterile sheet to establish a steri le field. Additionally the pen or pencil assembly machine operator wore a hat, mask, sterile gloves, a sterile gown during the proce dure as well as practiced acceptable hand hygiene prior to placing the port. Ultrasound-guided access: Ultrasound evaluation showed the right jugular vein to be patent and compr essible. 1 % lidocaine with epinephrine was administered to the skin and subcutaneous tissues overlyi ng the right neck and chest. Under direct ultrasound guidance a single wall puncture was made followe d by tract dilation and placement of a sheath. An ultrasound image was saved and sent to PACS. Next, an incision was made in an infraclavicular location and a pocket created. The catheter was tunneled between the pocket and the venotomy site. The catheter was advanced through the peel away sheath, u nder fluoroscopic guidance, such that it's tip was in the mid right atrium. The catheter was connecte d to the port reservoir. The port was accessed and found to flush and aspirate normally. The reservoi r was then placed into the subcutaneous pocket. The wound was closed in layers using 3 Vicryl and 4- 0 Vicryl suture. Dermabond was applied overlying the wound, and venotomy site. A small incision was made overlying the left port reservoir. The reservoir and catheter removed intac t. Fluid was closed in layers using 4-0 Vicryl suture. Dermabond was applied to the overlying skin. Sedation: Conscious sedation was performed for 33 minutes. Sedation was carried out while the tien ent was continually monitored by a member of the Radiology nursing staff. Continual cardiopulmonary monitoring was carried out during the procedure. The patient tolerated the procedure well and there were no immediate complications. Fluoroscopy time: 1.2 mins DAP: 2 Gycm2 Impression: 1.Removal of left internal jugular port 2. Successful ultrasound and fluoroscopically guided placement of right internal jugular tunnel centr al venous catheter with port (Bard PowerPort, Groshong tip). Electronically signed by: Rj Ash MD (12/30/2020 12:16 PM) [id number]
== END 2020-12-30 11:04 | disposition home or self-care (01) ==
LOC: INTRAD 06:46
PROVIDERS: ATTEND Physician Assistant
DX: Z45.2 Encounter for adjustment and management of vascular access device (principal); C34.11 Malignant neoplasm of upper lobe, right bronchus or lung; E78.00 Pure hypercholesterolemia, unspecified; J44.9 Chronic obstructive pulmonary disease, unspecified; M19.90 Unspecified osteoarthritis, unspecified site; K21.9 Gastro-esophageal reflux disease without esophagitis; F32.9 Major depressive disorder, single episode, unspecified; Z87.440 Personal history of urinary (tract) infections; Z79.899 Other long term (current) drug therapy; Z98.890 Other specified postprocedural states; Z87.891 Personal history of nicotine dependence; Z79.82 Long term (current) use of aspirin
CPT/HCPCS: 36415; 36561; 36590; 76937; 77001; 85610; 87426; 99152; 99153; C1788; C1892; J0690; J2250; J3010; J3490

== ENCOUNTER → 2020-12-30 | Outpatient (CLI) | payer MEDICARE ==
[2020-12-30 10:30] VITALS: BP 92/44
[2020-12-30 12:06] LABS: BASO # 0.1 x10^3/uL (0.0-0.2); BASO % 1 % (0-3); EOS # 0.4 x10^3/uL (0.0-0.7); EOS % 9 % (0-3); HEMATOCRIT 33.3 % (36.0-47.0); HEMOGLOBIN 10.9 g/dL (12.0-15.5); LYMPH # 1.1 x10^3/uL (1.0-4.8); LYMPH % 23 % (24-48); MEAN CORPUSCULAR HEMOGLOBIN 28 pg (25-35); MEAN CORPUSCULAR HGB CONC 33 g/dL (31-37); MEAN CORPUSCULAR VOLUME 86 fL (79-100); MONO # 0.5 x10^3/uL (0.0-1.1); MONO % 11 % (0-9); NEUT # 2.6 x10^3/uL (1.8-7.7); NEUT % 56 % (31-73); PLATELET COUNT 252 x10^3/uL (140-400); RED BLOOD COUNT 3.88 x10^6/uL (3.50-5.40); RED CELL DISTRIBUTION WIDTH 18.2 % (11.5-14.5); WHITE BLOOD COUNT 4.6 x10^3/uL (4.0-11.0)
[2020-12-30 12:12] LABS: GFR 57.1; POTASSIUM 3.2 mmol/L (3.5-5.1)
[2020-12-30 12:19] LABS: ALBUMIN 2.6 g/dL (3.4-5.0); ALBUMIN/GLOBULIN RATIO 0.5 (1.0-1.7); TOTAL BILIRUBIN 0.1 mg/dL (0.2-1.0); TOTAL PROTEIN 7.4 g/dL (6.4-8.2)
== END ==
LOC: ONCLAB 15:52
PROVIDERS: ATTEND Internal Medicine Hematology & Oncology
DX: C34.11 Malignant neoplasm of upper lobe, right bronchus or lung (principal)
CPT/HCPCS: 36415; 80053; 85025

== ENCOUNTER 2021-01-01 17:30 | Inpatient (IN) | payer MEDICARE ==
[~2021-01-01] VITALS: Ht 157.5 cm; Wt 85.3 kg
[~2021-01-01 17:30] MED LIST changes: -HEPARIN PF 500 UNIT/5 ML DISP.SYRIN. IVP ONE; -IOHEXOL 240 MG/ML 50ML VIAL. PO ONE; -IOHEXOL 300 MG/ML 100ML VIAL. IV ONE
[2021-01-01 19:00] VITALS: BP 108/56
[2021-01-01] MEDS ORDERED: ALBUTEROL SULFATE 2.5 MG/3 ML NEBU. NEB PRN (19:00)
[2021-01-01] MEDS ORDERED: methylPREDNISolone SOD SUCC PF 125 MG/2 ML VIAL. IV ONE (19:00)
[2021-01-01] MEDS ORDERED: BUDESONIDE 0.5 MG/2 ML NEBU. NEB SCH (20:00)
[2021-01-01 20:41] LABS: BASO # 0.1 x10^3/uL (0.0-0.2); BASO % 1 % (0-3); EOS # 0.3 x10^3/uL (0.0-0.7); EOS % 5 % (0-3); HEMATOCRIT 30.7 % (36.0-47.0); HEMOGLOBIN 9.7 g/dL (12.0-15.5); LYMPH # 1.3 x10^3/uL (1.0-4.8); LYMPH % 22 % (24-48); MEAN CORPUSCULAR HEMOGLOBIN 27 pg (25-35); MEAN CORPUSCULAR HGB CONC 32 g/dL (31-37); MEAN CORPUSCULAR VOLUME 84 fL (79-100); MONO # 0.5 x10^3/uL (0.0-1.1); MONO % 9 % (0-9); NEUT # 3.8 x10^3/uL (1.8-7.7); NEUT % 63 % (31-73); PLATELET COUNT 222 x10^3/uL (140-400); RED BLOOD COUNT 3.63 x10^6/uL (3.50-5.40); RED CELL DISTRIBUTION WIDTH 17.9 % (11.5-14.5)
[2021-01-01] MEDS: TOPIRAMATE 25 MG TABLET. PO SCH (20:46)
[2021-01-01] MEDS: MONTELUKAST SODIUM 10 MG TABLET. PO SCH (20:46)
[2021-01-01] MEDS: GABAPENTIN 300 MG CAPSULE. PO SCH (20:47)
[2021-01-01] MEDS: cefTRIAXone IV Push 1 GM VIAL. IVP SCH (20:48)
[2021-01-01] MEDS: ENOXAPARIN 40 MG/0.4 ML SYRINGE. SQ SCH (20:48)
[2021-01-01 20:49] LABS: ALBUMIN 2.5 g/dL (3.4-5.0); ALBUMIN/GLOBULIN RATIO 0.6 (1.0-1.7); CALCIUM 7.8 mg/dL (8.5-10.1); CREATININE 0.9 mg/dL (0.6-1.0); GFR 64.5; POTASSIUM 3.6 mmol/L (3.5-5.1); TOTAL BILIRUBIN 0.2 mg/dL (0.2-1.0)
[2021-01-01] MEDS: AZITHROMYCIN 500 MG in IV NORMAL SALINE 250ML 250 ML IV SCH (20:49)
[2021-01-01] MEDS: DICLOFENAC SODIUM 1% TOPICAL GEL 100GM TUBE. TP SCH ×2 (20:50→21:00)
[2021-01-01] MEDS: oxyCODONE/APAP 10/325 1 TAB TABLET PO PRN (20:52)
[2021-01-01] MEDS ORDERED: IPRATRPIUM/ALBUTEROL 0.5/2.5MG 3 ML NEBU. NEB SCH (21:00)
[2021-01-01] MEDS ORDERED: NON FORMULARY ITEM (Budesonide/Formoterol Fumarate (Symbicort 160-4.5 Mcg Inhaler) 2 PUFF) IH SCH (21:00)
[2021-01-01] MEDS ORDERED: ALBUTEROL SULFATE 8GM INHALER. INH PRN (22:45)
[2021-01-01 23:00] VITALS: BP 110/55
[2021-01-01] MEDS: fentaNYL 12MCG/HR PATCH 1 PATCH PATCH.TD72 TD SCH (23:38)
[2021-01-02] VITALS (7 sets, daily range): BP systolic 102–114; BP diastolic 50–59
[2021-01-02] MEDS: PANTOPRAZOLE 40 MG TABLET.DR. PO SCH (07:02)
[2021-01-02] MEDS: DICLOFENAC SODIUM 1% TOPICAL GEL 100GM TUBE. TP SCH ×4 (09:00→21:00)
[2021-01-02] MEDS: ASPIRIN CHEWABLE 81 MG TABLET. PO SCH (09:07)
[2021-01-02] MEDS: methylPREDNISolone SOD SUCC PF 40 MG/ML VIAL. IV SCH ×2 (09:07→21:11)
[2021-01-02] MEDS: PARoxetine 20 MG TABLET PO SCH (09:07)
[2021-01-02] MEDS: TOPIRAMATE 25 MG TABLET. PO SCH ×2 (09:07→21:11)
[2021-01-02] MEDS: OMEGA-3 FATTY ACIDS/FISH OIL 1,000 MG CAPSULE. PO SCH (09:07)
[2021-01-02] MEDS: GABAPENTIN 300 MG CAPSULE. PO SCH ×3 (09:07→21:11)
[2021-01-02] MEDS: CETIRIZINE HCL 10 MG TABLET. PO SCH (09:07)
[2021-01-02] MEDS: FLUTICASONE/VILANTEROL 100/25 INHALER. INH SCH (09:08)
[2021-01-02] MEDS: LIDOCAINE (700MG/PATCH) PATCH. TP SCH (09:23)
[2021-01-02] MEDS: oxyCODONE/APAP 10/325 1 TAB TABLET PO PRN ×3 (09:24→19:28)
--- NOTE | 2021-01-02 12:38 | PDOC ---
PULMONARY PROGRESS NOTES DATE: 01/02/21 TIME: 12:37 Vitals Vital Signs Date Time Temp Pulse Resp B/P (MAP) Pulse Ox O2 Delivery O2 Flow Rate FiO2 01/02/21 12:14 94 Room Air 2.0 01/02/21 07:00 97.7 66 17 102/53 (69) 97.7 General: Alert Lungs: Clear Cardiovascular: S1, S2 Abdomen: Soft Extremities: No Edema Labs Laboratory Tests Test 01/01/21 20:30 White Blood Count 6.0 x10^3/uL (4.0-11.0) Red Blood Count 3.63 x10^6/uL (3.50-5.40) Hemoglobin 9.7 g/dL (12.0-15.5) Hematocrit 30.7 % (36.0-47.0) Mean Corpuscular Volume 84 fL (79-100) Mean Corpuscular Hemoglobin 27 pg (25-35) Mean Corpuscular Hemoglobin Concent 32 g/dL (31-37) Red Cell Distribution Width 17.9 % (11.5-14.5) Platelet Count 222 x10^3/uL (140-400) Neutrophils (%) (Auto) 63 % (31-73) Lymphocytes (%) (Auto) 22 % (24-48) Monocytes (%) (Auto) 9 % (0-9) Eosinophils (%) (Auto) 5 % (0-3) Basophils (%) (Auto) 1 % (0-3) Neutrophils # (Auto) 3.8 x10^3/uL (1.8-7.7) Lymphocytes # (Auto) 1.3 x10^3/uL (1.0-4.8) Monocytes # (Auto) 0.5 x10^3/uL (0.0-1.1) Eosinophils # (Auto) 0.3 x10^3/uL (0.0-0.7) Basophils # (Auto) 0.1 x10^3/uL (0.0-0.2) Sodium Level 138 mmol/L (136-145) Potassium Level 3.6 mmol/L (3.5-5.1) Chloride Level 104 mmol/L (98-107) Carbon Dioxide Level 24 mmol/L (21-32) Anion Gap 10 (6-14) Blood Urea Nitrogen 13 mg/dL (7-20) Creatinine 0.9 mg/dL (0.6-1.0) Estimated GFR (Cockcroft-Gault) 64.5 BUN/Creatinine Ratio 14 (6-20) Glucose Level 105 mg/dL (70-99) Calcium Level 7.8 mg/dL (8.5-10.1) Total Bilirubin 0.2 mg/dL (0.2-1.0) Aspartate Amino Transf (AST/SGOT) 24 U/L (15-37) Alanine Aminotransferase (ALT/SGPT) 18 U/L (14-59) Alkaline Phosphatase 68 U/L (46-116) Total Protein 7.0 g/dL (6.4-8.2) Albumin 2.5 g/dL (3.4-5.0) Albumin/Globulin Ratio 0.6 (1.0-1.7) Laboratory Tests Test 01/01/21 20:30 White Blood Count 6.0 x10^3/uL (4.0-11.0) Red Blood Count 3.63 x10^6/uL (3.50-5.40) Hemoglobin 9.7 g/dL (12.0-15.5) Hematocrit 30.7 % (36.0-47.0) Mean Corpuscular Volume 84 fL (79-100) Mean Corpuscular Hemoglobin 27 pg (25-35) Mean Corpuscular Hemoglobin Concent 32 g/dL (31-37) Red Cell Distribution Width 17.9 % (11.5-14.5) Platelet Count 222 x10^3/uL (140-400) Neutrophils (%) (Auto) 63 % (31-73) Lymphocytes (%) (Auto) 22 % (24-48) Monocytes (%) (Auto) 9 % (0-9) Eosinophils (%) (Auto) 5 % (0-3) Basophils (%) (Auto) 1 % (0-3) Neutrophils # (Auto) 3.8 x10^3/uL (1.8-7.7) Lymphocytes # (Auto) 1.3 x10^3/uL (1.0-4.8) Monocytes # (Auto) 0.5 x10^3/uL (0.0-1.1) Eosinophils # (Auto) 0.3 x10^3/uL (0.0-0.7) Basophils # (Auto) 0.1 x10^3/uL (0.0-0.2) Sodium Level 138 mmol/L (136-145) Potassium Level 3.6 mmol/L (3.5-5.1) Chloride Level 104 mmol/L (98-107) Carbon Dioxide Level 24 mmol/L (21-32) Anion Gap 10 (6-14) Blood Urea Nitrogen 13 mg/dL (7-20) Creatinine 0.9 mg/dL (0.6-1.0) Estimated GFR (Cockcroft-Gault) 64.5 BUN/Creatinine Ratio 14 (6-20) Glucose Level 105 mg/dL (70-99) Calcium Level 7.8 mg/dL (8.5-10.1) Total Bilirubin 0.2 mg/dL (0.2-1.0) Aspartate Amino Transf (AST/SGOT) 24 U/L (15-37) Alanine Aminotransferase (ALT/SGPT) 18 U/L (14-59) Alkaline Phosphatase 68 U/L (46-116) Total Protein 7.0 g/dL (6.4-8.2) Albumin 2.5 g/dL (3.4-5.0) Albumin/Globulin Ratio 0.6 (1.0-1.7) Medications Active Scripts Medications Dose Route/Sig Max Daily Dose Days Date Category Dose Instructions Methotrexate (Methotrexate Sodium) 2.5 Mg Tablet 6 Tab PO WEEKLY 12/30/20 Reported Actemra Actpen (Tocilizumab) 162 Mg/0.9 Ml Pen.injctr 162 Mg SQ QM 12/30/20 Reported Aspirin 81 Mg Tab.chew 1 Tab PO DAILY 12/30/20 Reported Percocet 10-325 Mg Tablet (Oxycodone/Acetaminophen) 1 Each Tablet 1 Tab PO PRN Q4HRS PRN 08/11/20 Rx Gabapentin 600 Mg Tablet 600 Mg PO TID 08/03/20 Reported Topiramate 50 Mg Tablet 1 Tab PO BID 30 05/14/20 Reported Omeprazole 40 Mg Capsule. 1 Cap PO DAILY 05/14/20 Reported Lidocaine PATCH (Lidocaine) 1 Each Adh..patch 1 Each TP DAILY 05/14/20 Reported REMOVE AFTER 12 HOURS Fish Oil 1,000 Mg Softgel (Randall-3 Fatty Acids/Fish Oil) 1 Each Capsule 2 Cap PO DAILY 30 05/14/20 Reported Voltaren (Diclofenac Sodium) 100 Gm Gel..gram. 1 Gm TP QID 30 05/14/20 Reported apply to affected area(s) Claritin (Loratadine) 10 Mg Tablet 1 Tab PO DAILY 30 05/14/20 Reported Symbicort 160-4.5 Mcg Inhaler (Budesonide/Formoterol Fumarate) 10.2 Gm Hfa.aer.ad 2 Puff IH BID 05/14/20 Reported Duoneb 0.5-3(2.5) Mg/3 Ml (Albuterol/Ipratropium) 3 Ml Ampul.neb 3 Ml NEB QID 05/14/20 Reported Proair Hfa (Albuterol Sulfate) 8.5 Gm Hfa.aer.ad 2 Puff IH PRN Q4-6HRS PRN 05/14/20 Reported Singulair Tablet (Montelukast Sodium) 10 Mg Tablet 10 Mg PO HS 05/02/13 Reported Paxil (Paroxetine Hcl) 20 Mg Tablet 20 Mg PO DAILY 05/02/13 Reported Calcium + Vitamin D3 Caplet (Calcium Carb & Cit/Vitamin D3) 1 Each Tablet.er 1 Each PO 05/02/13 Reported Impression . Full note dictated Treat for possible postobstructive Bronchoscopy on Monday DVT prophylaxis DOROTHY PEARL MD Jan 02, 2021 12:38
--- NOTE | 2021-01-02 12:40 | PDOC ---
Provider Note Date of Service: DATE: 01/02/21 TIME: 12:40 Provider Note H&P dictated.#[id number]. Justifications for Admission Other Justification MEGHAN REECE MD Jan 02, 2021 12:40
--- NOTE | 2021-01-02 13:18 | HP ---
DATE OF SERVICE: 01/02/2021 ADMIT DATE: 01/01/2021 PATIENT LOCATION: 510. REASON FOR ADMISSION TO THE HOSPITAL: Postobstructive pneumonia. The patient has a history of lung cancer. HISTORY OF PRESENT ILLNESS: The patient is a 55-year-old female. 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 The patient was seeing Oncology as well as Radiation Oncology. She also had a surgery done through the cranium, had a part of the cranium removed and the patient had radiation treatment to the chest as well as to the skull. She was getting outpatient chemotherapy, Keytruda and she was having more cough lately. She was hypoxic, was started on oxygen. CT scan shows worsening infiltrates in the lung with increasing in size of the metastasis, so the patient was admitted to the hospital for further investigation and treatment. PAST MEDICAL HISTORY: The patient has a history of arthritis, asthma, lung cancer, COPD, fibromyalgia. PAST SURGICAL HISTORY: Hip replacement on the left, tubal ligation, had a part of the cranium removed for metastasis and had a plate there. She also had a Port-A-Cath. FAMILY HISTORY: Positive for Alzheimer disease, diabetes, heart disease. SOCIAL HISTORY: Smoked for almost 38 years, quit 5 years ago. Denies alcohol. FAMILY HISTORY: As above. REVIEW OF SYSTEMS: Complains of cough, wheezing, more short of breath. She was not on oxygen, but she was placed on oxygen yesterday. PHYSICAL EXAMINATION: GENERAL: The patient is an elderly female in slight distress from coughing and wheezing. VITAL SIGNS: At the time of admission shows a temperature 98, pulse 97, respirations 20, blood pressure 108/56, 90% on room air. HEENT: The patient has a scar of craniotomy, had part of the skull removed and had a plate and looks fine. Pupils equal. Oral cavity, dentures. NECK: Supple. Thyroid not enlarged. JVD not elevated. CHEST: Symmetrical scar of Port-A-Cath. LUNGS: Bilateral wheezing, more so on the right side. ABDOMEN: Soft, bowel sounds present. No mass palpable. EXTERNAL GENITALIA: No Krishnamurthy. RECTUM: Deferred. EXTREMITIES: No calf tenderness, no edema. NEUROLOGIC: Moving extremities. No focal deficits noted. LABORATORY DATA: Shows a white count of 6, hemoglobin 9.7, platelets 222. Electrolytes: Sodium 138, potassium 3.6, chloride 104, bicarbonate 24, BUN 13, creatinine 0.9, glucose 105. LFTs normal. CT scan of the chest, abdomen and pelvis done yesterday shows a new right suprahilar, infrahilar mass-like consolidation, ground glass opacities, worsening in symptoms, stable 1.6 cm in the right lower lobe. FINAL IMPRESSION: 1. Postobstructive pneumonia. 2. 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 The patient is getting Keytruda. 3. Arthritis. 4. Hypertension. 5. General debility. PLAN: At this time, admit to hospital, started on Zithromax and Rocephin. Pulmonary consult. The patient is scheduled for bronchoscopy tomorrow, DVT prophylaxis and we will also have oncology followup patient. FRANCISCO J DR: Alec TID: [id number]
--- NOTE | 2021-01-02 13:46 | CONS ---
DATE OF CONSULTATION: 01/02/2021 ATTENDING PHYSICIAN: Blane Nino MD. REASON FOR CONSULTATION: The patient is seen in pulmonary consultation at the request of Dr. Nino for increasing shortness of breath, hypoxemic respiratory failure, abnormal CT chest. HISTORY OF PRESENT ILLNESS: The patient is a 55-year-old with metastatic carcinoma of the lungs. She had a right parietal bone, which was biopsied back in 08/06/2020. She underwent surgical intervention with biopsy of the brain lesion, bone flap, dura biopsy and subcutaneous tissue. The bone flap revealed evidence of metastatic adenocarcinoma. The patient has completed her course of radiation and chemotherapy. She is currently receiving Keytruda. She has a history of recent diagnosis of lung cancer, was admitted this time with increasing shortness of breath, cough, mucus mixed in with blood. She has been treated as an outpatient with some antibiotics and xfdj-mvm-[id number] medications with no significant improvement. The patient underwent a CT chest. I reviewed the CT, there is increasing infiltrates in the right upper lobe. There is a new right suprahilar and infrahilar mass-like consolidation surrounding ground glass opacities. There are stable irregular opacities in the right lower lobe measuring 1.6 cm. The patient denies fever or chills, no COVID-19 exposures. PAST MEDICAL HISTORY: Lung adenocarcinoma, T2 N2 M1 as described above. COPD, tobacco dependence in remission. She also has a history of rheumatoid arthritis, gastroesophageal reflux. PAST SURGICAL HISTORY: Previous left hip replacement in 2019. CURRENT MEDICATIONS: List was reviewed. FAMILY HISTORY: Positive for arthritis, heart disease and Alzheimer's. REVIEW OF SYSTEMS: CONSTITUTIONAL: No fever or chills. EYES: No change in visual acuity. HENT: Cough, mucus production. PULMONARY: As indicated above. CARDIOVASCULAR: No chest pain or pressure. GASTROINTESTINAL: No nausea, vomiting or diarrhea. GENITOURINARY: No dysuria or frequency. MUSCULOSKELETAL: No localized muscle aches or joint pains. SKIN: No new skin rashes. NEUROLOGIC: No headaches, diplopia or blurred vision. PHYSICAL EXAMINATION: VITAL SIGNS: Since admission, the patient has been on 2 liters, afebrile. HEENT: Eyes: The sclerae were nonicteric. NECK: Jugular venous distention was not elevated. No lymphadenopathy. CHEST: Full expansion. LUNGS: Rales bilaterally, right greater than left, wheezing on the right. CARDIOVASCULAR: Regular rate and rhythm with S1, S2, no S3. ABDOMEN: Soft. EXTREMITIES: No clubbing, cyanosis or pitting edema. NEUROLOGIC: The patient was awake, alert, following commands. A detailed neuro exam was not performed. LABORATORY DATA: White count was 6.0. Electrolytes were noted. CT as indicated above. IMPRESSION: 1. Acute hypoxemic respiratory failure, multifactorial. 2. Abnormal CT as indicated above revealing increasing infiltrate and consolidation in the right suprahilar and infrahilar region. 3. History of metastatic adenocarcinoma of the lung as described above. 4. Irregular nodular opacity in the right lower lobe. 5. Acute exacerbation of chronic obstructive pulmonary disease. 6. Possible postobstructive pneumonia. 7. Hemoptysis secondary to above. 8. Severe protein malnutrition, present upon admission. PLAN: 1. Continue current support with IV antibiotics and steroids. 2. We will proceed with a diagnostic and therapeutic bronchoscopy on Monday. 3. Nebulized treatments. 4. Pain management. 5. DVT prophylaxis. The above was discussed with Dr. Nino. MCKAY/CHRISSIE BAUTISTA: Deandre TID: [id number]
[2021-01-02] MEDS: cefTRIAXone IV Push 1 GM VIAL. IVP SCH (19:28)
[2021-01-02] MEDS: ENOXAPARIN 40 MG/0.4 ML SYRINGE. SQ SCH (21:11)
[2021-01-02] MEDS: MONTELUKAST SODIUM 10 MG TABLET. PO SCH (21:11)
[2021-01-02] MEDS: AZITHROMYCIN 500 MG in IV NORMAL SALINE 250ML 250 ML IV SCH (21:12)
[2021-01-03 03:25] VITALS: BP 131/67
[2021-01-03] MEDS: PANTOPRAZOLE 40 MG TABLET.DR. PO SCH (06:41)
[2021-01-03 07:00] VITALS: BP 119/74
[2021-01-03] MEDS: ASPIRIN CHEWABLE 81 MG TABLET. PO SCH (08:33)
[2021-01-03] MEDS: PARoxetine 20 MG TABLET PO SCH (08:34)
[2021-01-03] MEDS: TOPIRAMATE 25 MG TABLET. PO SCH ×2 (08:34→21:49)
[2021-01-03] MEDS: GABAPENTIN 300 MG CAPSULE. PO SCH ×3 (08:34→21:49)
[2021-01-03] MEDS: CETIRIZINE HCL 10 MG TABLET. PO SCH (08:34)
[2021-01-03] MEDS: OMEGA-3 FATTY ACIDS/FISH OIL 1,000 MG CAPSULE. PO SCH (08:34)
[2021-01-03] MEDS: methylPREDNISolone SOD SUCC PF 40 MG/ML VIAL. IV SCH ×2 (08:35→21:50)
[2021-01-03] MEDS: LIDOCAINE (700MG/PATCH) PATCH. TP SCH (08:38)
[2021-01-03] MEDS: oxyCODONE/APAP 10/325 1 TAB TABLET PO PRN ×3 (08:38→21:47)
--- NOTE | 2021-01-03 08:56 | PDOC ---
IM PROGRESS NOTES- Subjective Subjective Complaints of cough, congestion with thick mucus and constipation. Objective Vitals/I&O Vital Signs Date Time Temp Pulse Resp B/P (MAP) Pulse Ox O2 Delivery O2 Flow Rate FiO2 01/03/21 08:38 Nasal Cannula 2.0 01/03/21 07:00 97.8 66 16 119/74 (89) 94 97.8 I & O 01/02/21 01/02/21 01/03/21 15:00 23:00 07:00 Output Total 0 ml Balance 0 ml Physical Exam Physical Exam General Appearance - alert and in no distress Chest - decreased breath sounds at bases Heart - S1 and S2 normal Neurological - alert and oriented Musculoskeletal - generalized weakness Extremities - no edema Meds Current Medications Medications (Trade) Dose Ordered Sig/Mal Route PRN Reason Start Time Stop Time Status Last Admin Dose Admin Methylprednisolone Sodium Succinate (SOLU-Medrol 40MG VIAL) 40 mg Q12HR IV 01/02/21 09:00 01/03/21 08:35 Aspirin (Aspirin Chewable) 81 mg DAILY PO 01/02/21 09:00 01/03/21 08:33 Lidocaine (Lidoderm) 1 patch DAILY TP 01/02/21 09:00 01/03/21 08:38 Fish Oil (Fish Oil) 1 mg DAILY PO 01/02/21 09:00 01/03/21 08:34 Paroxetine HCl (Paxil) 20 mg DAILY PO 01/02/21 09:00 01/03/21 08:34 Cetirizine HCl (ZyrTEC) 10 mg DAILY PO 01/02/21 09:00 01/03/21 08:34 Fluticasone/ Vilanterol (Breo Ellipta 100-25 Mcg) 1 puff DAILY INH 01/02/21 09:00 01/02/21 09:08 Assessment Assessment 1. Postobstructive pneumonia. 2. 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 The patient is getting Keytruda. 3. Arthritis. 4. Hypertension. 5. General debility. PLAN: Continue Zithromax and Rocephin. Pulmonary consult. The patient is scheduled for bronchoscopy on Monday. Check labs in a.m. Plan Plan For more details regarding further plans, please refer to the orders. Justifications for Admission Other Justification KARIS VERAS MD Jan 03, 2021 08:56
[2021-01-03] MEDS: DICLOFENAC SODIUM 1% TOPICAL GEL 100GM TUBE. TP SCH ×4 (09:00→21:00)
[2021-01-03] MEDS: FLUTICASONE/VILANTEROL 100/25 INHALER. INH SCH (09:08)
--- NOTE | 2021-01-03 10:54 | PDOC ---
PULMONARY PROGRESS NOTES DATE: 01/03/21 TIME: 10:53 Subjective Patient with cough thick mucus mixed in with blood Vitals Vital Signs Date Time Temp Pulse Resp B/P (MAP) Pulse Ox O2 Delivery O2 Flow Rate FiO2 01/03/21 08:38 Nasal Cannula 2.0 01/03/21 07:00 97.8 66 16 119/74 (89) 94 97.8 ROS: No Nausea, No Chest Pain, No Abdominal Pain, No Increase Cough General: Alert Lungs: Wheezing, Crackles Cardiovascular: S1, S2 Abdomen: Soft Extremities: No Edema Labs Laboratory Tests Test 01/01/21 18:25 01/01/21 20:30 SARS-CoV-2 RNA (CARLOS) Negative (Negative) White Blood Count 6.0 x10^3/uL (4.0-11.0) Red Blood Count 3.63 x10^6/uL (3.50-5.40) Hemoglobin 9.7 g/dL (12.0-15.5) Hematocrit 30.7 % (36.0-47.0) Mean Corpuscular Volume 84 fL (79-100) Mean Corpuscular Hemoglobin 27 pg (25-35) Mean Corpuscular Hemoglobin Concent 32 g/dL (31-37) Red Cell Distribution Width 17.9 % (11.5-14.5) Platelet Count 222 x10^3/uL (140-400) Neutrophils (%) (Auto) 63 % (31-73) Lymphocytes (%) (Auto) 22 % (24-48) Monocytes (%) (Auto) 9 % (0-9) Eosinophils (%) (Auto) 5 % (0-3) Basophils (%) (Auto) 1 % (0-3) Neutrophils # (Auto) 3.8 x10^3/uL (1.8-7.7) Lymphocytes # (Auto) 1.3 x10^3/uL (1.0-4.8) Monocytes # (Auto) 0.5 x10^3/uL (0.0-1.1) Eosinophils # (Auto) 0.3 x10^3/uL (0.0-0.7) Basophils # (Auto) 0.1 x10^3/uL (0.0-0.2) Sodium Level 138 mmol/L (136-145) Potassium Level 3.6 mmol/L (3.5-5.1) Chloride Level 104 mmol/L (98-107) Carbon Dioxide Level 24 mmol/L (21-32) Anion Gap 10 (6-14) Blood Urea Nitrogen 13 mg/dL (7-20) Creatinine 0.9 mg/dL (0.6-1.0) Estimated GFR (Cockcroft-Gault) 64.5 BUN/Creatinine Ratio 14 (6-20) Glucose Level 105 mg/dL (70-99) Calcium Level 7.8 mg/dL (8.5-10.1) Total Bilirubin 0.2 mg/dL (0.2-1.0) Aspartate Amino Transf (AST/SGOT) 24 U/L (15-37) Alanine Aminotransferase (ALT/SGPT) 18 U/L (14-59) Alkaline Phosphatase 68 U/L (46-116) Total Protein 7.0 g/dL (6.4-8.2) Albumin 2.5 g/dL (3.4-5.0) Albumin/Globulin Ratio 0.6 (1.0-1.7) Medications Active Scripts Medications Dose Route/Sig Max Daily Dose Days Date Category Dose Instructions Methotrexate (Methotrexate Sodium) 2.5 Mg Tablet 6 Tab PO WEEKLY 12/30/20 Reported Actemra Actpen (Tocilizumab) 162 Mg/0.9 Ml Pen.injctr 162 Mg SQ QM 12/30/20 Reported Aspirin 81 Mg Tab.chew 1 Tab PO DAILY 12/30/20 Reported Percocet 10-325 Mg Tablet (Oxycodone/Acetaminophen) 1 Each Tablet 1 Tab PO PRN Q4HRS PRN 08/11/20 Rx Gabapentin 600 Mg Tablet 600 Mg PO TID 08/03/20 Reported Topiramate 50 Mg Tablet 1 Tab PO BID 30 05/14/20 Reported Omeprazole 40 Mg Capsule. 1 Cap PO DAILY 05/14/20 Reported Lidocaine PATCH (Lidocaine) 1 Each Adh..patch 1 Each TP DAILY 05/14/20 Reported REMOVE AFTER 12 HOURS Fish Oil 1,000 Mg Softgel ([place]-3 Fatty Acids/Fish Oil) 1 Each Capsule 2 Cap PO DAILY 30 05/14/20 Reported Voltaren (Diclofenac Sodium) 100 Gm Gel..gram. 1 Gm TP QID 30 05/14/20 Reported apply to affected area(s) Claritin (Loratadine) 10 Mg Tablet 1 Tab PO DAILY 30 05/14/20 Reported Symbicort 160-4.5 Mcg Inhaler (Budesonide/Formoterol Fumarate) 10.2 Gm Hfa.aer.ad 2 Puff IH BID 05/14/20 Reported Duoneb 0.5-3(2.5) Mg/3 Ml (Albuterol/Ipratropium) 3 Ml Ampul.neb 3 Ml NEB QID 05/14/20 Reported Proair Hfa (Albuterol Sulfate) 8.5 Gm Hfa.aer.ad 2 Puff IH PRN Q4-6HRS PRN 21 05/14/20 Reported Singulair Tablet (Montelukast Sodium) 10 Mg Tablet 10 Mg PO HS 05/02/13 Reported Paxil (Paroxetine Hcl) 20 Mg Tablet 20 Mg PO DAILY 05/02/13 Reported Calcium + Vitamin D3 Caplet (Calcium Carb & Cit/Vitamin D3) 1 Each Tablet.er 1 Each PO 05/02/13 Reported Impression . IMPRESSION: 1. Acute hypoxemic respiratory failure, multifactorial. 2. Abnormal CT as indicated above revealing increasing infiltrate and consolidation in the right suprahilar and infrahilar region. 3. metastatic adenocarcinoma of the lung status post craniotomy 4. Irregular nodular opacity in the right lower lobe. 5. Acute exacerbation of chronic obstructive pulmonary disease. 6. Possible postobstructive pneumonia. 7. Hemoptysis secondary to above. 8. Severe protein malnutrition, present upon admission. Plan . Updated 01/03 I reviewed the risk benefits and alternatives to bronchoscopy patient has consented Continue empiric antibiotics Nebulized treatments Pain management PLAN: 1. Continue current support with IV antibiotics and steroids. 2. We will proceed with a diagnostic and therapeutic bronchoscopy on Monday. 3. Nebulized treatments. 4. Pain management. 5. DVT prophylaxis. The above was discussed with Dr. Nino. DOROTHY PEARL MD Jan 03, 2021 10:54
[2021-01-03 11:00] VITALS: BP 131/59
[2021-01-03] MEDS: SENNOSIDES/DOCUSATE 8.6/50MG TABLET. PO SCH (11:11)
[2021-01-03 15:00] VITALS: BP 131/69
[2021-01-03 15:43] LABS: PROTHROMBIN TIME PATIENT 13.6 SEC (11.7-14.0)
[2021-01-03 19:00] VITALS: BP 130/61
[2021-01-03] MEDS: MONTELUKAST SODIUM 10 MG TABLET. PO SCH (21:49)
[2021-01-03] MEDS: cefTRIAXone IV Push 1 GM VIAL. IVP SCH (21:50)
[2021-01-03] MEDS: AZITHROMYCIN 500 MG in IV NORMAL SALINE 250ML 250 ML IV SCH (21:50)
[2021-01-03 23:04] VITALS: BP 120/64
[2021-01-04] VITALS (15 sets, daily range): BP systolic 100–199; BP diastolic 51–103
[2021-01-04] MEDS: PANTOPRAZOLE 40 MG TABLET.DR. PO SCH (07:30)
[2021-01-04] MEDS: methylPREDNISolone SOD SUCC PF 40 MG/ML VIAL. IV SCH ×2 (08:58→21:18)
[2021-01-04] MEDS ORDERED: EPINEPHrine 1 MG/ML VIAL INJ PRN (09:00)
[2021-01-04] MEDS: GABAPENTIN 300 MG CAPSULE. PO SCH ×3 (09:00→21:17)
[2021-01-04] MEDS ORDERED: LIDOCAINE 1% Multi-Dose 20 ML VIAL. INJ PRN (09:00)
[2021-01-04] MEDS ORDERED: LIDOCAINE 2% VISCOUS 100 ML BOTTLE. MM PRN (09:00)
[2021-01-04] MEDS ORDERED: LIDOCAINE 4% TOPICAL 50 ML SOLUTION. MM PRN (09:00)
[2021-01-04] MEDS ORDERED: ALBUTEROL SULFATE 2.5 MG/3 ML NEBU. NEB PRN (09:00)
[2021-01-04] MEDS: DICLOFENAC SODIUM 1% TOPICAL GEL 100GM TUBE. TP SCH ×4 (09:00→21:00)
[2021-01-04] MEDS: FLUTICASONE/VILANTEROL 100/25 INHALER. INH SCH (09:00)
--- NOTE | 2021-01-04 09:04 | PDOC ---
PULMONARY PROGRESS NOTES DATE: 01/04/21 TIME: 09:01 Subjective Patient with cough thick mucus mixed in with blood No increased shortness of breath. Remains on nasal cannula. Vitals Vital Signs Date Time Temp Pulse Resp B/P (MAP) Pulse Ox O2 Delivery O2 Flow Rate FiO2 01/04/21 07:00 97.9 53 18 199/66 (110) 97 Nasal Cannula 2.0 97.9 ROS: No Nausea, No Chest Pain, No Abdominal Pain, No Increase Cough General: Alert Lungs: Other (Decreased breath sounds) Cardiovascular: S1, S2 Abdomen: Soft Neuro Exam: Alert Extremities: No Edema Skin: Warm Labs Laboratory Tests Test 01/03/21 15: Prothrombin Time 13.6 SEC (11.7-14.0) Prothromb Time International Ratio 1.0 (0.8-1.1) Laboratory Tests Test 01/03/21 15: Prothrombin Time 13.6 SEC (11.7-14.0) Prothromb Time International Ratio 1.0 (0.8-1.1) Medications Active Scripts Medications Dose Route/Sig Max Daily Dose Days Date Category Dose Instructions Methotrexate (Methotrexate Sodium) 2.5 Mg Tablet 6 Tab PO WEEKLY 12/30/20 Reported Actemra Actpen (Tocilizumab) 162 Mg/0.9 Ml Pen.injctr 162 Mg SQ QM 12/30/20 Reported Aspirin 81 Mg Tab.chew 1 Tab PO DAILY 12/30/20 Reported Percocet 10-325 Mg Tablet (Oxycodone/Acetaminophen) 1 Each Tablet 1 Tab PO PRN Q4HRS PRN 08/11/20 Rx Gabapentin 600 Mg Tablet 600 Mg PO TID 08/03/20 Reported Topiramate 50 Mg Tablet 1 Tab PO BID 30 05/14/20 Reported Omeprazole 40 Mg Capsule. 1 Cap PO DAILY 05/14/20 Reported Lidocaine PATCH (Lidocaine) 1 Each Adh..patch 1 Each TP DAILY 05/14/20 Reported REMOVE AFTER 12 HOURS Fish Oil 1,000 Mg Softgel ([place]-3 Fatty Acids/Fish Oil) 1 Each Capsule 2 Cap PO DAILY 30 05/14/20 Reported Voltaren (Diclofenac Sodium) 100 Gm Gel..gram. 1 Gm TP QID 30 05/14/20 Reported apply to affected area(s) Claritin (Loratadine) 10 Mg Tablet 1 Tab PO DAILY 30 05/14/20 Reported Symbicort 160-4.5 Mcg Inhaler (Budesonide/Formoterol Fumarate) 10.2 Gm Hfa.aer.ad 2 Puff IH BID 05/14/20 Reported Duoneb 0.5-3(2.5) Mg/3 Ml (Albuterol/Ipratropium) 3 Ml Ampul.neb 3 Ml NEB QID 05/14/20 Reported Proair Hfa (Albuterol Sulfate) 8.5 Gm Hfa.aer.ad 2 Puff IH PRN Q4-6HRS PRN 21 05/14/20 Reported Singulair Tablet (Montelukast Sodium) 10 Mg Tablet 10 Mg PO HS 05/02/13 Reported Paxil (Paroxetine Hcl) 20 Mg Tablet 20 Mg PO DAILY 05/02/13 Reported Calcium + Vitamin D3 Caplet (Calcium Carb & Cit/Vitamin D3) 1 Each Tablet.er 1 Each PO 05/02/[address] chest IMPRESSION: 1. New right suprahilar and infrahilar masslike consolidation with surrounding groundglass, the former of which obscures a previously demonstrated spiculated nodule within the right upper lobe. The imaging appearance favors changes due to interval radiation therapy. The possibility of superimposed consolidated pneumonia or underlying residual malignancy is not excluded. 2. Stable irregular nodular opacity within the right lower lobe measuring 1.6 cm, possibly infectious, inflammatory or neoplastic in etiology. There are new groundglass opacities throughout the remainder of both lower lungs which are likely due to atelectasis or infiltrate. 3. Interval removal of a left chest wall port catheter. There is a small hematoma or seroma and focus of gas within the port reservoir site. There is a new right port catheter with the tip in the right atrium. Electronically signed by: Eleni Bob MD (01/01/2021 11:48 AM) [id number] Impression . IMPRESSION: 1. Acute hypoxemic respiratory failure, multifactorial. 2. Abnormal CT as indicated above revealing increasing infiltrate and consolidation in the right suprahilar and infrahilar region. Likely postobstructive pneumonia. 3. metastatic adenocarcinoma of the lung status post craniotomy 4. Irregular nodular opacity in the right lower lobe. 5. Acute exacerbation of chronic obstructive pulmonary disease. 6. Possible postobstructive pneumonia. 7. Hemoptysis secondary to above. 8. Severe protein malnutrition, present upon admission. Plan . Updated 01/04 I reviewed the risk benefits and alternatives to bronchoscopy patient has consented. She is scheduled at 10:30 AM today. We will do a diagnostic bronchoscopy. If endobronchial tumor is seen, no need for further biopsy. Will obtain lavage. Discussed with Dr. Nino Continue empiric antibiotics Nebulized treatments Pain management Further recommendations after bronchoscopy. YANE WILKINS MD Jan 04, 2021 09:04
[2021-01-04] MEDS: LIDOCAINE (700MG/PATCH) PATCH. TP SCH (09:08)
[2021-01-04] MEDS: fentaNYL 12MCG/HR PATCH 1 PATCH PATCH.TD72 TD SCH (09:08)
--- NOTE | 2021-01-04 09:28 | PDOC ---
PROGRESS NOTES Date of Service: DATE: 01/04/21 TIME: 09:26 Subjective Subjective feels better Objective Objective Vital Signs Date Time Temp Pulse Resp B/P (MAP) Pulse Ox O2 Delivery O2 Flow Rate FiO2 01/04/21 09:08 97 Nasal Cannula 1.0 01/04/21 07:00 97.9 53 18 199/66 (110) 97.9 Intake and Output 01/04/21 07:00 Output Total 0 ml Balance 0 ml Output Urine Total 0 ml # Voids 1 Physical Exam Abdomen: Soft Heart: Regular rate, Normal S1, Normal S2 Extremities: No clubbing General: Alert HEENT: Atraumatic Lungs: Other (wheezing rt lung) MUSCULOSKELETAL: No deformity, Other Neck: Supple Neuro: Normal speech Psych/Mental Status: Mental status NL Skin: No breakdown Assessment Assessment 1. Postobstructive pneumonia. 2. 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 The patient is getting Keytruda. 3. Arthritis. 4. Hypertension. 5. General debility. PLAN: bronchoscope today spoke with pulmonary spoke with oncology Continue Zithromax and Rocephin. Comment Review of Relevant I have reviewed the following items edgardo (where applicable) has been applied. Labs Laboratory Tests Test 01/03/21 15:20 Prothrombin Time 13.6 SEC (11.7-14.0) Prothromb Time International Ratio 1.0 (0.8-1.1) Microbiology 01/03/21 Gram Stain Evaluation - Final, Resulted 01/03/21 Respiratory Culture - Preliminary, Resulted 01/02/21 Blood Culture - Preliminary, Resulted NO GROWTH AFTER 1 DAY Medications Current Medications Albuterol Sulfate (Ventolin Neb Soln) 2.5 mg PRN 1X PRN NEB SHORTNESS OF BREATH; Start 01/04/21 at 09:00; Stop 01/05/21 at 08:59 Epinephrine HCl (Adrenalin) 1 mg PRN 1X PRN INJ SEE COMMENTS; Start 01/04/21 at 09:00; Stop 01/05/21 at 08:59 Lidocaine HCl (Lidocaine 1% 20ml Vial) 20 ml PRN 1X PRN INJ SEE COMMENTS; Start 01/04/21 at 09:00; Stop 01/05/21 at 08:59 Lidocaine HCl (Lidocaine 2% Viscous) 100 ml PRN 1X PRN MM FOR PROCEDURE; Start 01/04/21 at 09:00; Stop 01/05/21 at 08:59 Lidocaine HCl (Lidocaine 4% Topical) 50 ml PRN 1X PRN MM SEE COMMENTS; Start 01/04/21 at 09:00; Stop 01/05/21 at 08:59 Senna/Docusate Sodium (Senna Plus) 2 tab [id number] PO Last administered on 01/03/21at 11:11; Start 01/03/21 at 10:15 Vitals/I & O Vital Sign - Last 24 Hours 01/03/21 01/03/21 01/03/21 01/03/21 11:00 11:14 15:00 15:07 Temp 98.4 98.1 98.4 98.1 Pulse 70 68 Resp 18 18 B/P (MAP) 131/59 (83) 131/69 (89) Pulse Ox 97 94 93 O2 Delivery Nasal Cannula Nasal Cannula Nasal Cannula Nasal Cannula O2 Flow Rate 1.0 2.0 1.0 2.0 01/03/21 01/03/21 01/03/21 01/03/21 16:11 19:00 20:00 21:47 Temp 98.0 98.0 Pulse 66 Resp 20 18 B/P (MAP) 130/61 (84) Pulse Ox 94 94 94 O2 Delivery Nasal Cannula Room Air Nasal Cannula Nasal Cannula O2 Flow Rate 2.0 2.0 1.0 01/03/21 01/03/21 01/04/21 01/04/21 22:17 23:04 03:19 07:00 Temp 97.4 98.0 97.9 97.4 98.0 97.9 Pulse 72 64 53 Resp 16 20 19 18 B/P (MAP) 120/64 (82) 133/66 (88) 199/66 (110) Pulse Ox 93 98 93 97 O2 Delivery Nasal Cannula Nasal Cannula Nasal Cannula Nasal Cannula O2 Flow Rate 1.0 2.0 01/04/21 09:08 Pulse Ox 97 O2 Delivery Nasal Cannula O2 Flow Rate 1.0 Intake and Output 01/03/21 01/03/21 01/04/21 15:00 23:00 07:00 Output Total 0 ml Balance 0 ml Justifications for Admission Other Justification MEGHAN REECE MD Jan 04, 2021 09:28
[2021-01-04] MEDS ORDERED: LIDOCAINE 2% VISCOUS 100 ML BOTTLE. ONE (09:49)
[2021-01-04] MEDS ORDERED: LIDOCAINE 1% Multi-Dose 20 ML VIAL. ONE (09:49)
[2021-01-04] MEDS ORDERED: LIDOCAINE 4% TOPICAL 50 ML SOLUTION. ONE (09:49)
[2021-01-04] MEDS ORDERED: EPINEPHrine 1 MG/ML VIAL ONE (09:49)
[2021-01-04] MEDS ORDERED: PROPOFOL 10 MG/ML (20ML) VIAL. IV ONE (10:25)
--- NOTE | 2021-01-04 10:55 | NUR ---
SW following. Discussed with RN, pt from home with , on a mix of 1L and room air, NPO. Pt had bronchoscopy scheduled for 10am this morning. COVID-19 negative. RN advised no SW needs at this time. SW will continue to follow.
--- NOTE | 2021-01-04 11:38 | OP ---
DATE OF SURGERY: 01/04/2021 BRONCHOSCOPY NOTE INDICATIONS: Abnormal CT chest, lung cancer, possible postobstructive pneumonia. DESCRIPTION OF PROCEDURE: Informed consent was obtained from the patient. All risks and benefits were explained. She agreed to proceed with the procedure. Sedation was with propofol used by anesthesia. Bronch was introduced through the right nostril. The upper airway was passed. Some thick light yellow secretion seen in the upper airway. Vocal cords move equally with respiration. Trachea was entered. The right lung was examined. There was slimy secretion seen at the opening of the right upper lobe and right middle lobe. No definite endobronchial lesion seen. There was very minimal extrinsic compression of the apical subsegment of the right upper lobe. There is also evidence of bronchomalacia as well. Left lung was examined. All the subsegments of left upper lobe, lingula and left lower lobe were examined. There was a clean mucoid secretion seen, which was thick and slimy in the lingula and opening of the left upper lobe. Saline irrigation done. All secretions were removed. No definite endobronchial lesion seen. Bronchoalveolar lavage performed from right upper lobe, right middle lobe and lingula and sent for appropriate studies. The patient tolerated the procedure well. IMPRESSION: 1. Thick slimy white secretions seen in the right upper lobe, right middle lobe and lingula and left upper lobe. 2. All secretions were removed. No definite endobronchial lesion seen. There may be very minimal extrinsic compression versus bronchomalacia involving the apical subsegment of the right upper lobe. 3. Bronchoalveolar lavage done from multiple subsegments. 4. No definite endobronchial lesion seen. 5. Follow the results of cultures. PETER/CELENA/TYREE DR: Marta TID: [id number]
[2021-01-04] MEDS: ASPIRIN CHEWABLE 81 MG TABLET. PO SCH (12:30)
[2021-01-04] MEDS: TOPIRAMATE 25 MG TABLET. PO SCH ×2 (12:30→21:15)
[2021-01-04] MEDS: SENNOSIDES/DOCUSATE 8.6/50MG TABLET. PO SCH (12:31)
[2021-01-04] MEDS: OMEGA-3 FATTY ACIDS/FISH OIL 1,000 MG CAPSULE. PO SCH (12:31)
[2021-01-04] MEDS: PARoxetine 20 MG TABLET PO SCH (12:32)
[2021-01-04] MEDS: CETIRIZINE HCL 10 MG TABLET. PO SCH (12:32)
[2021-01-04] MEDS: oxyCODONE/APAP 10/325 1 TAB TABLET PO PRN ×2 (12:41→21:15)
[2021-01-04] MEDS: MONTELUKAST SODIUM 10 MG TABLET. PO SCH (21:17)
[2021-01-04] MEDS: cefTRIAXone IV Push 1 GM VIAL. IVP SCH (21:18)
[2021-01-04] MEDS: AZITHROMYCIN 500 MG in IV NORMAL SALINE 250ML 250 ML IV SCH (21:19)
[2021-01-05 03:16] VITALS: BP 141/59
[2021-01-05 07:00] VITALS: BP 128/58
--- NOTE | 2021-01-05 08:35 | RAD ---
EXAM: Chest, single view. HISTORY: Pneumonia. Lung cancer. COMPARISON: 01/01/2021. FINDINGS: A frontal view of the chest obtained. There is right suprahilar masslike consolidation. The re is diffuse increased interstitial opacity. There is a small nodular opacity overlying the left upp er lobe. There is no pleural effusion or pneumothorax. The heart is normal in size. There is a right port catheter with the tip in the superior cavoatrial junction. IMPRESSION: 1. Right suprahilar masslike opacity due to previously demonstrated neoplasm or radiation changes. 2. Diffuse increased interstitial opacity likely due to chronic interstitial changes with superimpose d atelectasis. The possibility of interstitial infiltrate is not excluded. 3. Small nodular opacity overlying the left upper lobe likely due to aforementioned interstitial alfonso ges. Electronically signed by: Eleni Bob MD (01/05/2021 8:33 AM) [id number]
[2021-01-05] MEDS: TOPIRAMATE 25 MG TABLET. PO SCH (08:53)
[2021-01-05] MEDS: PANTOPRAZOLE 40 MG TABLET.DR. PO SCH (08:56)
[2021-01-05] MEDS: oxyCODONE/APAP 10/325 1 TAB TABLET PO PRN (08:56)
[2021-01-05] MEDS: CETIRIZINE HCL 10 MG TABLET. PO SCH (08:56)
[2021-01-05] MEDS: ASPIRIN CHEWABLE 81 MG TABLET. PO SCH (08:56)
[2021-01-05] MEDS: methylPREDNISolone SOD SUCC PF 40 MG/ML VIAL. IV SCH (08:57)
[2021-01-05] MEDS: PARoxetine 20 MG TABLET PO SCH (08:57)
[2021-01-05] MEDS: SENNOSIDES/DOCUSATE 8.6/50MG TABLET. PO SCH (08:57)
[2021-01-05] MEDS: DICLOFENAC SODIUM 1% TOPICAL GEL 100GM TUBE. TP SCH (08:58)
[2021-01-05] MEDS: LIDOCAINE (700MG/PATCH) PATCH. TP SCH (08:58)
[2021-01-05] MEDS: FLUTICASONE/VILANTEROL 100/25 INHALER. INH SCH (09:00)
[2021-01-05] MEDS ORDERED: OMEGA-3 FATTY ACIDS/FISH OIL 1,000 MG CAPSULE. PO SCH (09:00)
[2021-01-05] MEDS: GABAPENTIN 300 MG CAPSULE. PO SCH (09:00)
--- NOTE | 2021-01-05 09:32 | PDOC ---
PROGRESS NOTES Date of Service: DATE: 01/05/21 TIME: 09:32 Subjective Subjective feels good Objective Objective Vital Signs Date Time Temp Pulse Resp B/P (MAP) Pulse Ox O2 Delivery O2 Flow Rate FiO2 01/05/21 08:56 Room Air 01/05/21 07:00 98.1 62 18 128/58 (81) 95 98.1 01/04/21 20:00 1.0 Intake and Output 01/05/21 07:00 Intake Total 0 ml Balance 0 ml Intake Oral 0 ml # Voids 1 # Bowel Movements 1 Physical Exam Abdomen: Soft Heart: Regular rate, Normal S1, Normal S2 Extremities: No clubbing General: Alert HEENT: Atraumatic Lungs: Other (wheezing rt lung) MUSCULOSKELETAL: No deformity, Other Neck: Supple Neuro: Normal speech Psych/Mental Status: Mental status NL Skin: No breakdown Assessment Assessment 1. ? Postobstructive pneumonia. 2. 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 The patient is getting Keytruda. 3. Arthritis. 4. Hypertension. 5. General debility. PLAN:d/c home today bronchoscope - No definite endobronchial lesion seen. There may be very minimal extrinsic compression versus bronchomalacia involving the apical subsegment of the right upper lobe. spoke with pulmonary spoke with oncology d/c Zithromax and Rocephin. Comment Review of Relevant I have reviewed the following items edgardo (where applicable) has been applied. Labs Microbiology 01/04/21 - Final, Complete 01/02/21 Blood Culture - Preliminary, Resulted NO GROWTH AFTER 2 DAYS Medications Current Medications Epinephrine HCl (Adrenalin) 1 mg STK-MED ONCE .ROUTE ; Start 01/04/21 at 09:49; Stop 01/04/21 at 09:49; Status DC Fish Oil (Fish Oil) 1,000 mg DAILY PO Last administered on 01/05/21at 08:57; Start 01/05/21 at 09:00 Lidocaine HCl (Lidocaine 1% 20ml Vial) 20 ml STK-MED ONCE .ROUTE ; Start 01/04/21 at 09:49; Stop 01/04/21 at 09:49; Status DC Lidocaine HCl (Lidocaine 2% Viscous) 100 ml STK-MED ONCE .ROUTE ; Start 01/04/21 at 09:49; Stop 01/04/21 at 09:49; Status DC Lidocaine HCl (Lidocaine 4% Topical) 50 ml STK-MED ONCE .ROUTE ; Start 01/04/21 at 09:49; Stop 01/04/21 at 09:50; Status DC Propofol (Diprivan) 200 mg STK-MED ONCE IV ; Start 01/04/21 at 10:25; Stop 01/04/21 at 10:25; Status DC Vitals/I & O Vital Sign - Last 24 Hours 01/04/21 01/04/21 01/04/21 01/04/21 09:44 09:48 09:55 10:38 Temp 97.9 97.4 97.9 97.4 Pulse 55 81 Resp 20 22 B/P (MAP) 149/67 Pulse Ox 96 95 98 O2 Delivery Nasal Cannula Room Air Simple Mask O2 Flow Rate 1.0 01/04/21 01/04/21 01/04/21 01/04/21 10:53 11:08 11:15 11:30 Pulse 80 76 68 68 Resp 20 20 22 20 B/P (MAP) 111/66 110/57 138/78 (98) 116/61 (79) Pulse Ox 94 95 97 98 O2 Delivery Room Air Room Air Room Air Room Air 01/04/21 01/04/21 01/04/21 01/04/21 11:45 12:00 12:15 12:41 Pulse 69 70 60 B/P (MAP) 113/59 (77) 116/61 (79) 115/51 (72) Pulse Ox 98 O2 Delivery Room Air 01/04/21 01/04/21 01/04/21 01/04/21 12:45 13:15 13:30 14:00 Pulse 63 64 B/P (MAP) 128/61 (83) 138/78 (98) Pulse Ox 98 99 O2 Delivery Room Air Room Air 01/04/21 01/04/21 01/04/21 01/04/21 14:15 15:00 16:15 19:00 Temp 98.0 98.6 98.0 98.6 Pulse 77 75 73 74 Resp 18 18 B/P (MAP) 155/78 (103) 151/86 (107) 139/103 (115) 100/57 (71) Pulse Ox 99 96 O2 Delivery Room Air 01/04/21 01/04/21 01/04/21 01/04/21 20:00 21:15 21:45 23:12 Temp 97.7 97.7 Pulse 83 Resp 18 18 18 B/P (MAP) 116/51 (72) Pulse Ox 96 100 95 O2 Delivery Nasal Cannula Room Air Nasal Cannula Room Air O2 Flow Rate 1.0 01/05/21 01/05/21 01/05/21 03:16 07:00 08:56 Temp 97.9 98.1 97.9 98.1 Pulse 60 62 Resp 18 18 B/P (MAP) 141/59 (86) 128/58 (81) Pulse Ox 100 95 O2 Delivery Room Air Room Air Intake and Output 01/04/21 01/04/21 01/05/21 15:00 23:00 07:00 Intake Total 0 ml Balance 0 ml Justifications for Admission Other Justification MEGHAN REECE MD Jan 05, 2021 09:32
--- NOTE | 2021-01-05 10:21 | NUR ---
SW following. Discussed with RN, discharge order for home with self care. RN advised no SW needs.
--- NOTE | 2021-01-05 10:41 | PDOC ---
PULMONARY PROGRESS NOTES DATE: 01/05/21 TIME: 10:38 Subjective No increased shortness of breath. Remains on nasal cannula. Vitals Vital Signs Date Time Temp Pulse Resp B/P (MAP) Pulse Ox O2 Delivery O2 Flow Rate FiO2 01/05/21 08:56 Room Air 01/05/21 07:00 98.1 62 18 128/58 (81) 95 98.1 01/04/21 20:00 1.0 ROS: No Nausea, No Chest Pain, No Abdominal Pain, No Increase Cough General: Alert Lungs: Other (Decreased breath sounds) Cardiovascular: S1, S2 Abdomen: Soft Neuro Exam: Alert Extremities: No Edema Skin: Warm Labs Laboratory Tests Test 01/03/21 15:20 Prothrombin Time 13.6 SEC (11.7-14.0) Prothromb Time International Ratio 1.0 (0.8-1.1) Medications Active Scripts Medications Dose Route/Sig Max Daily Dose Days Date Category Dose Instructions Methotrexate (Methotrexate Sodium) 2.5 Mg Tablet 6 Tab PO WEEKLY 12/30/20 Reported Actemra Actpen (Tocilizumab) 162 Mg/0.9 Ml Pen.injctr 162 Mg SQ QM 12/30/20 Reported Aspirin 81 Mg Tab.chew 1 Tab PO DAILY 12/30/20 Reported Percocet 10-325 Mg Tablet (Oxycodone/Acetaminophen) 1 Each Tablet 1 Tab PO PRN Q4HRS PRN 08/11/20 Rx Gabapentin 600 Mg Tablet 600 Mg PO TID 08/03/20 Reported Topiramate 50 Mg Tablet 1 Tab PO BID 30 05/14/20 Reported Omeprazole 40 Mg Capsule.dr 1 Cap PO DAILY 05/14/20 Reported Lidocaine PATCH (Lidocaine) 1 Each Adh..patch 1 Each TP DAILY 05/14/20 Reported REMOVE AFTER 12 HOURS Fish Oil 1,000 Mg Softgel ([place]-3 Fatty Acids/Fish Oil) 1 Each Capsule 2 Cap PO DAILY 30 05/14/20 Reported Voltaren (Diclofenac Sodium) 100 Gm Gel..gram. 1 Gm TP QID 30 05/14/20 Reported apply to affected area(s) Claritin (Loratadine) 10 Mg Tablet 1 Tab PO DAILY 30 05/14/20 Reported Symbicort 160-4.5 Mcg Inhaler (Budesonide/Formoterol Fumarate) 10.2 Gm Hfa.aer.ad 2 Puff IH BID 4/1/21 Reported Duoneb 0.5-3(2.5) Mg/3 Ml (Albuterol/Ipratropium) 3 Ml Ampul.neb 3 Ml NEB QID 05/14/20 Reported Proair Hfa (Albuterol Sulfate) 8.5 Gm Hfa.aer.ad 2 Puff IH PRN Q4-6HRS PRN 21 05/14/20 Reported Singulair Tablet (Montelukast Sodium) 10 Mg Tablet 10 Mg PO HS 05/02/13 Reported Paxil (Paroxetine Hcl) 20 Mg Tablet 20 Mg PO DAILY 05/02/13 Reported Calcium + Vitamin D3 Caplet (Calcium Carb & Cit/Vitamin D3) 1 Each Tablet.er 1 Each PO 05/02/[address] chest IMPRESSION: 1. New right suprahilar and infrahilar masslike consolidation with surrounding groundglass, the former of which obscures a previously demonstrated spiculated nodule within the right upper lobe. The imaging appearance favors changes due to interval radiation therapy. The possibility of superimposed consolidated pneumonia or underlying residual malignancy is not excluded. 2. Stable irregular nodular opacity within the right lower lobe measuring 1.6 cm, possibly infectious, inflammatory or neoplastic in etiology. There are new groundglass opacities throughout the remainder of both lower lungs which are likely due to atelectasis or infiltrate. 3. Interval removal of a left chest wall port catheter. There is a small hematoma or seroma and focus of gas within the port reservoir site. There is a new right port catheter with the tip in the right atrium. Electronically signed by: Eleni Bob MD (01/01/2021 11:48 AM) [id number] Impression . IMPRESSION: 1. Acute hypoxemic respiratory failure, multifactorial. 2. Abnormal CT as indicated above revealing increasing infiltrate and consolidation in the right suprahilar and infrahilar region. Likely postobstructive pneumonia. 3. metastatic adenocarcinoma of the lung status post craniotomy 4. Irregular nodular opacity in the right lower lobe. 5. Acute exacerbation of chronic obstructive pulmonary disease. 6. Possible postobstructive pneumonia. 7. Hemoptysis secondary to above. 8. Severe protein malnutrition, present upon admission. Plan . Updated 01/05 Patient is a status post bronchoscopy. No definite endobronchial lesion seen. She has some mucous plugs that were removed. Cultures pending. Repeat chest x-ray today without any significant difference. I would recommend having a PET scan as an outpatient and follow-up with her oncologist. Discussed with Dr. Nino empiric antibiotics Nebulized treatments Pain management Okay to discharge home today to be followed by her oncologist Updated 01/04 I reviewed the risk benefits and alternatives to bronchoscopy patient has consented. She is scheduled at 10:30 AM today. We will do a diagnostic bronchoscopy. If endobronchial tumor is seen, no need for further biopsy. Will obtain lavage. Discussed with Dr. Nino Continue empiric antibiotics Nebulized treatments Pain management Further recommendations after bronchoscopy. YANE WILKINS MD Jan 05, 2021 10:41
[2021-01-05 11:00] VITALS: BP 121/55
--- NOTE | 2021-01-05 11:31 | NUR ---
Patient escorted out to main entrance by Chelita EGAN and all belongings by wheelchair. Patient attempted to removed the port central line herself. Educated patient on safety and port line.
--- NOTE | 2021-01-06 15:09 | PATHOLOGY ---
Note [facility] Accession Number: [id number] TESTS RESULT FLAG UNITS REF RANGE LAB Clinician Provided Cytology Information No. of containers..01 Other (Miscellaneous) Source: BAL RML,RUL,LINGULA DIAGNOSIS: BAL RML,RUL,LINGULA NEGATIVE FOR MALIGNANT CELLS. REACTIVE BRONCHIAL CELLS ARE PRESENT. REACTIVE SQUAMOUS CELLS ARE PRESENT. FUNGAL ORGANISMS ARE PRESENT. PULMONARY MACROPHAGES PRESENT, INDICATIVE OF LOWER RESPIRATORY TRACT SAMPLING. COMMENT, FUNGAL ORGANISM ARE LIKELY YVETTE COULD BE A CONTAMINANT. Signed out by: Kenney Echevarria MD, Pathologist NPI- [id number] Performed by: Aubree Valle, [facility]cher [facility] ([facility]) Gross description: 01 40ML, CLEAR, COLORLESS /LCS 01/05/2021 1854 Local FLAG LEGEND: L-Low Normal,H-High Normal,LL-Alert Low,HH-Alert High <-Panic Low,>-Panic High,A-Abnormal,AA-Critical Abnormal Performed at: [address] [place] [address] Kenney Echevarria MD, Specimen Comment: A courtesy copy of this report has been sent to [phone], [phone] Specimen Comment: [id number] Specimen Comment: Report sent to / DR REECE Specimen Comment: A duplicate report has been generated due to demographic updates. Performed at: [address] [place] [address] [address], [place], [place] [id number] MD Kenney Echevarria MD Phone: [phone]
--- NOTE | 2021-01-10 21:25 | PDOC ---
Provider Note Date of Service: DATE: 01/10/21 TIME: 21:25 Provider Note Discharge summary dictated.#[id number]. Justifications for Admission Other Justification MEGHAN REECE MD Jan 10, 2021 21:25
--- NOTE | 2021-01-10 21:43 | DS ---
DATE OF DISCHARGE: 01/05/2021 REASON FOR ADMISSION TO THE HOSPITAL: Bronchospasm. The patient has a history of lung cancer, rule out postoperative possible postoperative pneumonia. CONSULTATIONS: Martha Booker MD PROCEDURES DONE: Bronchoscopy. HOSPITAL COURSE: The patient is a 55-year-old female. Patient has a history of adenocarcinoma of the right lung which is metastasis to the skull, retroperitoneal bone. The patient had received radiation and chemotherapy. The patient is getting chemotherapy outpatient and the patient was having more short of breath recently, requiring oxygen and when I saw her in the office, she had severe bronchospasm, mostly right side and also CT scan done one day prior to this admission shows new lesions in the right upper lung. The patient was admitted to the hospital to rule out obstruction of the lung cancer, postoperative pneumonia. The patient was given IV antibiotics, IV Solu-Medrol, breathing treatments. COVID test was negative. The patient had a bronchoscopy, thick slimy white secretions in the right upper lobe, right middle lobe and the left upper lobe. All secretions were removed. No definite endobronchial lesions seen. Bronchomalacia may be right upper lobe and cultures came back negative except colonization with Jennyfer. The patient was feeling fine. No fever. White count was normal and the patient had a CT scan done a couple of days prior to this admission, which shows an infrahilar mass-like consolidation with surrounding ground glass. Patient received 5 days of IV antibiotics and the patient was discharged home pending final culture reports. FINAL DIAGNOSES: 1. Severe bronchospasm secondary to bronchomalacia and lot of secretions. Secretions was removed with the bronchoscopy. No endobronchial lesion. 2. CT scan shows a possible new lesions in the right lung. 3. Adenomatous Ca of the lung with metastasis to the cranium. 4. Smoking history. 5. Rheumatoid arthritis. The patient is getting chemotherapy outpatient. The patient was discharged home. Finish 5 days of antibiotics and looks like his pathology came back negative for endobronchial lesions and possible contamination with colonization with yeast and we will follow up in outpatient. JEFF DR: Alec TID: [id number] MTDD
== END 2021-01-05 11:31 | disposition home or self-care (01) | DRG 180 ==
LOC: 5 NORTH 17:30
PROVIDERS: ADMIT Internal Medicine; ATTEND Internal Medicine
PROC: 0B9C8ZX Drainage of Right Upper Lung Lobe, Via Natural or Artificial Opening Endoscopic, Diagnostic (ICD-10-PCS; 2021-01-04)
PROC: 0B9D8ZX Drainage of Right Middle Lung Lobe, Via Natural or Artificial Opening Endoscopic, Diagnostic (ICD-10-PCS; 2021-01-04)
PROC: 0B9H8ZX Drainage of Lung Lingula, Via Natural or Artificial Opening Endoscopic, Diagnostic (ICD-10-PCS; principal; 2021-01-04 11:00)
DX: C34.90 Malignant neoplasm of unspecified part of unspecified bronchus or lung (principal); J18.9 Pneumonia, unspecified organism; E43 Unspecified severe protein-calorie malnutrition; J96.01 Acute respiratory failure with hypoxia; C79.51 Secondary malignant neoplasm of bone; J44.0 Chronic obstructive pulmonary disease with (acute) lower respiratory infection; J44.1 Chronic obstructive pulmonary disease with (acute) exacerbation; J98.11 Atelectasis; G93.9 Disorder of brain, unspecified; I10 Essential (primary) hypertension; J98.09 Other diseases of bronchus, not elsewhere classified; K59.00 Constipation, unspecified; M06.9 Rheumatoid arthritis, unspecified; Z82.0 Family history of epilepsy and other diseases of the nervous system; M19.90 Unspecified osteoarthritis, unspecified site; Z83.3 Family history of diabetes mellitus; Z85.118 Personal history of other malignant neoplasm of bronchus and lung; Z87.891 Personal history of nicotine dependence; Z96.642 Presence of left artificial hip joint; K21.9 Gastro-esophageal reflux disease without esophagitis; Z68.34 Body mass index [BMI] 34.0-34.9, adult; Z88.8 Allergy status to other drugs, medicaments and biological substances; Z20.822 Contact with and (suspected) exposure to COVID-19
CPT/HCPCS: 31622; 36415; 71045; 80053; 85025; 85610; 87040; 87070; 87106; 87205; 88112; 88312; 94640; J0456; J0696; J1650; J2704; J2920; J2930; J3490; J7050; U0003; U0005; G0378; J7030; J7613

== ENCOUNTER → 2021-01-01 | Outpatient (CLI) | payer MEDICARE ==
[2020-12-30 10:30] VITALS: BP 92/44
[~2021-01-01] MED LIST changes: +ASPI-630 PO; +HEPARIN PF 500 UNIT/5 ML DISP.SYRIN. IVP ONE; +IOHEXOL 240 MG/ML 50ML VIAL. PO ONE; +IOHEXOL 300 MG/ML 100ML VIAL. IV ONE
--- NOTE | 2021-01-01 11:50 | RAD ---
EXAM: Chest, abdomen and pelvis CT with intravenous contrast. HISTORY: Lung cancer restaging. TECHNIQUE: Computed tomographic images of the chest, abdomen and pelvis were obtained following the a dministration of intravenous contrast. Multiplanar reformatting was performed. *One or more of the following individualized dose reduction techniques were utilized for this examina tion: 1. Automated exposure control. 2. Adjustment of the mA and/or kV according to patient size. 3. Use of iterative reconstruction technique. COMPARISON: 11/03/2020. FINDINGS: Chest: There is right suprahilar masslike consolidation with surrounding groundglass, new c ompared to the prior exam. The previously demonstrated spiculated nodule in this location is obscured . The main regions of consolidation measuring approximately 6.2 cm and 6.4 cm and result in attenuati on of the traversing bronchi. There is new mild medial superior left paramediastinal soft tissue dens ity likely due to scarring. There is new right infrahilar masslike opacity measuring 2.8 cm and stabl e adjacent right lower lobe irregular opacity measuring 1.6 cm. There is no surrounding multifocal gr oundglass opacity within both lungs. There is no pleural effusion or pneumothorax. The heart is normal in size. There has been removal of a left chest wall port catheter and placement of a new right chest wall port catheter. The catheter tip is within the right atrium. There is a smal l loculated fluid collection containing gas within the left superior chest wall port reservoir site l ikely due to a hematoma or seroma. No pathologically enlarged mediastinal lymph node is seen. The rig ht hilar lymph nodes are obscured due to the aforementioned masslike density. There are few calcified granulomas. Abdomen and pelvis: No hepatic lesion is seen. The gallbladder, pancreas, spleen, adrenal glands and kidneys are unremarkable. There is no appendicitis. There is no bowel obstruction. There is distal co lonic diverticulosis. The bladder and uterus are partially obscured due to metallic artifact from a l eft hip arthroplasty. There is aortic and aortic branch vessel atherosclerosis. No mesenteric or retr operitoneal lymphadenopathy is seen. There is degenerative change involving the right hip and sacroil iac joints. There are degenerative changes throughout the spine. There is no acute or suspicious osse ous lesion. IMPRESSION: 1. New right suprahilar and infrahilar masslike consolidation with surrounding groundglass, the forme r of which obscures a previously demonstrated spiculated nodule within the right upper lobe. The imag ing appearance favors changes due to interval radiation therapy. The possibility of superimposed cons olidated pneumonia or underlying residual malignancy is not excluded. 2. Stable irregular nodular opacity within the right lower lobe measuring 1.6 cm, possibly infectious , inflammatory or neoplastic in etiology. There are new groundglass opacities throughout the remainde r of both lower lungs which are likely due to atelectasis or infiltrate. 3. Interval removal of a left chest wall port catheter. There is a small hematoma or seroma and focus of gas within the port reservoir site. There is a new right port catheter with the tip in the right atrium. Electronically signed by: Eleni Bob MD (01/01/2021 11:48 AM) [id number]
== END ==
LOC: CT 10:38
PROVIDERS: ATTEND Physician Assistant
DX: C34.11 Malignant neoplasm of upper lobe, right bronchus or lung (principal); R91.1 Solitary pulmonary nodule; J84.10 Pulmonary fibrosis, unspecified; K57.30 Diverticulosis of large intestine without perforation or abscess without bleeding; M16.11 Unilateral primary osteoarthritis, right hip; M46.1 Sacroiliitis, not elsewhere classified; M47.819 Spondylosis without myelopathy or radiculopathy, site unspecified
CPT/HCPCS: 71260; 74177; J1642; Q9966; Q9967

== ENCOUNTER → 2021-01-14 | Outpatient (CLI) | payer MEDICARE ==
[2021-01-05 11:00] VITALS: BP 121/55
[2021-01-14 10:33] LABS: BASO % 1 % (0-3); EOS # 0.3 x10^3/uL (0.0-0.7); EOS % 5 % (0-3); HEMATOCRIT 34.5 % (36.0-47.0); HEMOGLOBIN 10.8 g/dL (12.0-15.5); LYMPH # 1.2 x10^3/uL (1.0-4.8); LYMPH % 23 % (24-48); MEAN CORPUSCULAR HEMOGLOBIN 27 pg (25-35); MEAN CORPUSCULAR HGB CONC 31 g/dL (31-37); MEAN CORPUSCULAR VOLUME 85 fL (79-100); MONO # 0.7 x10^3/uL (0.0-1.1); MONO % 13 % (0-9); NEUT % 58 % (31-73); PLATELET COUNT 248 x10^3/uL (140-400); RED BLOOD COUNT 4.06 x10^6/uL (3.50-5.40); WHITE BLOOD COUNT 5.1 x10^3/uL (4.0-11.0)
[2021-01-14 10:45] LABS: CALCIUM 8.1 mg/dL (8.5-10.1); GFR 57.1; POTASSIUM 3.7 mmol/L (3.5-5.1)
[2021-01-14 10:52] LABS: ALBUMIN 2.7 g/dL (3.4-5.0); ALBUMIN/GLOBULIN RATIO 0.6 (1.0-1.7); TOTAL BILIRUBIN 0.2 mg/dL (0.2-1.0); TOTAL PROTEIN 7.3 g/dL (6.4-8.2)
== END ==
LOC: ONCLAB 10:14
PROVIDERS: ATTEND Physician Assistant
DX: C34.11 Malignant neoplasm of upper lobe, right bronchus or lung (principal)
CPT/HCPCS: 36415; 80053; 85025

== ENCOUNTER → 2021-02-02 | Outpatient (CLI) | payer MEDICARE ==
[2021-01-05 11:00] VITALS: BP 121/55
[2021-02-02 12:38] LABS: BASO # 0.1 x10^3/uL (0.0-0.2); BASO % 2 % (0-3); EOS # 0.2 x10^3/uL (0.0-0.7); EOS % 5 % (0-3); HEMATOCRIT 36.1 % (36.0-47.0); HEMOGLOBIN 11.3 g/dL (12.0-15.5); LYMPH # 1.9 x10^3/uL (1.0-4.8); LYMPH % 43 % (24-48); MEAN CORPUSCULAR HEMOGLOBIN 26 pg (25-35); MEAN CORPUSCULAR HGB CONC 31 g/dL (31-37); MEAN CORPUSCULAR VOLUME 84 fL (79-100); MONO # 0.6 x10^3/uL (0.0-1.1); MONO % 13 % (0-9); NEUT # 1.6 x10^3/uL (1.8-7.7); NEUT % 37 % (31-73); PLATELET COUNT 235 x10^3/uL (140-400); RED BLOOD COUNT 4.31 x10^6/uL (3.50-5.40); RED CELL DISTRIBUTION WIDTH 18.3 % (11.5-14.5); WHITE BLOOD COUNT 4.4 x10^3/uL (4.0-11.0)
[2021-02-02 12:44] LABS: CALCIUM 8.2 mg/dL (8.5-10.1); CREATININE 0.8 mg/dL (0.6-1.0); GFR 73.9; POTASSIUM 3.7 mmol/L (3.5-5.1)
[2021-02-02 12:50] LABS: ALBUMIN/GLOBULIN RATIO 0.7 (1.0-1.7); TOTAL BILIRUBIN 0.2 mg/dL (0.2-1.0); TOTAL PROTEIN 7.5 g/dL (6.4-8.2)
== END ==
LOC: ONCLAB 12:10
PROVIDERS: ATTEND Physician Assistant
DX: C34.11 Malignant neoplasm of upper lobe, right bronchus or lung (principal)
CPT/HCPCS: 36415; 80053; 85025

== ENCOUNTER → 2021-02-15 | Outpatient (CLI) | payer MEDICARE ==
[2021-02-15 14:33] LABS: BASO # 0.1 x10^3/uL (0.0-0.2); BASO % 1 % (0-3); EOS # 0.1 x10^3/uL (0.0-0.7); EOS % 2 % (0-3); HEMATOCRIT 36.7 % (36.0-47.0); HEMOGLOBIN 11.4 g/dL (12.0-15.5); LYMPH # 2.8 x10^3/uL (1.0-4.8); LYMPH % 48 % (24-48); MEAN CORPUSCULAR HEMOGLOBIN 26 pg (25-35); MEAN CORPUSCULAR HGB CONC 31 g/dL (31-37); MEAN CORPUSCULAR VOLUME 83 fL (79-100); MONO # 0.7 x10^3/uL (0.0-1.1); MONO % 12 % (0-9); NEUT # 2.2 x10^3/uL (1.8-7.7); NEUT % 37 % (31-73); PLATELET COUNT 178 x10^3/uL (140-400); RED CELL DISTRIBUTION WIDTH 18.6 % (11.5-14.5); WHITE BLOOD COUNT 5.9 x10^3/uL (4.0-11.0)
[2021-02-15 14:41] LABS: CREATININE 0.9 mg/dL (0.6-1.0); GFR 64.5
[2021-02-15 14:46] LABS: ALBUMIN 2.9 g/dL (3.4-5.0); ALBUMIN/GLOBULIN RATIO 0.6 (1.0-1.7); TOTAL BILIRUBIN 0.2 mg/dL (0.2-1.0); TOTAL PROTEIN 7.7 g/dL (6.4-8.2)
== END ==
LOC: ONCLAB 14:00
PROVIDERS: ATTEND Internal Medicine Hematology & Oncology
DX: C34.11 Malignant neoplasm of upper lobe, right bronchus or lung (principal)
CPT/HCPCS: 36415; 80053; 85025

== ENCOUNTER → 2021-02-18 | Outpatient (CLI) | payer MEDICARE ==
[~2021-02-18] MED LIST changes: +HEPARIN PF 500 UNIT/5 ML DISP.SYRIN. IVP ONE; +IOHEXOL 300 MG/ML 100ML VIAL. IV ONE; +IOHEXOL 350 MG/ML 100 ML VIAL. IV ONE
--- NOTE | 2021-02-18 11:55 | RAD ---
Examination: CT angiography chest with IV contrast HISTORY: History of coughing up blood, shortness of breath COMPARISON: 01/01/2021 TECHNIQUE: Axial CT angiographic images of the chest were performed with IV contrast. Coronal and sag ittal 3-D MIP reformats are performed. Exposure: One or more of the following individualized dose reduction techniques were utilized for thi s examination: 1. Automated exposure control 2. Adjustment of the mA and/or kV according to patient size 3. Use of iterative reconstruction technique FINDINGS: The visualized thyroid gland grossly appears unremarkable. The caliber of the aorta grossly appears u nremarkable. The heart size grossly appears unremarkable. There is no evidence of filling defect iden tified in the main pulmonary arterial trunk and right and left main pulmonary arteries and the visual ized lobar, segmental branch of the pulmonary arteries. There is opacity/neoplasm identified in the r ight suprahilar and right hilar region identified with postobstructive consolidation or atelectasis o r neoplasm in the right upper lobe with the faint interstitial lung markings identified in the right lower lobe of the lung slightly increased since prior exam. There is mild narrowing of the right bron chial branches about the consolidation.. Moderate bilateral lung emphysematous changes. Mild decreased attenuation noted in the liver likely h epatic steatosis. The spleen, adrenals grossly appears unremarkable Mild degenerative changes thoracic spine. IMPRESSION: 1. No evidence of pulmonary embolism. 2. There is opacity/neoplasm identified in the right suprahilar and right hilar region identified wi th postobstructive consolidation or atelectasis or neoplasm in the right upper lobe of the lung with the faint interstitial lung markings identified in the right lower lobe of the lung slightly increase d since prior exam. Malignancy is a primary comparison. Recommend PET/CT scan.. 3. Moderate bilateral lung emphysematous changes. 4. Hepatic steatosis. Electronically signed by: Gustavo Valverde MD (02/18/2021 11:53 AM) [id number]
== END ==
LOC: CT 11:00
PROVIDERS: ATTEND Internal Medicine Hematology & Oncology
DX: C34.11 Malignant neoplasm of upper lobe, right bronchus or lung (principal); C79.31 Secondary malignant neoplasm of brain; K76.0 Fatty (change of) liver, not elsewhere classified; J43.9 Emphysema, unspecified; M47.814 Spondylosis without myelopathy or radiculopathy, thoracic region; J98.09 Other diseases of bronchus, not elsewhere classified
CPT/HCPCS: 71275; J1642; Q9967

== ENCOUNTER → 2021-02-24 | Outpatient (CLI) | payer MEDICARE ==
[~2021-02-24] MED LIST changes: -HEPARIN PF 500 UNIT/5 ML DISP.SYRIN. IVP ONE; -IOHEXOL 300 MG/ML 100ML VIAL. IV ONE; -IOHEXOL 350 MG/ML 100 ML VIAL. IV ONE
[2021-02-24 12:11] LABS: BASO % 1 % (0-3); EOS # 0.2 x10^3/uL (0.0-0.7); EOS % 4 % (0-3); HEMATOCRIT 37.5 % (36.0-47.0); HEMOGLOBIN 11.8 g/dL (12.0-15.5); LYMPH # 1.9 x10^3/uL (1.0-4.8); LYMPH % 37 % (24-48); MEAN CORPUSCULAR HEMOGLOBIN 26 pg (25-35); MEAN CORPUSCULAR HGB CONC 32 g/dL (31-37); MEAN CORPUSCULAR VOLUME 81 fL (79-100); MONO # 0.5 x10^3/uL (0.0-1.1); MONO % 10 % (0-9); NEUT # 2.5 x10^3/uL (1.8-7.7); NEUT % 48 % (31-73); PLATELET COUNT 227 x10^3/uL (140-400); RED BLOOD COUNT 4.62 x10^6/uL (3.50-5.40); RED CELL DISTRIBUTION WIDTH 18.4 % (11.5-14.5); WHITE BLOOD COUNT 5.2 x10^3/uL (4.0-11.0)
[2021-02-24 12:27] LABS: CALCIUM 8.1 mg/dL (8.5-10.1); CREATININE 0.9 mg/dL (0.6-1.0); GFR 64.5; POTASSIUM 4.2 mmol/L (3.5-5.1)
[2021-02-24 12:34] LABS: ALBUMIN 2.9 g/dL (3.4-5.0); ALBUMIN/GLOBULIN RATIO 0.6 (1.0-1.7); TOTAL BILIRUBIN 0.2 mg/dL (0.2-1.0); TOTAL PROTEIN 7.5 g/dL (6.4-8.2)
== END ==
LOC: ONCLAB 11:26
PROVIDERS: ATTEND Internal Medicine Hematology & Oncology
DX: C34.11 Malignant neoplasm of upper lobe, right bronchus or lung (principal)
CPT/HCPCS: 36415; 80053; 85025

== ENCOUNTER → 2021-02-26 | Outpatient (CLI) | payer MEDICARE ==
[~2021-02-26] MED LIST changes: +GADOTERATE 7.5 MMOL/15ML VIAL. IVP ONE
--- NOTE | 2021-02-26 15:05 | RAD ---
MRI of the Brain without and with Contrast 02/26/2021 Clinical History: Lung cancer. Staging. Technique: Unenhanced T1-weighted sagittal and axial and FLAIR, T2-weighted, susceptibility weighted and diffusion-weighted axial images of the brain were obtained. After the intravenous administration of 14 cc of Clariscan, enhanced T1-weighted axial, sagittal and coronal images of the brain were obta ined. Findings: Comparison study is dated 10/08/2020. The patient is post right parietal craniotomy. The ventricles and sulci are within normal limits in s ize and configuration. Patchy and multiple small focal areas of abnormally increased signal intensity are seen within the periventricular and subcortical white matter of both cerebral hemispheres on the FLAIR and T2-weighted images consistent most likely with areas of mild small vessel ischemic disease . No acute parenchymal abnormality is seen. There is no definite MRI evidence of acute ischemia/infarct ion. No extra-axial fluid collection is noted. No area of abnormal contrast enhancement is seen. Mild mucosal thickening in seen scattered throughout the paranasal sinuses. Normal flow voids are see n within the major vascular structures surrounding the brain parenchyma. IMPRESSION: No acute parenchymal abnormality is seen. There is no MRI evidence of metastatic disease involving the brain parenchyma. Electronically signed by: Ye Phillips MD (02/26/2021 3:02 PM) [id number]
--- NOTE | 2021-02-26 16:42 | RAD ---
EXAM: Dual modality PET-CT Scan DATE: 02/26/2021 RADIOPHARMACEUTICAL: 13 mCi F-18 fluorodeoxyglucose (FDG) IV. CLINICAL HISTORY: Lung cancer. COMPARISON: Brain MRI dated 02/26/2021. CT angiogram dated 02/18/2021. PET/CT dated 06/26/2020. TECHNIQUE: Approximately 45 minutes after tracer administration, routine, attenuation-corrected Posit itzel Emission Tomography (PET) images were obtained from the level of the base of the skull through th e level of the mid thighs. Tomographic reconstructions are reviewed in coronal, transaxial and sagitt al planes. Non-contrast CT imaging was performed for attenuation correction and localization purpose s only. These images do not constitute a diagnostic-quality CT examination and were not used to diag nose disease independently of the PET images. The blood glucose level was 87 mg/dL at the time of FDG administration. Injection time: 1445 hours. Scan time: 1530 hours. Background tracer activity: *One or more of the following individualized dose reduction techniques were utilized for this examina tion: 1. Automated exposure control. 2. Adjustment of the mA and/or kV according to patient size. 3. Use of iterative reconstruction technique. FINDINGS: There is increased radiotracer activity with a maximum SUV of 9.1 associated with a right s uprahilar mass or masslike consolidation measuring approximately 8.5 cm in maximum transaxial dimensi on. This extends to the overlying upper lobe pleura and into the right infrahilar region. This is not separable from suspected pathologically enlarged hilar lymph nodes. There is mild radiotracer activity within SUV of 5.1 within the posterior right thyroid lobe. This is similar compared to a measurement of 4.0 cm on the study performed 06/26/2020. There is symmetric rad iotracer activity involving the adenoid and tonsillar soft tissues and vocal cords, the former which is likely physiologic or inflammatory in the lateral which is likely physiologic. No abnormal contral ateral thoracic radiotracer activity is seen. No abnormal extrathoracic radiotracer activity is seen to suggest malignancy. The CT portion of the exam demonstrates a mass or masslike right suprahilar consolidation containing a component of air bronchograms and extending to the posterior and medial pleura. This measures appro ximately 8.5 cm in maximum transaxial dimension. There is increased right infrahilar soft tissue dens ity. There is bilateral lower lobe multifocal groundglass opacity. There is no pleural effusion or pn eumothorax. There is emphysema. The heart is normal in size. There is a right chest wall port catheter with the tip in the superior r ight atrium. There is suspected right hilar lymphadenopathy, difficult to separate from the adjacent mass or masslike consolidation. There are calcified right hilar and subcarinal granulomas. No hepatic lesion is seen. The gallbladder, pancreas, spleen and adrenal glands are unremarkable. The re is contrast within the renal collecting system due to a recent contrast-enhanced brain MRI. There is no bowel obstruction or abnormal bowel wall thickening. There is distal colonic diverticulosis. Th e bladder is nearly empty. The uterus is unremarkable. There is aortic and aortic branch vessel ather osclerosis. The visualized portions the brain are unremarkable. There is no neck lymphadenopathy. There are degen erative changes involving the spine. There is no acute or suspicious osseous lesion. There is a right hip arthroplasty. IMPRESSION: 1. Increased radiotracer activity within SUV of 9.1 associated with a right suprahilar mass or massli ke consolidation measuring approximately 8.5 cm in maximum dimension. The previously demonstrated rig ht upper lobe malignancy is not seen separate from this lesion. The differential includes progressive malignancy as well as relative recent post radiation changes. There may also be superimposed post ob structive pneumonia. Tissue sampling may be indicated for definitive diagnosis. 2. Suspected radiotracer avid right hilar lymphadenopathy, not clearly separable from the aforementio serge mass or masslike consolidation. 3. Small focus of increased tracer activity within SUV of 5.1 within the posterior right there are lo be. This can be assessed with a thyroid sonogram, if not previously performed. 4. Suspected physiologic or inflammatory activity involving the adenoid and tonsillar soft tissues. S imilar compared to the prior study. There is also visible activity involving the vocal cords. 5. Nodular groundglass opacities within bilateral lower lobes due to atelectasis or pneumonitis. 6. Emphysema. 7. Please refer to the above report for additional findings regarding the non-PET portion of the exam . Electronically signed by: Eleni Bob MD (02/26/2021 4:39 PM) [id number]
== END ==
LOC: MRI 12:56
PROVIDERS: ATTEND Radiology Radiation Oncology
DX: C79.31 Secondary malignant neoplasm of brain (principal); C34.11 Malignant neoplasm of upper lobe, right bronchus or lung; I70.0 Atherosclerosis of aorta
CPT/HCPCS: 70553; 78815; A9552; A9575

== ENCOUNTER → 2021-03-16 | Outpatient (CLI) | payer MEDICARE ==
[~2021-03-16] MED LIST changes: +BARIUM SULFATE 340 GM SUSPENSION. PO ONE; +BARIUM SULFATE 60% 355 ML SUSP PO ONE; +BARIUM SULFATE 700 MG TABLET PO ONE; -GADOTERATE 7.5 MMOL/15ML VIAL. IVP ONE; +SIMETHICONE/SOD BICARB/CITRIC ACID PACKET. PO ONE
--- NOTE | 2021-03-16 16:56 | RAD ---
EXAMINATION: DG BARIUM SWALLOW 03/16/2021 12:59 PM HISTORY: Dysphagia, lung cancer with radiation. The patient reports feeling like pills get stuck in her throat COMPARISON: None TECHNIQUE: The patient ingested effervescent crystals followed by thick and thin barium and was obser binta swallowing under intermittent fluoroscopy. FINDINGS: Suboptimal evaluation of esophageal mucosa due to poor air-contrast phase of the exam. Normal motilit y. No hiatal hernia or esophageal reflux. A barium tablet got stuck in the cervical esophagus. On review of cine clips after the exam, there is a thin linear indentation in the anterior cervical esophagus at the level of C5-C6 where the tablet got stuck, suspicious for an esophageal web. There may also be a tiny diverticulum extending posterio rly just above this. Thoracic esophagus distends normally without evidence of stricture or stenosis. No mass. Total fluoroscopic time:3.6 minutes. Dose:32.9 mGy. 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 A barium tablet got stuck in the esophagus at this level during the exam. Electronically signed by: Lynette Harris MD (03/16/2021 4:53 PM) [id number]
== END ==
LOC: RAD 13:47
PROVIDERS: ATTEND Internal Medicine
DX: R10.13 Epigastric pain (principal)
CPT/HCPCS: 74220

== ENCOUNTER → 2021-03-22 | Outpatient (CLI) | payer MEDICARE ==
[~2021-03-22] MED LIST changes: -BARIUM SULFATE 340 GM SUSPENSION. PO ONE; -BARIUM SULFATE 60% 355 ML SUSP PO ONE; -BARIUM SULFATE 700 MG TABLET PO ONE; -SIMETHICONE/SOD BICARB/CITRIC ACID PACKET. PO ONE
[2021-03-22 11:07] LABS: BASO # 0.1 x10^3/uL (0.0-0.2); BASO % 1 % (0-3); EOS # 0.4 x10^3/uL (0.0-0.7); EOS % 8 % (0-3); HEMATOCRIT 36.3 % (36.0-47.0); HEMOGLOBIN 11.3 g/dL (12.0-15.5); LYMPH # 1.6 x10^3/uL (1.0-4.8); LYMPH % 33 % (24-48); MEAN CORPUSCULAR HEMOGLOBIN 26 pg (25-35); MEAN CORPUSCULAR HGB CONC 31 g/dL (31-37); MEAN CORPUSCULAR VOLUME 83 fL (79-100); MONO # 0.5 x10^3/uL (0.0-1.1); MONO % 10 % (0-9); NEUT # 2.4 x10^3/uL (1.8-7.7); NEUT % 49 % (31-73); PLATELET COUNT 199 x10^3/uL (140-400); RED BLOOD COUNT 4.39 x10^6/uL (3.50-5.40); RED CELL DISTRIBUTION WIDTH 19.9 % (11.5-14.5)
[2021-03-22 11:17] LABS: CREATININE 0.9 mg/dL (0.6-1.0); GFR 64.5; POTASSIUM 4.1 mmol/L (3.5-5.1)
[2021-03-22 11:23] LABS: ALBUMIN 2.8 g/dL (3.4-5.0); ALBUMIN/GLOBULIN RATIO 0.6 (1.0-1.7); TOTAL BILIRUBIN 0.2 mg/dL (0.2-1.0); TOTAL PROTEIN 7.3 g/dL (6.4-8.2)
== END ==
LOC: ONCLAB 10:43
PROVIDERS: ATTEND Internal Medicine Hematology & Oncology
DX: C34.11 Malignant neoplasm of upper lobe, right bronchus or lung (principal)
CPT/HCPCS: 36415; 80053; 85025

== ENCOUNTER → 2021-04-12 | Outpatient (CLI) | payer MEDICARE ==
[2021-04-12 11:12] LABS: BASO % 0 % (0-3); EOS # 0.5 x10^3/uL (0.0-0.7); EOS % 8 % (0-3); HEMATOCRIT 36.3 % (36.0-47.0); HEMOGLOBIN 11.2 g/dL (12.0-15.5); LYMPH # 1.4 x10^3/uL (1.0-4.8); LYMPH % 25 % (24-48); MEAN CORPUSCULAR HEMOGLOBIN 25 pg (25-35); MEAN CORPUSCULAR HGB CONC 31 g/dL (31-37); MEAN CORPUSCULAR VOLUME 82 fL (79-100); MONO # 0.5 x10^3/uL (0.0-1.1); MONO % 9 % (0-9); NEUT # 3.4 x10^3/uL (1.8-7.7); NEUT % 59 % (31-73); PLATELET COUNT 299 x10^3/uL (140-400); RED BLOOD COUNT 4.45 x10^6/uL (3.50-5.40); RED CELL DISTRIBUTION WIDTH 18.6 % (11.5-14.5); WHITE BLOOD COUNT 5.8 x10^3/uL (4.0-11.0)
[2021-04-12 11:21] LABS: CALCIUM 7.8 mg/dL (8.5-10.1); CREATININE 0.9 mg/dL (0.6-1.0); GFR 64.3
[2021-04-12 11:27] LABS: ALBUMIN 2.8 g/dL (3.4-5.0); ALBUMIN/GLOBULIN RATIO 0.6 (1.0-1.7); TOTAL BILIRUBIN 0.2 mg/dL (0.2-1.0); TOTAL PROTEIN 7.2 g/dL (6.4-8.2)
== END ==
LOC: ONCLAB 10:54
PROVIDERS: ATTEND Internal Medicine Hematology & Oncology
DX: C34.11 Malignant neoplasm of upper lobe, right bronchus or lung (principal); C79.31 Secondary malignant neoplasm of brain
CPT/HCPCS: 36415; 80053; 85025

== ENCOUNTER → 2021-05-03 | Outpatient (CLI) | payer MEDICARE ==
[2021-05-03 11:08] LABS: CALCIUM 8.5 mg/dL (8.5-10.1); GFR 56.9; POTASSIUM 3.3 mmol/L (3.5-5.1)
[2021-05-03 11:11] LABS: BASO # 0.1 x10^3/uL (0.0-0.2); BASO % 1 % (0-3); EOS # 0.4 x10^3/uL (0.0-0.7); EOS % 10 % (0-3); HEMOGLOBIN 10.9 g/dL (12.0-15.5); LYMPH # 1.7 x10^3/uL (1.0-4.8); LYMPH % 38 % (24-48); MEAN CORPUSCULAR HEMOGLOBIN 26 pg (25-35); MEAN CORPUSCULAR HGB CONC 31 g/dL (31-37); MEAN CORPUSCULAR VOLUME 83 fL (79-100); MONO # 0.6 x10^3/uL (0.0-1.1); MONO % 15 % (0-9); NEUT # 1.6 x10^3/uL (1.8-7.7); NEUT % 36 % (31-73); PLATELET COUNT 246 x10^3/uL (140-400); RED BLOOD COUNT 4.21 x10^6/uL (3.50-5.40); RED CELL DISTRIBUTION WIDTH 18.1 % (11.5-14.5); WHITE BLOOD COUNT 4.4 x10^3/uL (4.0-11.0)
[2021-05-03 11:14] LABS: ALBUMIN/GLOBULIN RATIO 0.7 (1.0-1.7); TOTAL BILIRUBIN 0.2 mg/dL (0.2-1.0); TOTAL PROTEIN 7.6 g/dL (6.4-8.2)
== END ==
LOC: ONCLAB 10:37
PROVIDERS: ATTEND Internal Medicine Hematology & Oncology
DX: C34.11 Malignant neoplasm of upper lobe, right bronchus or lung (principal)
CPT/HCPCS: 36415; 80053; 85025

== ENCOUNTER → 2021-05-24 | Outpatient (CLI) | payer MEDICARE ==
[2021-05-24 11:31] LABS: CALCIUM 8.3 mg/dL (8.5-10.1); GFR 56.9; POTASSIUM 3.2 mmol/L (3.5-5.1)
[2021-05-24 11:35] LABS: BASO # 0.1 x10^3/uL (0.0-0.2); BASO % 1 % (0-3); EOS # 0.4 x10^3/uL (0.0-0.7); EOS % 6 % (0-3); HEMATOCRIT 36.1 % (36.0-47.0); HEMOGLOBIN 11.5 g/dL (12.0-15.5); LYMPH # 3.2 x10^3/uL (1.0-4.8); LYMPH % 44 % (24-48); MEAN CORPUSCULAR HEMOGLOBIN 26 pg (25-35); MEAN CORPUSCULAR HGB CONC 32 g/dL (31-37); MEAN CORPUSCULAR VOLUME 83 fL (79-100); MONO # 0.8 x10^3/uL (0.0-1.1); MONO % 11 % (0-9); NEUT # 2.9 x10^3/uL (1.8-7.7); NEUT % 39 % (31-73); PLATELET COUNT 247 x10^3/uL (140-400); RED BLOOD COUNT 4.36 x10^6/uL (3.50-5.40); WHITE BLOOD COUNT 7.4 x10^3/uL (4.0-11.0)
[2021-05-24 11:37] LABS: ALBUMIN 3.1 g/dL (3.4-5.0); ALBUMIN/GLOBULIN RATIO 0.7 (1.0-1.7); TOTAL BILIRUBIN 0.4 mg/dL (0.2-1.0); TOTAL PROTEIN 7.7 g/dL (6.4-8.2)
[2021-05-24 12:58] LABS: FREE T4 0.74 ng/dL (0.76-1.46); THYROID STIM HORMONE (TSH) 8.363 uIU/mL (0.358-3.74)
== END ==
LOC: ONCLAB 10:53
PROVIDERS: ATTEND Internal Medicine Hematology & Oncology
DX: C34.11 Malignant neoplasm of upper lobe, right bronchus or lung (principal); C79.31 Secondary malignant neoplasm of brain; E03.2 Hypothyroidism due to medicaments and other exogenous substances
CPT/HCPCS: 36415; 80053; 82533; 83735; 84439; 84443; 85025; 87070; 87077; 87186

== ENCOUNTER → 2021-06-03 | Outpatient (CLI) | payer MEDICARE ==
[~2021-06-03] MED LIST changes: +GADOTERATE 7.5 MMOL/15ML VIAL. IVP ONE
--- NOTE | 2021-06-03 14:54 | KCIC ---
STUDY: MRI of the brain COMPARISON: Similar exam dated 02/26/2021 INDICATION:Metastases to the brain, follow-up. TECHNIQUE: Multiplanar multisequence imaging was obtained through the brain. Images are obtained bot h before and after administration of IV gadolinium. . FINDINGS: There stable postsurgical changes of right parietal craniotomy. There is no evidence of intracranial hemorrhage, mass or edema. There are a few periventricular and deep subcortical white matter focal signal abnormalities which ar e stable, chronic, and most consistent with small vessel ischemic gliosis. No new signal abnormalitie s on T2 weighted or diffusion weighted imaging. There is no abnormal enhancement after the administration of contrast. The ventricles and basilar cisterns are normal in size and configuration for the patients age. There is no evidence of mass effect or shift of the midline structures. Posterior fossa structures including the cerebellum and brainstem are unremarkable. Limited imaging of the orbits demonstrates no orbital abnormality. There are normal flow voids in the arteries at the level of the [place]. Visualized paranasal sinuses are clear IMPRESSION: 1. Stable MRI of the brain with postsurgical changes of right parietal craniotomy and no evidence of residual, recurrent, or new metastatic disease. Electronically signed by: Saw Arenas MD (06/03/2021 2:51 PM) [id number]
== END ==
LOC: KCIC MRI 10:11
PROVIDERS: ATTEND Radiology Radiation Oncology
DX: C79.31 Secondary malignant neoplasm of brain (principal)
CPT/HCPCS: 70553; A9575

== ENCOUNTER → 2021-06-09 | Outpatient (CLI) | payer MEDICARE ==
[~2021-06-09] MED LIST changes: -GADOTERATE 7.5 MMOL/15ML VIAL. IVP ONE; +HEPARIN PF 500 UNIT/5 ML DISP.SYRIN. IVP ONE; +IOHEXOL 240 MG/ML 50ML VIAL. PO ONE; +IOHEXOL 300 MG/ML 100ML VIAL. IV ONE
--- NOTE | 2021-06-09 14:30 | RAD ---
CT CHEST+ABD+PELVIS W History: Lung cancer restaging. Comparison: CTA chest 02/18/2021. PET/CT 02/26/2021. CT chest, abdomen and pelvis 01/01/2021, 11/03/2020. Technique: CT of the chest, abdomen and pelvis with oral and intravenous contrast. Findings: Chest: Devices: Accessed right chest Mediport with catheter tip terminating at cavoatrial junction. Pulmonary arteries: No large or central pulmonary embolism. Aorta and great vessels: No aneurysm of the aortic arch or thoracic aorta is seen. Mild atherosclerot ic calcification. Heart: The heart is normal in size. There is no pericardial effusion. No coronary artery calcificatio n. Thyroid: No significant abnormalities. Mediastinum and rhonda: Confluent right superior hilar soft tissue density with bronchiectasis and surr ounding soft tissue extending to the posterior right upper lobe. The spiculated mass from October 15 is not well visualized in the confluent soft tissue from December 2020 is less conspicuous. Findi ngs are similar to February 2021 comparison. Esophagus: The visualized esophagus is normal. Airways, Lungs, Pleura: Confluent soft tissue density extending from the right superior hilum to the posterior aspect of the right upper lobe similar to February comparison however decreased in conspicui ty from December 2020. Associated bronchiectasis and surrounding groundglass attenuation. Patchy grou ndglass attenuation in the right greater than left lower lobe, similar or mildly increased from omer risons. No pleural effusion. No new discrete pulmonary nodules. Soft tissue and osseous: Soft tissues are unremarkable. No suspicious lytic or blastic osseous lesion s. Abdomen/Pelvis: General abdomen: No ascites. No free air. Liver : Normal in size and attenuation. No masses seen. Gallbladder/Biliary Tree: Normal gallbladder. No intrahepatic or extrahepatic biliary ductal dilatati on. Pancreas: Normal. Spleen: Normal in size and attenuation. Adrenal glands: Normal. Kidneys: No hydronephrosis or hydroureter. No renal masses identified. Gastrointestinal: Minimal sigmoid diverticulosis. Lymph nodes: No lymphadenopathy. Vessels: Atherosclerotic calcification without aneurysm of the aorta and iliac arteries. Pelvic Organs: Unremarkable reproductive organs. No pelvic masses. Bladder is obscured by artifact fr om left hip arthroplasty. Soft tissues: Unremarkable. Bones: No acute or aggressive lesions. Impression: 1. Posttreatment changes of the right upper lobe with confluent soft tissue density at the right sup erior hilum extension the posterior right upper lobe, similar in appearance to most recent comparison , decreased in conspicuity from December 2020. No mediastinal adenopathy or new mass. 2. Increasing conspicuity of groundglass opacities in the right lower lobe which may represent infec tious or inflammatory changes including pneumonitis. 3. No evidence of metastatic disease in the abdomen and pelvis. ------ Exposure: One or more of the following individualized dose reduction techniques were utilized for thi s examination: 1. Automated exposure control 2. Adjustment of the mA and/or kV according to patient size 3. Use of iterative reconstruction technique. Electronically signed by: Juventino Nassar MD (06/09/2021 2:27 PM) [facility]
== END ==
LOC: CT 08:54
PROVIDERS: ATTEND Internal Medicine Hematology & Oncology
DX: C34.11 Malignant neoplasm of upper lobe, right bronchus or lung (principal); J47.9 Bronchiectasis, uncomplicated; K57.30 Diverticulosis of large intestine without perforation or abscess without bleeding; Z96.642 Presence of left artificial hip joint
CPT/HCPCS: 71260; 74177; J1642; Q9966; Q9967

== ENCOUNTER → 2021-06-14 | Outpatient (CLI) | payer MEDICARE ==
[~2021-06-14] MED LIST changes: -HEPARIN PF 500 UNIT/5 ML DISP.SYRIN. IVP ONE; -IOHEXOL 240 MG/ML 50ML VIAL. PO ONE; -IOHEXOL 300 MG/ML 100ML VIAL. IV ONE
[2021-06-14 10:47] LABS: BASO % 1 % (0-3); EOS % 1 % (0-3); HEMATOCRIT 36.2 % (36.0-47.0); HEMOGLOBIN 11.7 g/dL (12.0-15.5); LYMPH # 2.1 x10^3/uL (1.0-4.8); LYMPH % 50 % (24-48); MEAN CORPUSCULAR HEMOGLOBIN 27 pg (25-35); MEAN CORPUSCULAR HGB CONC 32 g/dL (31-37); MEAN CORPUSCULAR VOLUME 83 fL (79-100); MONO # 0.4 x10^3/uL (0.0-1.1); MONO % 8 % (0-9); NEUT # 1.7 x10^3/uL (1.8-7.7); NEUT % 40 % (31-73); PLATELET COUNT 250 x10^3/uL (140-400); RED BLOOD COUNT 4.38 x10^6/uL (3.50-5.40); RED CELL DISTRIBUTION WIDTH 17.9 % (11.5-14.5); WHITE BLOOD COUNT 4.2 x10^3/uL (4.0-11.0)
[2021-06-14 10:59] LABS: ALBUMIN 2.8 g/dL (3.4-5.0); ALBUMIN/GLOBULIN RATIO 0.7 (1.0-1.7); CALCIUM 8.2 mg/dL (8.5-10.1); GFR 56.9; TOTAL BILIRUBIN 0.4 mg/dL (0.2-1.0)
[2021-06-14 11:01] LABS: POTASSIUM 2.8 mmol/L (3.5-5.1)
== END ==
LOC: ONCLAB 10:10
PROVIDERS: ATTEND Internal Medicine Hematology & Oncology
DX: C34.11 Malignant neoplasm of upper lobe, right bronchus or lung (principal)
CPT/HCPCS: 36415; 80053; 85025

== ENCOUNTER → 2021-07-05 | Outpatient (CLI) | payer MEDICARE ==
[2021-07-05 13:09] LABS: BASO % 1 % (0-3); EOS # 0.4 x10^3/uL (0.0-0.7); EOS % 10 % (0-3); HEMATOCRIT 35.5 % (36.0-47.0); HEMOGLOBIN 11.4 g/dL (12.0-15.5); LYMPH # 1.9 x10^3/uL (1.0-4.8); LYMPH % 47 % (24-48); MEAN CORPUSCULAR HEMOGLOBIN 27 pg (25-35); MEAN CORPUSCULAR HGB CONC 32 g/dL (31-37); MEAN CORPUSCULAR VOLUME 83 fL (79-100); MONO # 0.3 x10^3/uL (0.0-1.1); MONO % 8 % (0-9); NEUT # 1.4 x10^3/uL (1.8-7.7); NEUT % 34 % (31-73); PLATELET COUNT 172 x10^3/uL (140-400); RED BLOOD COUNT 4.26 x10^6/uL (3.50-5.40); RED CELL DISTRIBUTION WIDTH 18.8 % (11.5-14.5)
[2021-07-05 13:13] LABS: CALCIUM 8.1 mg/dL (8.5-10.1); CREATININE 1.1 mg/dL (0.6-1.0); POTASSIUM 3.4 mmol/L (3.5-5.1)
[2021-07-05 13:19] LABS: ALBUMIN 2.9 g/dL (3.4-5.0); ALBUMIN/GLOBULIN RATIO 0.7 (1.0-1.7); TOTAL BILIRUBIN 0.4 mg/dL (0.2-1.0); TOTAL PROTEIN 7.1 g/dL (6.4-8.2)
== END ==
LOC: ONCLAB 12:40
PROVIDERS: ATTEND Internal Medicine Hematology & Oncology
DX: C34.11 Malignant neoplasm of upper lobe, right bronchus or lung (principal)
CPT/HCPCS: 36415; 80053; 85025